=== PATIENT | male | born 1955 ===

== ENCOUNTER 2017-09-02 09:44 | Inpatient (IN) | payer OTHER ==
--- NOTE | 2017-09-02 10:58 | C.PDOC ---
History Of Present Illness 62 y/o male with PMHx of Asthma and HTN presents to ED with complaints of persistent sob, cough and chest tightness for 3 weeks. Patient states he has no medication for nebulizer and inhaler. Patient admits he is not compliant with any of his chronic medication. Patient denies fever, chills, nausea or any other complaints at this time. No h/o intubations for asthma. Time Seen by Provider: 09/02/17 10:45 Chief Complaint (Nursing): Shortness Of Breath History Per: Patient History/Exam Limitations: no limitations Onset/Duration Of Symptoms: Days Current Symptoms Are (Timing): Still Present Initiating Event: Upper Respiratory Illness Past Medical History Reviewed: Historical Data, Nursing Documentation, Vital Signs Vital Signs: Last Vital Signs Temp 97.5 F L 09/03/17 07:43 Pulse 92 H 09/03/17 08:51 Resp 20 09/03/17 07:43 BP 145/85 09/03/17 07:43 Pulse Ox 98 09/03/17 12:20 - Medical History PMH: Asthma, HTN Surgical History: No Surg Hx - [facility] Procedures EXCISION OF SMALL INTESTINE, ENDO, DIAGN (06/17/16) Family History: States: No Known Family Hx - Social History Hx Tobacco Use: No Hx Alcohol Use: No Hx Substance Use: No - Immunization History Hx Tetanus Toxoid Vaccination: No Hx Influenza Vaccination: No Hx Pneumococcal Vaccination: No Review Of Systems Constitutional: Negative for: Fever, Chills Cardiovascular: Positive for: Chest Pain. Negative for: Palpitations Respiratory: Positive for: Cough, Shortness of Breath Gastrointestinal: Negative for: Nausea, Vomiting Skin: Negative for: Rash Physical Exam - Physical Exam Appears: Non-toxic, No Acute Distress, Other (pt speaking in full sentences) Skin: Warm, Dry, No Rash Head: Atraumatic, Normacephalic Eye(s): bilateral: Normal Inspection, EOMI Nose: Normal Oral Mucosa: Moist Neck: Normal ROM, Supple Chest: Symmetrical Cardiovascular: Rhythm Regular Respiratory: No Accessory Muscle Use, No Rales, No Rhonchi, Wheezing (bilateral) Gastrointestinal/Abdominal: Soft, No Tenderness, No Guarding, No Rebound Extremity: No Pedal Edema, Capillary Refill (<2 seconds) Neurological/Psych: Oriented x3 ED Course And Treatment - Laboratory Results Result Diagrams: 09/03/17 06:37 09/02/17 11:29 ECG: Interpreted By Me, Viewed By Me ECG Rhythm: Sinus Rhythm Rate From EC (BPM) O2 Sat by Pulse Oximetry: 98 (RA) Pulse Ox Interpretation: Normal - Other Rad CXR X-Ray: Viewed By Me, Read By Radiologist Interpretation: HISTORY: SOB. COMPARISON: Chest x-ray performed 06/17/16. TECHNIQUE: Chest, one view. FINDINGS: Examination limited by habitus. LUNGS : No focal consolidation. Please note that chest x-ray has limited sensitivity for the detection of pulmonary masses. PLEURA: No significant pleural effusion identified. No definite pneumothorax . CARDIOVASCULAR: Heart size appears within normal limits. OSSEOUS STRUCTURES: No acute osseous abnormality identified. VISUALIZED UPPER ABDOMEN: Unremarkable. OTHER FINDINGS: None. IMPRESSION: No focal consolidation, significant pleural effusion, or definite pneumothorax identified. Progress Note: ECG, CXR, Neb treatment ordered. On reassessment, patient is still sob and wheezing. Discussed with who will admit patient under his service Disposition - Disposition Disposition: HOSPITALIZED Disposition Time: 17:00 Condition: STABLE - Clinical Impression Clinical Impression: Asthma with status asthmaticus - PA / FASHION PHOTOGRAPHER / Resident Statement MD/DO has reviewed & agrees with the documentation as recorded. - Scribe Statement The provider has reviewed the documentation as recorded by the Pollyibbrenna Adorno All medical record entries made by the Pollyibbrenna were at my direction and personally dictated by me. I have reviewed the chart and agree that the record accurately reflects my personal performance of the history, physical exam, medical decision making, and the department course for this patient. I have also personally directed, reviewed, and agree with the discharge instructions and disposition.
[2017-09-02] MEDS ORDERED: Sodium Chloride 0.9% 1,000 ML IV ONE (10:59)
[2017-09-02] MEDS ORDERED: Albuterol-Ipratrop 3 mg / 0.5 (3 ml) UD INH STA ×4 (10:59→14:11)
[2017-09-02] MEDS ORDERED: Sodium Chloride 0.9% 1,000 ML ONE (11:19)
[2017-09-02] MEDS ORDERED: Albuterol-Ipratrop 3 mg / 0.5 (3 ml) UD ONE ×4 (11:24→15:06)
[2017-09-02 11:39] LABS: BASO # 0.1 K/uL (0.0-0.2); BASO % 1.1 % (0.0-2.0); EOS # 1.2 K/uL (0.0-0.7); EOS % 13.6 % (0.0-4.0); HEMOGLOBIN 14.8 g/dL (12.0-18.0); LYMPH # 1.7 K/uL (1.0-4.3); LYMPH % 19.9 % (20.0-40.0); MEAN CELL VOLUME 91.7 fL (80.0-94.0); MEAN CORPUSCULAR HEMOGLOBIN 31.1 pg (27.0-31.0); MEAN CORPUSCULAR HGB CONC 33.9 g/dL (33.0-37.0); MEAN PLATELET VOLUME 8.4 fL (7.2-11.7); MONO # 0.7 K/uL (0.0-0.8); MONO % 8.5 % (0.0-10.0); NEUT # 4.9 K/uL (1.8-7.0); NEUT % 56.9 % (50.0-75.0); RBC 4.75 Mil/uL (4.40-5.90); RED CELL DISTRIBUTION WIDTH 12.9 % (11.5-14.5); WHITE BLOOD COUNT 8.6 K/uL (4.8-10.8)
[2017-09-02 11:52] LABS: ALB/GLOB RATIO 1.3 (1.0-2.1); ALBUMIN 4.2 g/dL (3.5-5.0); ALT/SGPT 34 U/L (21-72); AST/SGOT 32 U/L (17-59); BLOOD UREA NITROGEN 21 mg/dL (9-20); CALCIUM 8.9 mg/dl (8.6-10.4); GFR AFRICAN-AMERICAN > 60; GFR NON-AFRICAN AMERICAN > 60
[2017-09-02 12:07] LABS: B-TYPE NATRIURETIC PEPTIDE 104 pg/mL (0-900); CK-MB 1.62 ng/mL (0.0-3.38)
--- NOTE | 2017-09-02 12:44 | RAD ---
HISTORY: SOB COMPARISON: Chest x-ray performed 06/17/16 TECHNIQUE: Chest, one view. FINDINGS: Examination limited by habitus. LUNGS: No focal consolidation. Please note that chest x-ray has limited sensitivity for the detection of pulmonary masses. PLEURA: No significant pleural effusion identified. No definite pneumothorax . CARDIOVASCULAR: Heart size appears within normal limits. OSSEOUS STRUCTURES: No acute osseous abnormality identified. VISUALIZED UPPER ABDOMEN: Unremarkable. OTHER FINDINGS: None. IMPRESSION: No focal consolidation, significant pleural effusion, or definite pneumothorax identified.
[2017-09-02] MEDS ORDERED: Albuterol-Ipratrop 3 mg / 0.5 (3 ml) UD INH PRN (15:39)
--- NOTE | 2017-09-02 16:11 | CP.PCM.HP ---
<Flaca Isabel - Last Filed: 09/02/17 16:12> History of Present Illness - History of Present Illness History of Present Illness: CC - "Shortness of breath" HPI - Patient is a 60 year old male with history of asthma who presents to the emergency department with complaint of cough, SOB, whezing, and chest tightness that began 3 weeks ago. Patient states that he is supposed to be using his albuterol outpatient but has ran out and is not taking the other medications. He reports that he is supposed to follow up in the clinic downstairs. He has made No history of intubation for asthma exacerbation. Patient denies fever/chills, head aches, changes in vision, N/V/ abd pain, diahhrea. Admits to mild muscle aches. Past medical hx: asthma, GERD Past surgical hx: none Family Hx: mother and father had HTN and DM Meds: Albuterol pump, has not used any meds in 3 weeks because he ran out Allergies: none Social hx: lives with judaism friends, denies smoking, alcohol use, or drugs. Work at a car [employer] PMD - Dr. Goldsmith, last visit June 2017 Present on Admission - Present on Admission Any Indicators Present on Admission: No Review of Systems - Constitutional Constitutional: absent: Chills, Fever - EENT Eyes: absent: Blurred Vision, Change in Vision - Cardiovascular Cardiovascular: absent: Chest Pain, Chest Pain at Rest, Palpitations - Respiratory Respiratory: absent: Cough, Dyspnea, Dyspnea on Exertion - Gastrointestinal Gastrointestinal: absent: Abdominal Pain, Constipation, Diarrhea, Nausea, Vomiting - Genitourinary Genitourinary: absent: Change in Urinary Stream, Difficulty Urinating - Neurological Neurological: absent: Abnormal Gait, Tingling, Weakness Past Patient History - Infectious Disease Hx of Infectious Diseases: None - Past Medical History & Family History Past Medical History?: Yes - Past Social History Smoking Status: Former Smoker - CARDIAC Hx Hypertension: Yes - PULMONARY Hx Asthma: Yes - NEUROLOGICAL Hx Neurological Disorder: No - HEENT Hx HEENT Problems: No - RENAL Hx Chronic Kidney Disease: No - ENDOCRINE/METABOLIC Hx Endocrine Disorders: No - HEMATOLOGICAL/ONCOLOGICAL Hx Blood Disorders: No Hx Blood Transfusions: No - INTEGUMENTARY Hx Dermatological Problems: No - MUSCULOSKELETAL/RHEUMATOLOGICAL Hx Musculoskeletal Disorders: No Hx Falls: No - GASTROINTESTINAL Hx Gastrointestinal Disorders: No - GENITOURINARY/GYNECOLOGICAL Hx Genitourinary Disorders: No - PSYCHIATRIC Hx Substance Use: No - SURGICAL HISTORY Hx Surgeries: No - ANESTHESIA Hx Anesthesia: No Hx Anesthesia Reactions: No Meds Allergies/Adverse Reactions: Allergies Allergy/AdvReac Type Severity Reaction Status Date / Time No Known Allergies Allergy Verified 06/15/16 16:37 Physical Exam - Constitutional Appears: Non-toxic, No Acute Distress - Head Exam Head Exam: ATRAUMATIC, NORMAL INSPECTION - Eye Exam Eye Exam: EOMI Pupil Exam: NORMAL ACCOMODATION - ENT Exam ENT Exam: Mucous Membranes Moist - Respiratory Exam Respiratory Exam: Wheezes, NORMAL BREATHING PATTERN. absent: Accessory Muscle Use, Clear to Auscultation Bilateral, Respiratory Distress Additional comments: speaking in full sentences - Cardiovascular Exam Cardiovascular Exam: REGULAR RHYTHM, +S1, +S2 - GI/Abdominal Exam GI & Abdominal Exam: Normal Bowel Sounds, Soft. absent: Distended, Firm, Guarding, Tenderness - Extremities Exam Extremities exam: Positive for: normal inspection - Back Exam Back exam: NORMAL INSPECTION. absent: CVA tenderness (L), CVA tenderness (R), paraspinal tenderness - Neurological Exam Neurological exam: Alert, CN II-XII Intact, Normal Gait, Oriented x3 - Psychiatric Exam Psychiatric exam: Normal Affect, Normal Mood - Skin Skin Exam: Dry, Intact, Normal Color, Warm Results - Vital Signs Recent Vital Signs: Last Vital Signs Temp 98.3 F 09/02/17 09:48 Pulse 74 09/02/17 14:09 Resp 14 09/02/17 14:09 BP 146/89 09/02/17 14:09 Pulse Ox 98 09/02/17 14:44 - Labs Result Diagrams: 09/02/17 11:29 09/02/17 11:29 Labs: Laboratory Results - last 24 hr 09/02/17 09/02/17 11:29 11:29 WBC 8.6 RBC 4.75 Hgb 14.8 Hct 43.5 MCV 91.7 MCH 31.1 H MCHC 33.9 RDW 12.9 Plt Count 246 MPV 8.4 Neut % (Auto) 56.9 Lymph % (Auto) 19.9 L Runnels % (Auto) 8.5 Eos % (Auto) 13.6 H Baso % (Auto) 1.1 Neut # (Auto) 4.9 Lymph # (Auto) 1.7 Runnels # (Auto) 0.7 Eos # (Auto) 1.2 H Baso # (Auto) 0.1 Sodium 138 Potassium 4.0 Chloride 99 Carbon Dioxide 28 Anion Gap 15 BUN 21 H Creatinine 0.8 Est GFR ( Amer) > 60 Est GFR (Non-Af Amer) > 60 Random Glucose 99 Calcium 8.9 Total Bilirubin 0.5 AST 32 ALT 34 Alkaline Phosphatase 70 Total Creatine Kinase 129 CK-MB (Mass) 1.62 Troponin I < 0.0120 NT-Pro-B Natriuret Pep 104 Total Protein 7.5 Albumin 4.2 Globulin 3.3 Albumin/Globulin Ratio 1.3 Assessment & Plan - Assessment and Plan (Free Text) Assessment: Asthma exacerbation Patient is speaking in full sentences, wheezing Duonebs prn wheezing Q4 hours with peak flows SoluMedrol 40mg IVP Q6 Singulair 10mg PO HS Advair 250/50 1 puff Q12 hours Chest X rya - no signs of pneumonia WBC wnl ,afebrile f/u influenza f/u am labs Patient is noncompliant with follow up or with medications at home Hypertension Patient was prescribed meds on last visit but has no been taking Amlodipine 5mg PO daily Can increase if indicated Prophylactic Measures Protonix 40mg PO daily Lovenox 40mg SC daily Heart healthy diet <Armani Parsons H - Last Filed: 09/02/17 17:59> Results - Vital Signs Recent Vital Signs: Last Vital Signs Temp 98.3 F 09/02/17 09:48 Pulse 74 09/02/17 14:09 Resp 14 09/02/17 14:09 BP 146/89 09/02/17 14:09 Pulse Ox 98 09/02/17 14:44 - Labs Result Diagrams: 09/02/17 11:29 09/02/17 11:29 Labs: Laboratory Results - last 24 hr 09/02/17 09/02/17 11:29 11:29 WBC 8.6 RBC 4.75 Hgb 14.8 Hct 43.5 MCV 91.7 MCH 31.1 H MCHC 33.9 RDW 12.9 Plt Count 246 MPV 8.4 Neut % (Auto) 56.9 Lymph % (Auto) 19.9 L Runnels % (Auto) 8.5 Eos % (Auto) 13.6 H Baso % (Auto) 1.1 Neut # (Auto) 4.9 Lymph # (Auto) 1.7 Runnels # (Auto) 0.7 Eos # (Auto) 1.2 H Baso # (Auto) 0.1 Sodium 138 Potassium 4.0 Chloride 99 Carbon Dioxide 28 Anion Gap 15 BUN 21 H Creatinine 0.8 Est GFR ( Amer) > 60 Est GFR (Non-Af Amer) > 60 Random Glucose 99 Calcium 8.9 Total Bilirubin 0.5 AST 32 ALT 34 Alkaline Phosphatase 70 Total Creatine Kinase 129 CK-MB (Mass) 1.62 Troponin I < 0.0120 NT-Pro-B Natriuret Pep 104 Total Protein 7.5 Albumin 4.2 Globulin 3.3 Albumin/Globulin Ratio 1.3 Attending/Attestation - Attestation I have personally seen and examined this patient.: Yes I have fully participated in the care of the patient.: Yes I have reviewed all pertinent clinical information: Yes Notes (Text): 09/02/17 17:59 Medical attending: Patient was seen and examined by me, agree the above note by medical unit secretary. Patient was seen in the ER. He was not in any acute distress however he did having wheezing on examination. Will order IV solumedrol, nebulizer treatments and also singuliar. check pre and post peak flows. Thank you very much, Armani Parsons
[2017-09-02] MEDS: MethylPREDNISolone 40 mg Vial IVP SCH ×3 (18:44→23:54)
[2017-09-03] MEDS: Acetylcysteine 20% Inhal Soln (4ml) INH SCH ×3 (00:23→21:50)
[2017-09-03 01:33] VITALS: RESP 20
[2017-09-03] MEDS: MethylPREDNISolone 40 mg Vial IVP SCH ×2 (05:40→11:29)
[2017-09-03 07:18] LABS: BASO % 0.4 % (0.0-2.0); HEMOGLOBIN 14.3 g/dL (12.0-18.0); LYMPH % 9.5 % (20.0-40.0); MEAN CELL VOLUME 91.3 fL (80.0-94.0); MEAN CORPUSCULAR HEMOGLOBIN 30.9 pg (27.0-31.0); MEAN CORPUSCULAR HGB CONC 33.9 g/dL (33.0-37.0); MEAN PLATELET VOLUME 8.5 fL (7.2-11.7); MONO # 0.2 K/uL (0.0-0.8); MONO % 2.1 % (0.0-10.0); NEUT # 9.6 K/uL (1.8-7.0); PLATELET COUNT 241 K/uL (130-400); RBC 4.61 Mil/uL (4.40-5.90); RED CELL DISTRIBUTION WIDTH 13.1 % (11.5-14.5); WHITE BLOOD COUNT 10.9 K/uL (4.8-10.8)
[2017-09-03] MEDS: Fluticasone-Salmeterol 250-50mcg Diskus INH SCH ×3 (07:29→21:48)
[2017-09-03 07:59] LABS: MAGNESIUM 1.7 mg/dL (1.6-2.3)
[2017-09-03] MEDS ORDERED: Acetylcysteine 20% Inhal Soln (4ml) INH PRN (09:16)
[2017-09-03] MEDS ORDERED: Influenza Vaccine 60 mcg/0.5 mL SYR (4YR UP) IM ONE (10:00)
[2017-09-03] MEDS ORDERED: Pneumococcal 23-Valent Vaccine IM ONE ×2 (10:00)
[2017-09-03 10:22] LABS: BANDS 1 % (0-2); LYMPHOCYTE 9 % (20-40); MONOCYTE 2 % (0-10); NEUTROPHIL 88 % (50-75); PLATELET ESTIMATE NORMAL (NORMAL); TOTAL CELLS COUNTED 100
[2017-09-03] MEDS: Pantoprazole 40 mg EC Tab PO SCH (11:29)
[2017-09-03] MEDS: Enoxaparin 40 mg Syringe SC SCH (11:29)
[2017-09-03] MEDS: guaiFENesin 600 mg ER Tab PO SCH ×2 (11:29→17:16)
[2017-09-03] MEDS: Albuterol-Ipratrop 3 mg / 0.5 (3 ml) UD INH SCH ×2 (11:30→21:33)
[2017-09-03] MEDS ORDERED: MethylPREDNISolone 40 mg Vial IVP SCH (11:34)
--- NOTE | 2017-09-03 12:53 | CP.PCM.PN ---
<Theodore Luis - Last Filed: 09/03/17 12:50> Subjective - Date & Time of Evaluation Date of Evaluation: 09/03/17 Time of Evaluation: 11:00 - Subjective Subjective: Medicine progress note for Dr. Parsons Patient seen and examined. Patient reports that he feels like he has some phlegm that he cannot clear. Patient reports continued cough. Denies fever, chills, chest pain, dyspnea, abdominal pain, dysuria. Objective - Vital Signs/Intake and Output Vital Signs (last 24 hours): Temp Pulse Resp BP Pulse Ox 97.5 F L 92 H 20 145/85 98 09/03/17 07:43 09/03/17 08:51 09/03/17 07:43 09/03/17 07:43 09/03/17 07:43 Intake and Output: 09/03/17 09/03/17 06:59 18:59 Intake Total 400 Output Total 2 Balance 398 - Medications Medications: Current Medications Acetylcysteine (Acetylcysteine 20%) 4 ml INH RQ4 [facility] Albuterol/Ipratropium (Duoneb 3 Mg/0.5 Mg (3 Ml) Ud) 3 ml INH RQ4 [facility] Amlodipine Besylate (Norvasc) 5 mg PO DAILY [facility] Last Admin: 09/03/17 11:30 Dose: 5 mg Enoxaparin Sodium (Lovenox) 40 mg SC DAILY [facility] Last Admin: 09/03/17 11:29 Dose: 40 mg Guaifenesin (Mucinex La) 600 mg PO BID [facility] Last Admin: 09/03/17 11:29 Dose: 600 mg Methylprednisolone (Solu-Medrol) 60 mg IVP Q6 [facility] Montelukast Sodium (Singulair) 10 mg PO HS [facility] Last Admin: 09/02/17 21:28 Dose: 10 mg Pantoprazole Sodium (Protonix Ec Tab) 40 mg PO DAILY [facility] Last Admin: 09/03/17 11:29 Dose: 40 mg Fluticasone/Salmeterol (Advair Diskus 250/50) 1 puff INH RQ12 [facility] Last Admin: 09/03/17 07:29 Dose: Not Given - Labs Labs: 09/03/17 06:37 09/02/17 11:29 - Constitutional Appears: No Acute Distress - Head Exam Head Exam: ATRAUMATIC, NORMOCEPHALIC - Eye Exam Eye Exam: EOMI, Normal appearance - ENT Exam ENT Exam: Mucous Membranes Moist - Respiratory Exam Respiratory Exam: NORMAL BREATHING PATTERN. absent: Rales, Rhonchi, Wheezes Additional comments: Coarse breath sounds with congestion heard when patient coughs. Patient speaking in non-labored full sentences. - Cardiovascular Exam Cardiovascular Exam: REGULAR RHYTHM, +S1, +S2 - GI/Abdominal Exam GI & Abdominal Exam: Soft, Normal Bowel Sounds. absent: Tenderness - Extremities Exam Extremities Exam: absent: Pedal Edema, Tenderness - Neurological Exam Neurological Exam: Alert, Awake, Oriented x3 - Psychiatric Exam Psychiatric exam: Normal Affect, Normal Mood - Skin Skin Exam: Dry, Warm Assessment and Plan - Assessment and Plan (Free Text) Plan: Asthma exacerbation Duonebs Q4H [facility] with Mucomyst Q4H [facility] alongside Mucinex 600 mg PO BID SoluMedrol 60mg IVP Q6 Singulair 10mg PO HS Advair 250/50 1 puff Q12 hours Chest X ray - no signs of pneumonia ifluenza negative Patient is noncompliant with follow up or with medications at home Hypertension Patient was prescribed meds on last visit but has no been taking Amlodipine 5mg PO daily Prophylactic Measures Protonix 40mg PO daily Lovenox 40mg SC daily Heart healthy diet Disposition: Likely discharge tomorrow Case DW Dr. Jaqueline Luis PGY-1 <Armani Parsons H - Last Filed: 09/03/17 16:17> Objective - Vital Signs/Intake and Output Vital Signs (last 24 hours): Temp Pulse Resp BP Pulse Ox 97.5 F L 92 H 20 145/85 98 09/03/17 07:43 09/03/17 08:51 09/03/17 07:43 09/03/17 07:43 09/03/17 07:43 Intake and Output: 09/03/17 09/03/17 06:59 18:59 Intake Total 400 Output Total 2 Balance 398 - Medications Medications: Current Medications Acetylcysteine (Acetylcysteine 20%) 4 ml INH RQ4 [facility] Last Admin: 09/03/17 11:30 Dose: Not Given Albuterol/Ipratropium (Duoneb 3 Mg/0.5 Mg (3 Ml) Ud) 3 ml INH RQ4 [facility] Last Admin: 09/03/17 11:30 Dose: 3 ml Amlodipine Besylate (Norvasc) 5 mg PO DAILY [facility] Last Admin: 09/03/17 11:30 Dose: 5 mg Enoxaparin Sodium (Lovenox) 40 mg SC DAILY [facility] Last Admin: 09/03/17 11:29 Dose: 40 mg Guaifenesin (Mucinex La) 600 mg PO BID [facility] Last Admin: 09/03/17 11:29 Dose: 600 mg Methylprednisolone (Solu-Medrol) 60 mg IVP Q6 [facility] Montelukast Sodium (Singulair) 10 mg PO HS [facility] Last Admin: 09/02/17 21:28 Dose: 10 mg Pantoprazole Sodium (Protonix Ec Tab) 40 mg PO DAILY [facility] Last Admin: 09/03/17 11:29 Dose: 40 mg Fluticasone/Salmeterol (Advair Diskus 250/50) 1 puff INH RQ12 [facility] Last Admin: 09/03/17 07:29 Dose: Not Given - Labs Labs: 09/03/17 06:37 09/02/17 11:29 Attending/Attestation - Attestation I have personally seen and examined this patient.: Yes I have fully participated in the care of the patient.: Yes I have reviewed all pertinent clinical information, including history, physical exam and plan: Yes Notes (Text): 09/03/17 16:14 Medical attending: Patient was seen and examined by me. Agree with the above note by resident We needed a chemist steroids as the patient does not understand any Yakut or my minimal Spansih. He explained that he was having coughing and thick sputum. He had wheezing on exam I tried to find a peak flow meter however I could not find one on the floor. The patient will need to get increase solumedrol and then we also changed his nebulizers over to be given scedueled thank you Armani Parsons
[2017-09-04] MEDS: Albuterol-Ipratrop 3 mg / 0.5 (3 ml) UD INH SCH ×7 (00:23→20:35)
[2017-09-04] MEDS: Acetylcysteine 20% Inhal Soln (4ml) INH SCH ×5 (04:57→20:35)
[2017-09-04] MEDS: Fluticasone-Salmeterol 250-50mcg Diskus INH SCH ×2 (07:35→20:35)
[2017-09-04 08:49] LABS: BASO % 0.1 % (0.0-2.0); HEMOGLOBIN 13.4 g/dL (12.0-18.0); LYMPH # 0.7 K/uL (1.0-4.3); LYMPH % 4.2 % (20.0-40.0); MEAN CORPUSCULAR HEMOGLOBIN 30.9 pg (27.0-31.0); MEAN PLATELET VOLUME 8.7 fL (7.2-11.7); MONO # 0.3 K/uL (0.0-0.8); MONO % 2.1 % (0.0-10.0); NEUT # 15.7 K/uL (1.8-7.0); NEUT % 93.6 % (50.0-75.0); PLATELET COUNT 247 K/uL (130-400); RBC 4.34 Mil/uL (4.40-5.90); RED CELL DISTRIBUTION WIDTH 13.1 % (11.5-14.5); WHITE BLOOD COUNT 16.8 K/uL (4.8-10.8)
[2017-09-04 09:02] LABS: ALB/GLOB RATIO 1.3 (1.0-2.1); ALBUMIN 3.9 g/dL (3.5-5.0); ALT/SGPT 28 U/L (21-72); AST/SGOT 24 U/L (17-59); BLOOD UREA NITROGEN 27 mg/dL (9-20); CALCIUM 8.8 mg/dl (8.6-10.4); GFR AFRICAN-AMERICAN > 60; GFR NON-AFRICAN AMERICAN > 60
--- NOTE | 2017-09-04 09:28 | CP.PCM.PN ---
<Theodore Luis - Last Filed: 09/04/17 09:25> Subjective - Date & Time of Evaluation Date of Evaluation: 09/04/17 Time of Evaluation: 09:10 - Subjective Subjective: Medicine progress note for Dr. Parsons Patient seen and examined at bedside. Patient reports that he is able to produce a little bit of sputum but remains unable to cough up the majority of it. Patient admits to chest wall tenderness with excessive coughing. Patient was later walked on rounds and was viewed coughing excessively. Patient stated that his heart was racing while we were ambulating. Objective - Vital Signs/Intake and Output Vital Signs (last 24 hours): Temp Pulse Resp BP Pulse Ox 97.7 F 98 H 20 155/84 H 96 09/03/17 23:17 09/03/17 23:17 09/03/17 23:17 09/03/17 23:17 09/03/17 23:17 Intake and Output: 09/04/17 09/04/17 06:59 18:59 Intake Total 850 Output Total 2 Balance 848 - Medications Medications: Current Medications Acetylcysteine (Acetylcysteine 20%) 4 ml INH RQ4 [facility] Last Admin: 09/04/17 04:57 Dose: Not Given Albuterol/Ipratropium (Duoneb 3 Mg/0.5 Mg (3 Ml) Ud) 3 ml INH RQ4 [facility] Last Admin: 09/04/17 04:57 Dose: 3 ml Amlodipine Besylate (Norvasc) 10 mg PO DAILY [facility] Enoxaparin Sodium (Lovenox) 40 mg SC DAILY [facility] Last Admin: 09/03/17 11:29 Dose: 40 mg Guaifenesin (Mucinex La) 600 mg PO BID [facility] Last Admin: 09/03/17 17:16 Dose: 600 mg Methylprednisolone (Solu-Medrol) 60 mg IVP Q6 [facility] Last Admin: 09/04/17 05:58 Dose: 60 mg Montelukast Sodium (Singulair) 10 mg PO HS [facility] Last Admin: 09/03/17 21:54 Dose: 10 mg Pantoprazole Sodium (Protonix Ec Tab) 40 mg PO DAILY [facility] Last Admin: 09/03/17 11:29 Dose: 40 mg Fluticasone/Salmeterol (Advair Diskus 250/50) 1 puff INH RQ12 [facility] Last Admin: 09/03/17 21:48 Dose: 1 puff - Labs Labs: 09/04/17 08:13 09/04/17 08:13 - Additional Findings Additional findings: - Constitutional Appears: No Acute Distress - Head Exam Head Exam: ATRAUMATIC, NORMOCEPHALIC - Eye Exam Eye Exam: EOMI, Normal appearance - ENT Exam ENT Exam: Mucous Membranes Moist - Respiratory Exam Respiratory Exam: absent: Rales, Rhonchi. Additional comments: Wheezing bilaterally. Patient speaking in non-labored full sentences at rest, but is short of breath with ambulation. - Cardiovascular Exam Cardiovascular Exam: REGULAR RHYTHM, +S1, +S2 - GI/Abdominal Exam GI & Abdominal Exam: Soft, Normal Bowel Sounds. absent: Tenderness - Extremities Exam Extremities Exam: absent: Pedal Edema, Tenderness - Neurological Exam Neurological Exam: Alert, Awake, Oriented x3 - Psychiatric Exam Psychiatric exam: Normal Affect, Normal Mood - Skin Skin Exam: Dry, Warm Assessment and Plan - Assessment and Plan (Free Text) Plan: Asthma exacerbation Duonebs Q4H [facility] with Mucomyst Q4H [facility] alongside Mucinex 600 mg PO BID SoluMedrol 60mg IVP Q6 Singulair 10mg PO HS Advair 250/50 1 puff Q12 hours Chest X ray - no signs of pneumonia ifluenza negative Patient is noncompliant with follow up or with medications at home Started Azithromycin 500 mg IV daily and Rocephin 1 gm IV daily Hypertension Patient was prescribed meds on last visit but has no been taking Increased to Amlodipine 10 mg PO daily Prophylactic Measures Protonix 40mg PO daily Lovenox 40mg SC daily Heart healthy diet Disposition: Will re-evaluate tomorrow. Case DW Dr. Jaqueline Luis PGY-1 <Armani Parsons H - Last Filed: 09/04/17 11:29> Objective - Vital Signs/Intake and Output Vital Signs (last 24 hours): Temp Pulse Resp BP Pulse Ox 97.7 F 98 H 20 155/84 H 96 09/03/17 23:17 09/03/17 23:17 09/03/17 23:17 09/03/17 23:17 09/03/17 23:17 Intake and Output: 09/04/17 09/04/17 06:59 18:59 Intake Total 850 Output Total 2 Balance 848 - Medications Medications: Current Medications Acetylcysteine (Acetylcysteine 20%) 4 ml INH RQ4 [facility] Last Admin: 09/04/17 04:57 Dose: Not Given Albuterol/Ipratropium (Duoneb 3 Mg/0.5 Mg (3 Ml) Ud) 3 ml INH RQ4 [facility] Last Admin: 09/04/17 04:57 Dose: 3 ml Amlodipine Besylate (Norvasc) 10 mg PO DAILY [facility] Last Admin: 09/04/17 10:51 Dose: 10 mg Enoxaparin Sodium (Lovenox) 40 mg SC DAILY [facility] Last Admin: 09/04/17 10:51 Dose: 40 mg Guaifenesin (Mucinex La) 600 mg PO BID [facility] Last Admin: 09/04/17 10:51 Dose: 600 mg Azithromycin 500 mg/ Sodium (Chloride) 250 mls @ 250 mls/hr IVPB DAILY@1100 [facility] Last Admin: 09/04/17 10:58 Dose: 250 mls/hr Ceftriaxone Sodium 1 gm/ (Sodium Chloride) 100 mls @ 100 mls/hr IVPB DAILY [facility] Last Admin: 09/04/17 10:56 Dose: 100 mls/hr Methylprednisolone (Solu-Medrol) 60 mg IVP Q6 [facility] Last Admin: 09/04/17 11:10 Dose: 60 mg Montelukast Sodium (Singulair) 10 mg PO HS [facility] Last Admin: 09/03/17 21:54 Dose: 10 mg Pantoprazole Sodium (Protonix Ec Tab) 40 mg PO DAILY [facility] Last Admin: 09/04/17 10:57 Dose: 40 mg Fluticasone/Salmeterol (Advair Diskus 250/50) 1 puff INH RQ12 [facility] Last Admin: 09/03/17 21:48 Dose: 1 puff - Labs Labs: 09/04/17 08:13 09/04/17 08:13 Attending/Attestation - Attestation I have personally seen and examined this patient.: Yes I have fully participated in the care of the patient.: Yes I have reviewed all pertinent clinical information, including history, physical exam and plan: Yes Notes (Text): 09/04/17 11:28 Medical attending: Patient was seen and examined by me Reviewed the above note by the resident The patient was short of breath when we tried to stand him and walk him around. He reported feeling congested with a lot of pheglm We will re-evaluate him again tomorrow and consider DC tomorrow. thank you Armani Parsons
[2017-09-04] MEDS: Enoxaparin 40 mg Syringe SC SCH (10:51)
[2017-09-04] MEDS: guaiFENesin 600 mg ER Tab PO SCH ×2 (10:51→17:59)
[2017-09-04] MEDS: Pantoprazole 40 mg EC Tab PO SCH (10:57)
[2017-09-04] MEDS: Azithromycin 500 MG in Sodium Chloride 0.9% 250 ML IVPB SCH (10:58)
[2017-09-04 11:03] LABS: BANDS 2 % (0-2); LYMPHOCYTE 4 % (20-40); MONOCYTE 1 % (0-10); NEUTROPHIL 93 % (50-75); TOTAL CELLS COUNTED 100
[2017-09-04 11:04] LABS: ANISOCYTOSIS SLIGHT; PLATELET ESTIMATE NORMAL (NORMAL); TOXIC GRANULATION PRESENT
[2017-09-04 11:06] LABS: LARGE PLATELETS PRESENT
--- NOTE | 2017-09-04 14:36 | RAD ---
HISTORY: shortness of breath COMPARISON: Chest x-ray performed 09/02/17 TECHNIQUE: Chest, one view. FINDINGS: LUNGS: Mild left basilar atelectasis. Please note that chest x-ray has limited sensitivity for the detection of pulmonary masses. PLEURA: No significant pleural effusion identified. No definite pneumothorax . CARDIOVASCULAR: Cardiomegaly. OSSEOUS STRUCTURES: Degenerative changes. VISUALIZED UPPER ABDOMEN: Unremarkable. OTHER FINDINGS: None. IMPRESSION: Cardiomegaly. Mild left basilar atelectasis.
--- NOTE | 2017-09-04 15:20 | CARD ---
APPROVED REPORT EKG Measurement Heart [id number] <Conclusion> Normal sinus rhythm Minimal voltage criteria for LVH, may be normal variant Septal infarct, age undetermined Abnormal ECG
--- NOTE | 2017-09-04 15:20 | CARD ---
APPROVED REPORT EKG Measurement Heart [id number] <Conclusion> Normal sinus rhythm Normal ECG
[2017-09-05] MEDS: Acetylcysteine 20% Inhal Soln (4ml) INH SCH ×7 (00:04→23:55)
[2017-09-05] MEDS: Albuterol-Ipratrop 3 mg / 0.5 (3 ml) UD INH SCH ×7 (00:04→23:55)
[2017-09-05] MEDS: Fluticasone-Salmeterol 250-50mcg Diskus INH SCH ×2 (07:10→20:55)
--- NOTE | 2017-09-05 08:38 | CP.PCM.PN ---
<Theodore Luis - Last Filed: 09/05/17 09:49> Subjective - Date & Time of Evaluation Date of Evaluation: 09/05/17 Time of Evaluation: 08:30 - Subjective Subjective: Medicine progress note for Dr. Parsons Patient seen and examined at bedside. Patient reports that he has a dry cough at this time and that he still feels like there is some congestion. He still gets short of breath if he coughs excessively. Objective - Vital Signs/Intake and Output Vital Signs (last 24 hours): Temp Pulse Resp BP Pulse Ox 98.2 F 98 H 20 152/90 H 96 09/05/17 00:00 09/05/17 00:00 09/05/17 00:00 09/05/17 00:00 09/05/17 00:00 Intake and Output: 09/05/17 09/05/17 06:59 18:59 Intake Total 690 Balance 690 - Medications Medications: Current Medications Acetylcysteine (Acetylcysteine 20%) 4 ml INH RQ4 [facility] Last Admin: 09/05/17 03:11 Dose: 4 ml Albuterol/Ipratropium (Duoneb 3 Mg/0.5 Mg (3 Ml) Ud) 3 ml INH RQ4 [facility] Last Admin: 09/05/17 03:11 Dose: 3 ml Amlodipine Besylate (Norvasc) 10 mg PO DAILY [facility] Last Admin: 09/04/17 10:51 Dose: 10 mg Enoxaparin Sodium (Lovenox) 40 mg SC DAILY [facility] Last Admin: 09/04/17 10:51 Dose: 40 mg Guaifenesin (Mucinex La) 600 mg PO BID [facility] Last Admin: 09/04/17 17:59 Dose: 600 mg Azithromycin 500 mg/ Sodium (Chloride) 250 mls @ 250 mls/hr IVPB DAILY@1100 [facility] Last Admin: 09/04/17 10:58 Dose: 250 mls/hr Ceftriaxone Sodium 1 gm/ (Sodium Chloride) 100 mls @ 100 mls/hr IVPB DAILY [facility] Last Admin: 09/04/17 10:56 Dose: 100 mls/hr Methylprednisolone (Solu-Medrol) 60 mg IVP Q6 [facility] Last Admin: 09/05/17 05:22 Dose: 60 mg Montelukast Sodium (Singulair) 10 mg PO HS [facility] Last Admin: 09/04/17 21:13 Dose: 10 mg Pantoprazole Sodium (Protonix Ec Tab) 40 mg PO DAILY [facility] Last Admin: 09/04/17 10:57 Dose: 40 mg Fluticasone/Salmeterol (Advair Diskus 250/50) 1 puff INH RQ12 [facility] Last Admin: 09/04/17 07:35 Dose: 1 puff - Labs Labs: 09/04/17 08:13 09/04/17 08:13 - Additional Findings Additional findings: - Constitutional Appears: No Acute Distress - Head Exam Head Exam: ATRAUMATIC, NORMOCEPHALIC - Eye Exam Eye Exam: EOMI, Normal appearance - ENT Exam ENT Exam: Mucous Membranes Moist - Respiratory Exam Respiratory Exam: absent: Rales, Rhonchi. Additional comments: Wheezing on lower left lung base. Patient speaking in non-labored full sentences at rest. - Cardiovascular Exam Cardiovascular Exam: REGULAR RHYTHM, +S1, +S2 - GI/Abdominal Exam GI & Abdominal Exam: Soft, Normal Bowel Sounds. absent: Tenderness - Extremities Exam Extremities Exam: absent: Pedal Edema, Tenderness - Neurological Exam Neurological Exam: Alert, Awake, Oriented x3 - Psychiatric Exam Psychiatric exam: Normal Affect, Normal Mood - Skin Skin Exam: Dry, Warm Assessment and Plan - Assessment and Plan (Free Text) Plan: Asthma exacerbation Duonebs Q4H [facility] with Mucomyst Q4H [facility] alongside Mucinex 600 mg PO BID SoluMedrol 60mg IVP Q6 Singulair 10mg PO HS Advair 250/50 1 puff Q12 hours Chest X ray - no signs of pneumonia ifluenza negative Patient is noncompliant with follow up or with medications at home On 09/04/17, Azithromycin 500 mg IV daily and Rocephin 1 gm IV daily were started Hypertension Patient was prescribed meds on last visit but has no been taking Increased to Amlodipine 10 mg PO daily Prophylactic Measures Protonix 40mg PO daily Lovenox 40mg SC daily Heart healthy diet <Armani Parsons - Last Filed: 09/05/17 10:33> Objective - Vital Signs/Intake and Output Vital Signs (last 24 hours): Temp Pulse Resp BP Pulse Ox 98.1 F 109 H 20 142/82 94 L 09/05/17 08:52 09/05/17 08:52 09/05/17 08:52 09/05/17 08:52 09/05/17 08:52 Intake and Output: 09/05/17 09/05/17 06:59 18:59 Intake Total 690 Balance 690 - Medications Medications: Current Medications Acetylcysteine (Acetylcysteine 20%) 4 ml INH RQ4 [facility] Last Admin: 09/05/17 03:11 Dose: 4 ml Albuterol/Ipratropium (Duoneb 3 Mg/0.5 Mg (3 Ml) Ud) 3 ml INH RQ4 [facility] Last Admin: 09/05/17 03:11 Dose: 3 ml Amlodipine Besylate (Norvasc) 10 mg PO DAILY [facility] Last Admin: 09/05/17 09:14 Dose: 10 mg Enoxaparin Sodium (Lovenox) 40 mg SC DAILY [facility] Last Admin: 09/05/17 09:14 Dose: 40 mg Guaifenesin (Mucinex La) 600 mg PO BID [facility] Last Admin: 09/05/17 09:14 Dose: 600 mg Azithromycin 500 mg/ Sodium (Chloride) 250 mls @ 250 mls/hr IVPB DAILY@1100 [facility] Last Admin: 09/04/17 10:58 Dose: 250 mls/hr Ceftriaxone Sodium 1 gm/ (Sodium Chloride) 100 mls @ 100 mls/hr IVPB DAILY [facility] Last Admin: 09/05/17 10:14 Dose: 100 mls/hr Montelukast Sodium (Singulair) 10 mg PO HS [facility] Last Admin: 09/04/17 21:13 Dose: 10 mg Pantoprazole Sodium (Protonix Ec Tab) 40 mg PO DAILY [facility] Last Admin: 09/05/17 09:14 Dose: 40 mg Fluticasone/Salmeterol (Advair Diskus 250/50) 1 puff INH RQ12 [facility] Last Admin: 09/04/17 07:35 Dose: 1 puff - Labs Labs: 09/04/17 08:13 09/04/17 08:13 Attending/Attestation - Attestation I have personally seen and examined this patient.: Yes I have fully participated in the care of the patient.: Yes I have reviewed all pertinent clinical information, including history, physical exam and plan: Yes Notes (Text): Medical attending: Patient was seen and examined by me Agree with the above note by the resident The patient finally reported noticeable improvment with his breathing today. For now will decrease the soluymedrol to 40 IV Q8hrs For the new team seeing him, my advice is to have him stand up in walk in the hallway to get a better idea of how he is doing. thank you Armani Parsons
[2017-09-05] MEDS: Enoxaparin 40 mg Syringe SC SCH (09:14)
[2017-09-05] MEDS: Pantoprazole 40 mg EC Tab PO SCH (09:14)
[2017-09-05] MEDS: guaiFENesin 600 mg ER Tab PO SCH ×2 (09:14→17:37)
[2017-09-05] MEDS: Azithromycin 500 MG in Sodium Chloride 0.9% 250 ML IVPB SCH (11:35)
[2017-09-06] MEDS: Acetylcysteine 20% Inhal Soln (4ml) INH SCH ×2 (03:07→16:09)
[2017-09-06] MEDS: Albuterol-Ipratrop 3 mg / 0.5 (3 ml) UD INH SCH ×3 (03:08→16:10)
[2017-09-06] MEDS: Enoxaparin 40 mg Syringe SC SCH (09:46)
[2017-09-06] MEDS: Pantoprazole 40 mg EC Tab PO SCH (09:46)
[2017-09-06] MEDS: guaiFENesin 600 mg ER Tab PO SCH (09:46)
[2017-09-06] MEDS: Fluticasone-Salmeterol 250-50mcg Diskus INH SCH (10:59)
[2017-09-06] MEDS: Azithromycin 500 MG in Sodium Chloride 0.9% 250 ML IVPB SCH (11:32)
[2017-09-06 16:49] VITALS: BP 156/82; PULSE 93; TEMP 98.4; O2SAT 98
--- NOTE | 2017-09-06 18:41 | CP.PCM.DIS ---
<Saundra Griffin - Last Filed: 09/06/17 18:37> Provider - Provider Date of Admission: 09/04/17 14:27 Attending physician: Armani Parsons DO Time Spent in preparation of Discharge (in minutes): 35 Diagnosis - Discharge Diagnosis (1) Asthma exacerbation Status: Acute Hospital Course - Lab Results Lab Results: Most Recent Lab Values WBC 16.8 K/uL (4.8-10.8) H D 09/04/17 08:13 RBC 4.34 Mil/uL (4.40-5.90) L 09/04/17 08:13 Hgb 13.4 g/dL (12.0-18.0) 09/04/17 08:13 Hct 39.4 % (35.0-51.0) 09/04/17 08:13 MCV 91.0 fL (80.0-94.0) 09/04/17 08:13 MCH 30.9 pg (27.0-31.0) 09/04/17 08:13 MCHC 34.0 g/dL (33.0-37.0) 09/04/17 08:13 RDW 13.1 % (11.5-14.5) 09/04/17 08:13 Plt Count 247 K/uL (130-400) 09/04/17 08:13 MPV 8.7 fL (7.2-11.7) 09/04/17 08:13 Neut % (Auto) 93.6 % (50.0-75.0) H 09/04/17 08:13 Lymph % (Auto) 4.2 % (20.0-40.0) L 09/04/17 08:13 Hettinger % (Auto) 2.1 % (0.0-10.0) 09/04/17 08:13 Eos % (Auto) 0.0 % (0.0-4.0) 09/04/17 08:13 Baso % (Auto) 0.1 % (0.0-2.0) 09/04/17 08:13 Neut # (Auto) 15.7 K/uL (1.8-7.0) H 09/04/17 08:13 Lymph # (Auto) 0.7 K/uL (1.0-4.3) L 09/04/17 08:13 Hettinger # (Auto) 0.3 K/uL (0.0-0.8) 09/04/17 08:13 Eos # (Auto) 0.0 K/uL (0.0-0.7) 09/04/17 08:13 Baso # (Auto) 0.0 K/uL (0.0-0.2) 09/04/17 08:13 Neutrophils % (Manual) 93 % (50-75) H 09/04/17 08:13 Band Neutrophils % 2 % (0-2) 09/04/17 08:13 Lymphocytes % (Manual) 4 % (20-40) L 09/04/17 08:13 Monocytes % (Manual) 1 % (0-10) 09/04/17 08:13 Toxic Granulation Present 09/04/17 08:13 Platelet Estimate Normal (NORMAL) 09/04/17 08:13 Large Platelets Present 09/04/17 08:13 Anisocytosis (manual) Slight 09/04/17 08:13 Sodium 138 mmol/L (132-148) 09/04/17 08:13 Potassium 3.9 mmol/L (3.6-5.2) 09/04/17 08:13 Chloride 99 mmol/L (98-107) 09/04/17 08:13 Carbon Dioxide 25 mmol/L (22-30) 09/04/17 08:13 Anion Gap 18 (10-20) 09/04/17 08:13 BUN 27 mg/dL (9-20) H 09/04/17 08:13 Creatinine 0.8 mg/dL (0.8-1.5) 09/04/17 08:13 Est GFR ( Amer) > 60 09/04/17 08:13 Est GFR (Non-Af Amer) > 60 09/04/17 08:13 Random Glucose 141 mg/dL (75-110) H 09/04/17 08:13 Calcium 8.8 mg/dl (8.6-10.4) 09/04/17 08:13 Phosphorus 3.3 mg/dL (2.5-4.5) 09/03/17 06:37 Magnesium 1.7 mg/dL (1.6-2.3) 09/03/17 06:37 Total Bilirubin 0.4 mg/dL (0.2-1.3) 09/04/17 08:13 AST 24 U/L (17-59) 09/04/17 08:13 ALT 28 U/L (21-72) 09/04/17 08:13 Alkaline Phosphatase 52 U/L (38-126) 09/04/17 08:13 Total Creatine Kinase 129 U/L (55-170) 09/02/17 11:29 CK-MB (Mass) 1.62 ng/mL (0.0-3.38) 09/02/17 11:29 Troponin I < 0.0120 ng/mL (0.00-0.120) 09/02/17 11:29 NT-Pro-B Natriuret Pep 104 pg/mL (0-900) 09/02/17 11:29 Total Protein 6.8 g/dL (6.3-8.3) 09/04/17 08:13 Albumin 3.9 g/dL (3.5-5.0) 09/04/17 08:13 Globulin 2.9 gm/dL (2.2-3.9) 09/04/17 08:13 Albumin/Globulin Ratio 1.3 (1.0-2.1) 09/04/17 08:13 Influenza Typ A,B (EIA) Negative for flu a/b (NEGATIVE) 09/02/17 18:55 - Hospital Course Hospital Course: Upon admission: Patient is a 60 year old male with history of asthma who presents to the emergency department with complaint of cough, SOB, whezing, and chest tightness that began 3 weeks ago. Patient states that he is supposed to be using his albuterol outpatient but has ran out and is not taking the other medications. He reports that he is supposed to follow up in the clinic downstairs. He has made No history of intubation for asthma exacerbation. Patient denies fever/chills, head aches, changes in vision, N/V/ abd pain, diahhrea. Admits to mild muscle aches. Hospital course: Patient was admitted for asthma exacerbation and started on Duonebs, solumedrol , singulair, and advair. CXR was done and showed no signs of penumonia. Influenza was negative. Patient was started on emperic azithromycin and rocephin. Patient improved over the course of his stay and was able to walk without getting SOB. Patient was also started on amlodipine for HTN. Upon discharge: Patient was discharged with amlodipine, zithromax, and medrol dose pack. He was instructed to follow up at the [facility]. Please note that this is a summary of events. For more details, please see complete medical record. Discharge Exam - Head Exam Head Exam: ATRAUMATIC, NORMOCEPHALIC - Eye Exam Eye Exam: EOMI, Normal appearance, PERRL - Respiratory Exam Respiratory Exam: NORMAL BREATHING PATTERN, UNREMARKABLE - Cardiovascular Exam Cardiovascular Exam: REGULAR RHYTHM - GI/Abdominal Exam GI & Abdominal Exam: Normal Bowel Sounds, Unremarkable - Extremities Exam Extremities exam: normal inspection - Neurological Exam Neurological exam: Alert, Oriented x3 - Psychiatric Exam Psychiatric exam: Normal Affect, Normal Mood - Skin Skin Exam: Dry, Intact, Normal Color, Warm Discharge Plan - Discharge Medications Prescriptions: Albuterol Sulfate [Proventil Hfa] 0.09 mg IH Q6H #1 ml amLODIPine [Norvasc] 10 mg PO DAILY #30 tab Azithromycin [Zithromax] 500 mg PO DAILY #3 tab Fluticasone/Salmeterol 250/50 [Advair Diskus 250/50] 1 puff IH Q12 #30 puff Methylprednisolone [Medrol Dose Pack (21 tabs)] See Taper PO TID #21 mg Metoprolol Tartrate [Lopressor] 12.5 mg PO BID #60 tab Tiotropium [Spiriva] 18 mcg INH RQ24 #30 cap - Follow Up Plan Condition: STABLE Disposition: HOME/ ROUTINE Instructions: Metoprolol (By mouth), Albuterol (By breathing), Azithromycin ( By mouth), Methylprednisolone (By mouth), Amlodipine (By mouth), Fluticasone/ Salmeterol (By breathing), Tiotropium (By breathing), Asthma (DC) Additional Instructions: Please follow up at the [facility] within 1 week of discharge to set up care with a primary care provider. Please resume all home medications and take new medrol dose pack and Azithromycin as prescribed. Referrals: [facility] [Outside] <Chiki Gilbert - Last Filed: 09/07/17 16:34> Provider - Provider Date of Admission: 09/04/17 14:27 Attending physician: Armani Parsons, DO Hospital Course - Lab Results Lab Results: Most Recent Lab Values WBC 16.8 K/uL (4.8-10.8) H D 09/04/17 08:13 RBC 4.34 Mil/uL (4.40-5.90) L 09/04/17 08:13 Hgb 13.4 g/dL (12.0-18.0) 09/04/17 08:13 Hct 39.4 % (35.0-51.0) 09/04/17 08:13 MCV 91.0 fL (80.0-94.0) 09/04/17 08:13 MCH 30.9 pg (27.0-31.0) 09/04/17 08:13 MCHC 34.0 g/dL (33.0-37.0) 09/04/17 08:13 RDW 13.1 % (11.5-14.5) 09/04/17 08:13 Plt Count 247 K/uL (130-400) 09/04/17 08:13 MPV 8.7 fL (7.2-11.7) 09/04/17 08:13 Neut % (Auto) 93.6 % (50.0-75.0) H 09/04/17 08:13 Lymph % (Auto) 4.2 % (20.0-40.0) L 09/04/17 08:13 Hettinger % (Auto) 2.1 % (0.0-10.0) 09/04/17 08:13 Eos % (Auto) 0.0 % (0.0-4.0) 09/04/17 08:13 Baso % (Auto) 0.1 % (0.0-2.0) 09/04/17 08:13 Neut # (Auto) 15.7 K/uL (1.8-7.0) H 09/04/17 08:13 Lymph # (Auto) 0.7 K/uL (1.0-4.3) L 09/04/17 08:13 Hettinger # (Auto) 0.3 K/uL (0.0-0.8) 09/04/17 08:13 Eos # (Auto) 0.0 K/uL (0.0-0.7) 09/04/17 08:13 Baso # (Auto) 0.0 K/uL (0.0-0.2) 09/04/17 08:13 Neutrophils % (Manual) 93 % (50-75) H 09/04/17 08:13 Band Neutrophils % 2 % (0-2) 09/04/17 08:13 Lymphocytes % (Manual) 4 % (20-40) L 09/04/17 08:13 Monocytes % (Manual) 1 % (0-10) 09/04/17 08:13 Toxic Granulation Present 09/04/17 08:13 Platelet Estimate Normal (NORMAL) 09/04/17 08:13 Large Platelets Present 09/04/17 08:13 Anisocytosis (manual) Slight 09/04/17 08:13 Sodium 138 mmol/L (132-148) 09/04/17 08:13 Potassium 3.9 mmol/L (3.6-5.2) 09/04/17 08:13 Chloride 99 mmol/L (98-107) 09/04/17 08:13 Carbon Dioxide 25 mmol/L (22-30) 09/04/17 08:13 Anion Gap 18 (10-20) 09/04/17 08:13 BUN 27 mg/dL (9-20) H 09/04/17 08:13 Creatinine 0.8 mg/dL (0.8-1.5) 09/04/17 08:13 Est GFR ( Amer) > 60 09/04/17 08:13 Est GFR (Non-Af Amer) > 60 09/04/17 08:13 Random Glucose 141 mg/dL (75-110) H 09/04/17 08:13 Calcium 8.8 mg/dl (8.6-10.4) 09/04/17 08:13 Phosphorus 3.3 mg/dL (2.5-4.5) 09/03/17 06:37 Magnesium 1.7 mg/dL (1.6-2.3) 09/03/17 06:37 Total Bilirubin 0.4 mg/dL (0.2-1.3) 09/04/17 08:13 AST 24 U/L (17-59) 09/04/17 08:13 ALT 28 U/L (21-72) 09/04/17 08:13 Alkaline Phosphatase 52 U/L (38-126) 09/04/17 08:13 Total Creatine Kinase 129 U/L (55-170) 09/02/17 11:29 CK-MB (Mass) 1.62 ng/mL (0.0-3.38) 09/02/17 11:29 Troponin I < 0.0120 ng/mL (0.00-0.120) 09/02/17 11:29 NT-Pro-B Natriuret Pep 104 pg/mL (0-900) 09/02/17 11:29 Total Protein 6.8 g/dL (6.3-8.3) 09/04/17 08:13 Albumin 3.9 g/dL (3.5-5.0) 09/04/17 08:13 Globulin 2.9 gm/dL (2.2-3.9) 09/04/17 08:13 Albumin/Globulin Ratio 1.3 (1.0-2.1) 09/04/17 08:13 Influenza Typ A,B (EIA) Negative for flu a/b (NEGATIVE) 09/02/17 18:55 Attending/Attestation - Attestation I have personally seen and examined this patient.: Yes I have fully participated in the care of the patient.: Yes I have reviewed all pertinent clinical information, including history, physical exam and plan: Yes Notes (Text): Seen and exmained patient is comfortable sitting on the bed. No SOB. patient is stable for discharge home on medication d/w the resident and I agree with the discharge plan of the resident Discharge diagnosis- Acute exacerbation of Asthma 09/07/17 16:33
== END 2017-09-06 17:15 | disposition home or self-care (01) | DRG 97 ==
LOC: C.ER 09:44 → C.9E 14:31 → C.3T 18:18 → OBSVTOIN 09-04 14:27
PROVIDERS: ADMIT Hospitalist; ATTEND Hospitalist
DX: J45.902 Unspecified asthma with status asthmaticus (principal); I10 Essential (primary) hypertension; K21.9 Gastro-esophageal reflux disease without esophagitis; Z87.891 Personal history of nicotine dependence; Z83.3 Family history of diabetes mellitus; Z91.19 Patient's noncompliance with other medical treatment and regimen

== ENCOUNTER 2017-11-30 08:14 | Inpatient (IN) | payer OTHER ==
[2017-11-30] MEDS ORDERED: Albuterol-Ipratrop 3 mg / 0.5 (3 ml) UD INH STA (08:30)
[2017-11-30] MEDS ORDERED: Albuterol-Ipratrop 3 mg / 0.5 (3 ml) UD ONE ×2 (08:42→09:30)
[2017-11-30] MEDS ORDERED: Sodium Chloride 0.9% 1,000 ML IV ONE (08:48)
[2017-11-30] MEDS ORDERED: Magnesium Sulfate 1 gm in D5W 1 GM/100 ML BAG IV ONE ×2 (08:49→09:51)
[2017-11-30] MEDS ORDERED: Albuterol-Ipratrop 3 mg / 0.5 (3 ml) UD IH STA (08:50)
--- NOTE | 2017-11-30 08:51 | C.PDOC ---
History Of Present Illness 65-year-old male, PMHx includes COPD, presents to the emergency department for evaluation of shortness of breath, dyspnea, wheezing that gradually developed over the past week. Patient has had cold symptoms that include cough with clear sputum for past week that provoke asthma exacerbation. Denies fever, chills, headache, dizziness, vertigo, drooling, dysphagia, CP, abd. pain, nausea/ vomiting, diarrhea, denies any other active complaints. AT the time of evaluation, pt appears labored breathing, although speak full sentences. Time Seen by Provider: 11/30/17 08:34 Chief Complaint (Nursing): Shortness Of Breath History Per: Patient Past Medical History Reviewed: Historical Data, Nursing Documentation, Vital Signs Vital Signs: Last Vital Signs Temp 98.2 F 11/30/17 11:35 Pulse 90 11/30/17 11:35 Resp 21 11/30/17 11:36 BP 157/86 H 11/30/17 10:37 Pulse Ox 98 11/30/17 11:36 - Medical History PMH: Asthma Family History: States: No Known Family Hx - Social History Hx Alcohol Use: No Hx Substance Use: No - Immunization History Hx Influenza Vaccination: No (CANT REMEMBER) Review Of Systems Except As Marked, All Systems Reviewed And Found Negative. Constitutional: Negative for: Fever, Chills ENT: Negative for: Throat Pain Cardiovascular: Negative for: Chest Pain, Palpitations Respiratory: Positive for: Shortness of Breath, Sputum, Wheezing Gastrointestinal: Negative for: Vomiting Musculoskeletal: Negative for: Back Pain Neurological: Negative for: Weakness, Numbness, Altered Mental Status, Headache , Dizziness Physical Exam - Physical Exam Appears: Well, Non-toxic, No Acute Distress Skin: Normal Color, Warm, Dry, No Rash Head: Normacephalic Eye(s): bilateral: PERRL Ear(s): Bilateral: Normal Nose: Flaring, Discharge (clear rhirnorrhea B/L), No Deformity, No Tenderness Oral Mucosa: Moist, No Drooling Throat: No Erythema, No Drooling Neck: Trachea Midline, Supple Cardiovascular: Rhythm Regular, No Murmur, No JVD Respiratory: No Decreased Breath Sounds, Accessory Muscle Use, No Rales, No Rhonchi, No Stridor, Wheezing (diffuse expiratory wheezing B/L) Gastrointestinal/Abdominal: Soft, No Tenderness, No Distention, No Guarding Back: No CVA Tenderness Extremity: Normal ROM, No Pedal Edema, No Deformity Neurological/Psych: Oriented x3, Normal Speech ED Course And Treatment - Laboratory Results Result Diagrams: 11/30/17 08:53 11/30/17 08:53 Lab Interpretation: No Acute Changes ECG: Interpreted By Me, Viewed By Me ECG Rhythm: Sinus Rhythm ECG Interpretation: Normal Interpretation Of ECG: SR@85/min, NAD, no acute T wave or ST-T changes. O2 Sat by Pulse Oximetry: 97 (RA) Pulse Ox Interpretation: Normal - Radiology CXR: Interpreted by Me, Viewed By Me, Read By Radiologist CXR Interpretation: Yes: No Acute Disease Progress Note: re-eval after ED treatment, pt hypoxic PulsEOx 90-92% RA. Still appears mild resp. distress, labored breathing. Lungs: mild imprpovemnet B/L exp wheezing, BS equal. Case discussed with Hospitalist and admission arranged. Disposition - Disposition Disposition: HOSPITALIZED Disposition Time: 11:11 Condition: FAIR Forms: [facility] (Divehi) - Clinical Impression Clinical Impression: Chr obstructive pulmonary disease w/ acute lower respiratory infxn - Scribe Statement The provider has reviewed the documentation as recorded by the Scribe (Brooke Roberts) All medical record entries made by the Scribe were at my direction and personally dictated by me. I have reviewed the chart and agree that the record accurately reflects my personal performance of the history, physical exam, medical decision making, and the department course for this patient. I have also personally directed, reviewed, and agree with the discharge instructions and disposition.
[2017-11-30] MEDS ORDERED: Sodium Chloride 0.9% 1,000 ML ONE (08:59)
[2017-11-30 09:01] LABS: BASO # 0.1 K/uL (0.0-0.2); BASO % 1.4 % (0.0-2.0); EOS # 1.3 K/uL (0.0-0.7); EOS % 15.4 % (0.0-4.0); HEMOGLOBIN 14.9 g/dL (12.0-18.0); LYMPH # 1.5 K/uL (1.0-4.3); LYMPH % 18.1 % (20.0-40.0); MEAN CORPUSCULAR HEMOGLOBIN 30.9 pg (27.0-31.0); MEAN CORPUSCULAR HGB CONC 33.9 g/dL (33.0-37.0); MEAN PLATELET VOLUME 8.5 fL (7.2-11.7); MONO # 0.7 K/uL (0.0-0.8); NEUT # 4.7 K/uL (1.8-7.0); NEUT % 56.1 % (50.0-75.0); NRBC % 0.1 % (0.0-2.0); RBC 4.84 Mil/uL (4.40-5.90); RED CELL DISTRIBUTION WIDTH 13.6 % (11.5-14.5); WHITE BLOOD COUNT 8.3 K/uL (4.8-10.8)
[2017-11-30 09:13] LABS: ALB/GLOB RATIO 1.4 (1.0-2.1); ALBUMIN 4.3 g/dL (3.5-5.0); ALT/SGPT 20 U/L (21-72); AST/SGOT 34 U/L (17-59); BLOOD UREA NITROGEN 25 mg/dL (9-20); GFR AFRICAN-AMERICAN > 60; GFR NON-AFRICAN AMERICAN > 60
[2017-11-30 09:23] LABS: B-TYPE NATRIURETIC PEPTIDE 79.1 pg/mL (0-900)
[2017-11-30] MEDS ORDERED: Azithromycin 500 MG in Sodium Chloride 0.9% 250 ML IVPB STA (09:28)
--- NOTE | 2017-11-30 10:58 | RAD ---
HISTORY: SOB COMPARISON: No prior. TECHNIQUE: Chest PA and lateral FINDINGS: LUNGS: No active pulmonary disease. PLEURA: No significant pleural effusion identified. No pneumothorax apparent. CARDIOVASCULAR: Normal. OSSEOUS STRUCTURES: No significant abnormalities. VISUALIZED UPPER ABDOMEN: Normal. OTHER FINDINGS: None. IMPRESSION: No active disease.
[2017-11-30] MEDS ORDERED: cefTRIAXone IV 1 gm in Dextros 50 ML IVPB ONE (11:40)
[2017-11-30 12:07] LABS: ABG ALLEN TEST PO; ARTERIAL BLOOD GAS HCO3 24.9 mmol/L (21-28); ARTERIAL BLOOD GAS HEMOGLOBIN 13.9 g/dL (11.7-17.4); ARTERIAL BLOOD GAS O2 SAT 98.5 % (95-98); ARTERIAL BLOOD GAS PCO2 40 mm/Hg (35-45); ARTERIAL BLOOD GAS PO2 95 mm/Hg (80-100)
[2017-11-30 12:41] LABS: BARBITURATES, UR NEGATIVE (NEGATIVE); BENZODIAZEPINES, UR NEGATIVE (NEGATIVE); OPIATES, UR NEGATIVE (NEGATIVE); PHENCYCLIDINE, UR NEGATIVE (NEGATIVE)
--- NOTE | 2017-11-30 13:15 | CP.PCM.HP ---
Addendum entered and electronically signed by Kacie Narayan DO 11/30/17 15:35: PMD: none. Patient states he only goes to Emergency room Original Note: <Kacie Narayan - Last Filed: 11/30/17 15:29> History of Present Illness - History of Present Illness History of Present Illness: CC: shortness of breath, coughing, wheezing HPI: 65M presents with coughing and wheezing for three weeks. Patient states that he feels that there is phlegm stuck in his throat and isn't able to come out. Patient says he uses an inhaler at home, but doesn't know the name. Patient states it's for asthma. Patient states he has a machine to help him breath but does not know the name. Patient denies recent travel. Patient denies sick contacts. Patient denies fever, chills, nausea, vomiting. Patient states he hasn 't been able to work. PMH: asthma (5 years) Surgery: Cholecystectomy Social: Patient states that he stopped smoking 17 years ago and stopped drinking around 10 years ago. Allergies: NKDA Present on Admission - Present on Admission Any Indicators Present on Admission: No History of DVT/PE: No History of Uncontrolled Diabetes: No Urinary Catheter: No Decubitus Ulcer Present: No Review of Systems - Review of Systems Systems not reviewed;Unavailable: Uncooperative All systems: reviewed and no additional remarkable complaints except - Constitutional Constitutional: absent: Chills, Fever - EENT Eyes: absent: Dry Eye, Itchy Eyes Past Patient History - Infectious Disease Hx of Infectious Diseases: None - Past Medical History & Family History Past Medical History?: Yes - Past Social History Smoking Status: Former Smoker Alcohol: Other (formerly drank) - PULMONARY Hx Asthma: Yes - PSYCHIATRIC Hx Substance Use: No - SURGICAL HISTORY Hx Surgeries: Yes Other/Comment: ? ENDOSCOPY TO LOOK AT GALLBLADDER - ANESTHESIA Hx Anesthesia: Yes Hx Anesthesia Reactions: No Meds Allergies/Adverse Reactions: Allergies Allergy/AdvReac Type Severity Reaction Status Date / Time No Known Allergies Allergy Verified 11/30/17 08:30 Physical Exam - Constitutional Appears: Non-toxic, No Acute Distress, Unkempt - Head Exam Head Exam: NORMAL INSPECTION, NORMOCEPHALIC - Eye Exam Eye Exam: EOMI, Normal appearance Pupil Exam: NORMAL ACCOMODATION, PERRL - ENT Exam ENT Exam: Mucous Membranes Moist, Normal Exam - Neck Exam Neck exam: Positive for: Full Rom, Normal Inspection. Negative for: Thyromegaly - Respiratory Exam Respiratory Exam: Clear to Auscultation Bilateral, Wheezes, NORMAL BREATHING PATTERN - Cardiovascular Exam Cardiovascular Exam: REGULAR RHYTHM, +S1, +S2. absent: Bradycardia, Tachycardia - GI/Abdominal Exam GI & Abdominal Exam: Normal Bowel Sounds, Soft - Rectal Exam Rectal Exam: NORMAL INSPECTION - Extremities Exam Extremities exam: Positive for: full ROM. Negative for: pedal edema Results - Vital Signs Recent Vital Signs: Last Vital Signs Temp 98.2 F 11/30/17 11:35 Pulse 94 H 11/30/17 12:32 Resp 18 11/30/17 12:32 BP 143/81 11/30/17 12:32 Pulse Ox 96 11/30/17 12:32 - Labs Result Diagrams: 11/30/17 08:53 11/30/17 08:53 Labs: Laboratory Results - last 24 hr 11/30/17 11/30/17 11/30/17 08:53 08:53 11:58 WBC 8.3 RBC 4.84 Hgb 14.9 Hct 44.0 MCV 91.0 MCH 30.9 MCHC 33.9 RDW 13.6 Plt Count 229 MPV 8.5 Neut % (Auto) 56.1 Lymph % (Auto) 18.1 L [place] % (Auto) 9.0 Eos % (Auto) 15.4 H Baso % (Auto) 1.4 Neut # (Auto) 4.7 Lymph # (Auto) 1.5 [place] # (Auto) 0.7 Eos # (Auto) 1.3 H Baso # (Auto) 0.1 Puncture Site Rra pCO2 40 pO2 95 HCO3 24.9 ABG pH 7.40 ABG Total CO2 26.0 ABG O2 Saturation 98.5 H ABG Base Excess 0 ABG Hemoglobin 13.9 ABG Carboxyhemoglobin 1.4 POC ABG HHb (Measured) 1.5 ABG Methemoglobin 0.8 Alejandro Test Po A-a O2 Difference 55.0 Respiratory Index 0.6 Hgb O2 Saturation 96.3 Liter Flow 2.0 FiO2 28.0 Sodium 140 Potassium 4.1 Chloride 102 Carbon Dioxide 27 Anion Gap 16 BUN 25 H Creatinine 0.9 Est GFR ( Amer) > 60 Est GFR (Non-Af Amer) > 60 Random Glucose 103 Calcium 9.0 Magnesium 1.9 Total Bilirubin 0.7 AST 34 ALT 20 L Alkaline Phosphatase 82 Troponin I 0.0170 NT-Pro-B Natriuret Pep 79.1 Total Protein 7.3 Albumin 4.3 Globulin 3.0 Albumin/Globulin Ratio 1.4 Urine Opiates Screen Urine Methadone Screen Ur Barbiturates Screen Ur Phencyclidine Scrn Ur Amphetamines Screen U Benzodiazepines Scrn U Oth Cocaine Metabols U Cannabinoids Screen Alcohol, Quantitative < 10 11/30/17 12:01 WBC RBC Hgb Hct MCV MCH MCHC RDW Plt Count MPV Neut % (Auto) Lymph % (Auto) [place] % (Auto) Eos % (Auto) Baso % (Auto) Neut # (Auto) Lymph # (Auto) [place] # (Auto) Eos # (Auto) Baso # (Auto) Puncture Site pCO2 pO2 HCO3 ABG pH ABG Total CO2 ABG O2 Saturation ABG Base Excess ABG Hemoglobin ABG Carboxyhemoglobin POC ABG HHb (Measured) ABG Methemoglobin Alejandro Test A-a O2 Difference Respiratory Index Hgb O2 Saturation Liter Flow FiO2 Sodium Potassium Chloride Carbon Dioxide Anion Gap BUN Creatinine Est GFR ( Amer) Est GFR (Non-Af Amer) Random Glucose Calcium Magnesium Total Bilirubin AST ALT Alkaline Phosphatase Troponin I NT-Pro-B Natriuret Pep Total Protein Albumin Globulin Albumin/Globulin Ratio Urine Opiates Screen Negative Urine Methadone Screen Negative Ur Barbiturates Screen Negative Ur Phencyclidine Scrn Negative Ur Amphetamines Screen Negative U Benzodiazepines Scrn Negative U Oth Cocaine Metabols Negative U Cannabinoids Screen Negative Alcohol, Quantitative Assessment & Plan - Assessment and Plan (Free Text) Assessment: Asthma exacerbation, hx of asthma f/u AM CBC f/u AM CMP f/u urine legionella, mycoplasma IgM, strep pneumoniae f/u influenza a and B CXR: negative for active disease Heparin 5000 u SC Q8H Duoneb 3c INH RQ6H Solumedrol 40mg IVP Q8H Zithromax 500mg IVPB daily Rocephin 1 gm Q24H Prophylaxis Protonix 40mg IVP Q8H SCDs when in bed Heparin 5000 u SC Q8H Diet: Heart healthy, mod carbohydrate discussed with Dr. Ofelia Narayan DO PGY1 - Date & Time Date: 11/30/17 Time: 14:59 <Chiki Gilbert - Last Filed: 11/30/17 18:35> Results - Vital Signs Recent Vital Signs: Last Vital Signs Temp 98.0 F 11/30/17 14:54 Pulse 102 H 11/30/17 14:54 Resp 18 11/30/17 14:58 BP 140/88 11/30/17 14:54 Pulse Ox 96 11/30/17 14:58 - Labs Result Diagrams: 11/30/17 08:53 11/30/17 08:53 Labs: Laboratory Results - last 24 hr 11/30/17 11/30/17 11/30/17 08:53 08:53 11:58 WBC 8.3 RBC 4.84 Hgb 14.9 Hct 44.0 MCV 91.0 MCH 30.9 MCHC 33.9 RDW 13.6 Plt Count 229 MPV 8.5 Neut % (Auto) 56.1 Lymph % (Auto) 18.1 L [place] % (Auto) 9.0 Eos % (Auto) 15.4 H Baso % (Auto) 1.4 Neut # (Auto) 4.7 Lymph # (Auto) 1.5 [place] # (Auto) 0.7 Eos # (Auto) 1.3 H Baso # (Auto) 0.1 Puncture Site Rra pCO2 40 pO2 95 HCO3 24.9 ABG pH 7.40 ABG Total CO2 26.0 ABG O2 Saturation 98.5 H ABG Base Excess 0 ABG Hemoglobin 13.9 ABG Carboxyhemoglobin 1.4 POC ABG HHb (Measured) 1.5 ABG Methemoglobin 0.8 Alejandro Test Po A-a O2 Difference 55.0 Respiratory Index 0.6 Hgb O2 Saturation 96.3 Liter Flow 2.0 FiO2 28.0 Sodium 140 Potassium 4.1 Chloride 102 Carbon Dioxide 27 Anion Gap 16 BUN 25 H Creatinine 0.9 Est GFR ( Amer) > 60 Est GFR (Non-Af Amer) > 60 Random Glucose 103 Calcium 9.0 Magnesium 1.9 Total Bilirubin 0.7 AST 34 ALT 20 L Alkaline Phosphatase 82 Troponin I 0.0170 NT-Pro-B Natriuret Pep 79.1 Total Protein 7.3 Albumin 4.3 Globulin 3.0 Albumin/Globulin Ratio 1.4 Urine Opiates Screen Urine Methadone Screen Ur Barbiturates Screen Ur Phencyclidine Scrn Ur Amphetamines Screen U Benzodiazepines Scrn U Oth Cocaine Metabols U Cannabinoids Screen Alcohol, Quantitative < 10 11/30/17 12:01 WBC RBC Hgb Hct MCV MCH MCHC RDW Plt Count MPV Neut % (Auto) Lymph % (Auto) [place] % (Auto) Eos % (Auto) Baso % (Auto) Neut # (Auto) Lymph # (Auto) [place] # (Auto) Eos # (Auto) Baso # (Auto) Puncture Site pCO2 pO2 HCO3 ABG pH ABG Total CO2 ABG O2 Saturation ABG Base Excess ABG Hemoglobin ABG Carboxyhemoglobin POC ABG HHb (Measured) ABG Methemoglobin Alejandro Test A-a O2 Difference Respiratory Index Hgb O2 Saturation Liter Flow FiO2 Sodium Potassium Chloride Carbon Dioxide Anion Gap BUN Creatinine Est GFR ( Amer) Est GFR (Non-Af Amer) Random Glucose Calcium Magnesium Total Bilirubin AST ALT Alkaline Phosphatase Troponin I NT-Pro-B Natriuret Pep Total Protein Albumin Globulin Albumin/Globulin Ratio Urine Opiates Screen Negative Urine Methadone Screen Negative Ur Barbiturates Screen Negative Ur Phencyclidine Scrn Negative Ur Amphetamines Screen Negative U Benzodiazepines Scrn Negative U Oth Cocaine Metabols Negative U Cannabinoids Screen Negative Alcohol, Quantitative Attending/Attestation - Attestation I have personally seen and examined this patient.: Yes I have fully participated in the care of the patient.: Yes I have reviewed all pertinent clinical information: Yes Notes (Text): Patient was seen and examined. Sitting on bed with mild SOB and cough. On examination has diffuse bilateral wheezing. Patient has h/o asthma. History discussed with the resident and I agree with the documentation of the resident's assessment and the plan
[2017-11-30] MEDS: Albuterol-Ipratrop 3 mg / 0.5 (3 ml) UD INH SCH ×2 (14:10→20:16)
[2017-11-30] MEDS ORDERED: Sodium Chloride 0.9% 1,000 ML IV SCH (15:00)
[2017-11-30] MEDS: MethylPREDNISolone 40 mg Vial IVP SCH ×2 (15:07→21:53)
[2017-11-30] MEDS: Pantoprazole 40 mg EC Tab PO SCH (15:08)
[2017-11-30 19:33] VITALS: RESP 20
[2017-12-01] MEDS: Albuterol-Ipratrop 3 mg / 0.5 (3 ml) UD INH SCH ×5 (02:09→19:45)
[2017-12-01] MEDS: MethylPREDNISolone 40 mg Vial IVP SCH ×3 (05:34→21:28)
--- NOTE | 2017-12-01 07:58 | CP.PCM.PN ---
<Roya Lockett EnrriqueAnnie - Last Filed: 12/01/17 10:52> Subjective - Date & Time of Evaluation Date of Evaluation: 12/01/17 Time of Evaluation: 07:00 - Subjective Subjective: Medicine Progress Note: Patient was seen and examined at bedside in the AM. Patient states he is still coughing with feels like he has phlegm but it won't come up. Patient states he used to some for 20 years about a pack and quit 10+ years ago. Patient also states he quit drinking about a year ago but he used to drink almost a liter of Bacardi per day. Patient denies shortness of breath, fever, chills, nausea, vomiting, abdominal pain, diarrhea or constipation. Objective - Vital Signs/Intake and Output Vital Signs (last 24 hours): Temp Pulse Resp BP Pulse Ox 98.1 F 109 H 20 131/73 97 12/01/17 07:46 12/01/17 07:46 12/01/17 07:46 12/01/17 07:46 12/01/17 07:46 Intake and Output: 12/01/17 12/01/17 06:59 18:59 Intake Total 1000 Balance 1000 - Medications Medications: Current Medications Acetaminophen (Tylenol 325mg Tab) 650 mg PO Q6 PRN PRN Reason: Fever >100.4 F Albuterol/Ipratropium (Duoneb 3 Mg/0.5 Mg (3 Ml) Ud) 3 ml INH RQ6 [facility] Last Admin: 12/01/17 07:36 Dose: 3 ml Heparin Sodium (Porcine) (Heparin) 5,000 units SC Q8 [facility] Last Admin: 12/01/17 05:34 Dose: 5,000 units Azithromycin 500 mg/ Sodium (Chloride) 250 mls @ 166.667 mls/hr IVPB DAILY [facility] PRN Reason: Protocol Ceftriaxone Sodium 1 gm/ (Sodium Chloride) 100 mls @ 100 mls/hr IVPB Q24H [facility] PRN Reason: Protocol Methylprednisolone (Solu-Medrol) 40 mg IVP Q8 [facility] Last Admin: 12/01/17 05:34 Dose: 40 mg Pantoprazole Sodium (Protonix Ec Tab) 40 mg PO DAILY [facility] Last Admin: 11/30/17 15:08 Dose: 40 mg Pneumococcal Polyvalent Vaccine (Pneumovax 23 Vaccine) 0.5 ml IM .ONCE ONE Stop: 12/02/17 10:01 - Labs Labs: 11/30/17 08:53 11/30/17 08:53 - Constitutional Appears: No Acute Distress - Head Exam Head Exam: ATRAUMATIC, NORMAL INSPECTION - Eye Exam Eye Exam: EOMI, Normal appearance - ENT Exam ENT Exam: Mucous Membranes Moist - Respiratory Exam Respiratory Exam: Wheezes (bilateral lungs), NORMAL BREATHING PATTERN - Cardiovascular Exam Cardiovascular Exam: Tachycardia, REGULAR RHYTHM, +S1, +S2 - GI/Abdominal Exam GI & Abdominal Exam: Firm, Normal Bowel Sounds. absent: Tenderness - Extremities Exam Extremities Exam: Normal Inspection. absent: Pedal Edema, Tenderness - Neurological Exam Neurological Exam: Alert, Awake, Oriented x3 - Psychiatric Exam Psychiatric exam: Normal Affect, Normal Mood - Skin Skin Exam: Normal Color Assessment and Plan - Assessment and Plan (Free Text) Assessment: 1.) Asthma exacerbation f/u urine legionella, mycoplasma IgM, strep pneumoniae f/u influenza a and B CXR: negative for active disease - Medications: * Duoneb 3c INH RQ4H * Solumedrol 40mg IVP Q8H * Zithromax 500mg IVPB daily * Rocephin 1 gm Q24H * Mucinex 600mg po bid 2.) History of Asthma - Discussed with patient the importance to have a primary care doctor. Also discussed that we have a clinic in the hospital the patient can follow up with as an out patient. Patient states he understands. 3.) Seasonal Allergies - Claritin 10mg po daily - Saline Nasal [place] prn - Visine OU bid prn 4. Leukocytosis - secondary to Solumedrol - 8.3 --> 12.7 - Monitor 5.) Prophylaxis - Protonix 40mg IVP Q8H - SCDs when in bed - Heparin 5000 u SC Q8H Discussed with Dr. Ofelia Lockett PGY-1 <Chiki Gilbert - Last Filed: 12/01/17 16:41> Objective - Vital Signs/Intake and Output Vital Signs (last 24 hours): Temp Pulse Resp BP Pulse Ox 98.1 F 109 H 20 131/73 97 12/01/17 07:46 12/01/17 07:46 12/01/17 07:46 12/01/17 07:46 12/01/17 07:46 Intake and Output: 12/01/17 12/01/17 06:59 18:59 Intake Total 1000 Balance 1000 - Medications Medications: Current Medications Acetaminophen (Tylenol 325mg Tab) 650 mg PO Q6 PRN PRN Reason: Fever >100.4 F Albuterol/Ipratropium (Duoneb 3 Mg/0.5 Mg (3 Ml) Ud) 3 ml INH RQ4 [facility] Last Admin: 12/01/17 15:55 Dose: 3 ml Guaifenesin (Mucinex La) 600 mg PO BID [facility] Last Admin: 12/01/17 11:10 Dose: 600 mg Heparin Sodium (Porcine) (Heparin) 5,000 units SC Q8 [facility] Last Admin: 12/01/17 13:28 Dose: 5,000 units Azithromycin 500 mg/ Sodium (Chloride) 250 mls @ 166.667 mls/hr IVPB DAILY [facility] PRN Reason: Protocol Last Admin: 12/01/17 11:11 Dose: 166.667 mls/hr Ceftriaxone Sodium 1 gm/ (Sodium Chloride) 100 mls @ 100 mls/hr IVPB Q24H [facility] PRN Reason: Protocol Last Admin: 12/01/17 11:11 Dose: 100 mls/hr Loratadine (Claritin) 10 mg PO DAILY [facility] Last Admin: 12/01/17 11:10 Dose: 10 mg Methylprednisolone (Solu-Medrol) 40 mg IVP Q8 [facility] Last Admin: 12/01/17 13:28 Dose: 40 mg Pantoprazole Sodium (Protonix Ec Tab) 40 mg PO DAILY [facility] Last Admin: 12/01/17 11:10 Dose: 40 mg Pneumococcal Polyvalent Vaccine (Pneumovax 23 Vaccine) 0.5 ml IM .ONCE ONE Stop: 12/02/17 10:01 Sodium Chloride ([place] Baby Saline 30 Ml) 0 ml WES Q4 PRN PRN Reason: Nasal congestion Tetrahydrozoline HCl/Zinc Sulfate (Visine 0.05% Opht Soln) 0.05 ml OU BID PRN PRN Reason: Allergy symptoms - Labs Labs: 12/01/17 07:43 12/01/17 07:43 Attending/Attestation - Attestation I have personally seen and examined this patient.: Yes I have fully participated in the care of the patient.: Yes I have reviewed all pertinent clinical information, including history, physical exam and plan: Yes Notes (Text): seen and examined by me. Patient has cough . Has bilateral diffuse wheezing. Breathing is better than yesterday No fever. continue solumedrol ,duoneb and antibiotics. Claritin added Patient should follow our clinic Discussed with the resident and I agree with the documentation of the resident' s assessment and the plan
[2017-12-01 08:14] LABS: BASO % 0.1 % (0.0-2.0); HEMOGLOBIN 14.7 g/dL (12.0-18.0); LYMPH # 1.5 K/uL (1.0-4.3); LYMPH % 11.5 % (20.0-40.0); MEAN CORPUSCULAR HGB CONC 33.7 g/dL (33.0-37.0); MEAN PLATELET VOLUME 9.1 fL (7.2-11.7); MONO # 0.4 K/uL (0.0-0.8); MONO % 2.8 % (0.0-10.0); NEUT # 10.9 K/uL (1.8-7.0); NEUT % 85.6 % (50.0-75.0); RBC 4.75 Mil/uL (4.40-5.90); RED CELL DISTRIBUTION WIDTH 13.9 % (11.5-14.5)
[2017-12-01 08:17] LABS: WHITE BLOOD COUNT 12.7 K/uL (4.8-10.8)
[2017-12-01 08:38] LABS: ALB/GLOB RATIO 1.4 (1.0-2.1); ALBUMIN 4.4 g/dL (3.5-5.0); ALT/SGPT 25 U/L (21-72); AST/SGOT 39 U/L (17-59); BLOOD UREA NITROGEN 25 mg/dL (9-20); CALCIUM 9.4 mg/dl (8.6-10.4); GFR AFRICAN-AMERICAN > 60; GFR NON-AFRICAN AMERICAN > 60
[2017-12-01] MEDS ORDERED: Pneumococcal 23-Valent Vaccine IM ONE (10:00)
[2017-12-01] MEDS ORDERED: Tetrahydrozoline Opht 0.05% Sol (15 ml) OU PRN (10:25)
[2017-12-01] MEDS ORDERED: Sodium Chloride Nasal 0.65% Soln (30ml) NAS PRN (10:25)
[2017-12-01] MEDS: Pantoprazole 40 mg EC Tab PO SCH (11:10)
[2017-12-01] MEDS: guaiFENesin 600 mg ER Tab PO SCH ×2 (11:10→18:11)
[2017-12-01] MEDS: Azithromycin 500 MG in Sodium Chloride 0.9% 250 ML IVPB SCH (11:11)
[2017-12-01 18:56] LABS: INFLUENZA A B NEGATIVE FOR FLU A/B (NEGATIVE); LEGIONELLA AG URINE NEGATIVE (NEGATIVE)
[2017-12-01 18:57] LABS: MYCOPLASMA PNEUMONIAE IGM NEGATIVE (NEGATIVE)
--- NOTE | 2017-12-01 19:21 | CARD ---
APPROVED REPORT EKG Measurement Heart [id number] <Conclusion> Normal sinus rhythm Normal ECG
[2017-12-01] MEDS ORDERED: Albuterol 0.083% Inhal Sol (2.5 mg/3 mL) UD INH PRN (21:36)
[2017-12-01] MEDS ORDERED: guaiFENesin 600 mg ER Tab PO PRN (21:39)
[2017-12-01] MEDS ORDERED: guaiFENesin 600 mg ER Tab PO SCH ×2 (21:40→22:00)
[2017-12-02] MEDS: MethylPREDNISolone 40 mg Vial IVP SCH ×3 (05:21→21:39)
[2017-12-02] MEDS: guaiFENesin 200 mg/10 ml Syrup UD PO PRN ×2 (05:22→09:36)
[2017-12-02] MEDS: Albuterol-Ipratrop 3 mg / 0.5 (3 ml) UD INH SCH ×4 (06:09→19:15)
--- NOTE | 2017-12-02 06:53 | CP.PCM.PN ---
<Roya Lockett - Last Filed: 12/02/17 09:35> Subjective - Date & Time of Evaluation Date of Evaluation: 12/02/17 Time of Evaluation: 07:00 - Subjective Subjective: Medicine Progress Note: Patient was seen and examined at bedside in the AM. Patient states he is still feels like he has phlegm but it won't come up. Patient states he feels like his breathing has improved since he was admitted. Patient states he has been admitted to hospitals once 2018 and 5 times in 2017. Patient denies shortness of breath, fever, chills, nausea, vomiting, abdominal pain, diarrhea or constipation. Objective - Vital Signs/Intake and Output Vital Signs (last 24 hours): Temp Pulse Resp BP Pulse Ox 98.3 F 96 H 20 151/79 H 98 12/01/17 23:14 12/01/17 23:14 12/01/17 23:14 12/01/17 23:14 12/01/17 23:14 - Medications Medications: Current Medications Acetaminophen (Tylenol 325mg Tab) 650 mg PO Q6 PRN PRN Reason: Fever >100.4 F Albuterol Sulfate (Albuterol 0.083% Inhal Tasneem (2.5 Mg/3 Ml) Ud) 3 mg INH RQ2 PRN PRN Reason: Shortness of Breath Last Admin: 12/01/17 22:24 Dose: 2.5 mg Albuterol/Ipratropium (Duoneb 3 Mg/0.5 Mg (3 Ml) Ud) 3 ml INH RQ6 [facility] Last Admin: 12/02/17 06:09 Dose: 3 ml Guaifenesin (Mucinex La) 600 mg PO BID [facility] Guaifenesin (Robitussin) 200 mg PO Q4H PRN PRN Reason: Cough and congestion Last Admin: 12/02/17 05:22 Dose: 200 mg Heparin Sodium (Porcine) (Heparin) 5,000 units SC Q8 [facility] Last Admin: 12/02/17 05:21 Dose: 5,000 units Azithromycin 500 mg/ Sodium (Chloride) 250 mls @ 166.667 mls/hr IVPB DAILY [facility] PRN Reason: Protocol Last Admin: 12/01/17 11:11 Dose: 166.667 mls/hr Ceftriaxone Sodium 1 gm/ (Sodium Chloride) 100 mls @ 100 mls/hr IVPB Q24H [facility] PRN Reason: Protocol Last Admin: 12/01/17 11:11 Dose: 100 mls/hr Loratadine (Claritin) 10 mg PO DAILY [facility] Last Admin: 12/01/17 11:10 Dose: 10 mg Methylprednisolone (Solu-Medrol) 40 mg IVP Q8 [facility] Last Admin: 12/02/17 05:21 Dose: 40 mg Pantoprazole Sodium (Protonix Ec Tab) 40 mg PO DAILY [facility] Last Admin: 12/01/17 11:10 Dose: 40 mg Pneumococcal Polyvalent Vaccine (Pneumovax 23 Vaccine) 0.5 ml IM .ONCE ONE Stop: 12/02/17 10:01 Sodium Chloride ([place] Baby Saline 30 Ml) 0 ml WES Q4 PRN PRN Reason: Nasal congestion Tetrahydrozoline HCl/Zinc Sulfate (Visine 0.05% Opht Soln) 0.05 ml OU BID PRN PRN Reason: Allergy symptoms - Labs Labs: 12/01/17 07:43 12/01/17 07:43 - Constitutional Appears: No Acute Distress - Head Exam Head Exam: ATRAUMATIC, NORMAL INSPECTION - Eye Exam Eye Exam: EOMI, Normal appearance - ENT Exam ENT Exam: Mucous Membranes Moist - Respiratory Exam Respiratory Exam: Wheezes, NORMAL BREATHING PATTERN - Cardiovascular Exam Cardiovascular Exam: Tachycardia, REGULAR RHYTHM, +S1, +S2 - GI/Abdominal Exam GI & Abdominal Exam: Soft, Normal Bowel Sounds. absent: Tenderness - Extremities Exam Extremities Exam: Normal Inspection - Neurological Exam Neurological Exam: Alert, Awake, Oriented x3 - Psychiatric Exam Psychiatric exam: Normal Affect, Normal Mood - Skin Skin Exam: Normal Color Assessment and Plan - Assessment and Plan (Free Text) Assessment: 1.) Asthma exacerbation f/u urine legionella, mycoplasma IgM, strep pneumoniae f/u influenza a and B CXR: negative for active disease - Medications: * Duoneb 3c INH RQ4H * Solumedrol 40mg IVP Q8H * Zithromax 500mg IVPB daily * Rocephin 1 gm Q24H * Mucinex 600mg po bid 2.) History of Asthma - Discussed with patient the importance to have a primary care doctor. Also discussed that we have a clinic in the hospital the patient can follow up with as an out patient. Patient states he understands. 3.) Seasonal Allergies - Claritin 10mg po daily - Saline Nasal [place] prn - Visine OU bid prn 4. Leukocytosis - secondary to Solumedrol - 8.3 --> 12.7 - Monitor 5.) Prophylaxis - Protonix 40mg IVP Q8H - SCDs when in bed - Heparin 5000 u SC Q8H Discussed with Dr. Ofelia Lockett PGY-1 <Chiki Gilbert - Last Filed: 12/02/17 15:44> Objective - Vital Signs/Intake and Output Vital Signs (last 24 hours): Temp Pulse Resp BP Pulse Ox 98 F 106 H 20 149/82 95 12/02/17 07:45 12/02/17 07:45 12/02/17 07:45 12/02/17 07:45 12/02/17 07:45 - Medications Medications: Current Medications Acetaminophen (Tylenol 325mg Tab) 650 mg PO Q6 PRN PRN Reason: Fever >100.4 F Albuterol Sulfate (Albuterol 0.083% Inhal Tasneem (2.5 Mg/3 Ml) Ud) 3 mg INH RQ2 PRN PRN Reason: Shortness of Breath Last Admin: 12/01/17 22:24 Dose: 2.5 mg Albuterol/Ipratropium (Duoneb 3 Mg/0.5 Mg (3 Ml) Ud) 3 ml INH RQ6 [facility] Last Admin: 12/02/17 14:07 Dose: 3 ml Guaifenesin (Mucinex La) 600 mg PO BID [facility] Last Admin: 12/02/17 09:36 Dose: 600 mg Guaifenesin (Robitussin) 200 mg PO Q4H PRN PRN Reason: Cough and congestion Last Admin: 12/02/17 09:36 Dose: 200 mg Heparin Sodium (Porcine) (Heparin) 5,000 units SC Q8 [facility] Last Admin: 12/02/17 05:21 Dose: 5,000 units Azithromycin 500 mg/ Sodium (Chloride) 250 mls @ 166.667 mls/hr IVPB DAILY [facility] PRN Reason: Protocol Last Admin: 12/02/17 10:21 Dose: 166.667 mls/hr Ceftriaxone Sodium 1 gm/ (Sodium Chloride) 100 mls @ 100 mls/hr IVPB Q24H [facility] PRN Reason: Protocol Last Admin: 12/02/17 10:21 Dose: 100 mls/hr Loratadine (Claritin) 10 mg PO DAILY [facility] Last Admin: 12/02/17 09:36 Dose: 10 mg Methylprednisolone (Solu-Medrol) 40 mg IVP Q8 [facility] Last Admin: 12/02/17 05:21 Dose: 40 mg Pantoprazole Sodium (Protonix Ec Tab) 40 mg PO DAILY [facility] Last Admin: 12/02/17 09:36 Dose: 40 mg Sodium Chloride ([place] Baby Saline 30 Ml) 0 ml WES Q4 PRN PRN Reason: Nasal congestion Tetrahydrozoline HCl/Zinc Sulfate (Visine 0.05% Opht Soln) 0.05 ml OU BID PRN PRN Reason: Allergy symptoms - Labs Labs: 12/02/17 08:01 12/02/17 08:01 Attending/Attestation - Attestation I have personally seen and examined this patient.: Yes I have fully participated in the care of the patient.: Yes I have reviewed all pertinent clinical information, including history, physical exam and plan: Yes Notes (Text): Patient was seen and examined by me. he has bilateral wheezing/improving On Solumedrol 40mg tid,antibiotics,claritin and duoneb Patient need to follow our medical clinic, Discharge on Advair [id number] d/w Resident I agree with the documentation of the resident's assessment and the plan.
[2017-12-02 08:12] LABS: BASO % 0.1 % (0.0-2.0); HEMOGLOBIN 14.1 g/dL (12.0-18.0); LYMPH # 0.8 K/uL (1.0-4.3); LYMPH % 5.4 % (20.0-40.0); MEAN CELL VOLUME 90.9 fL (80.0-94.0); MEAN CORPUSCULAR HGB CONC 34.1 g/dL (33.0-37.0); MEAN PLATELET VOLUME 8.7 fL (7.2-11.7); MONO # 0.4 K/uL (0.0-0.8); MONO % 2.8 % (0.0-10.0); NEUT # 12.8 K/uL (1.8-7.0); NEUT % 91.7 % (50.0-75.0); PLATELET COUNT 241 K/uL (130-400); RBC 4.56 Mil/uL (4.40-5.90); RED CELL DISTRIBUTION WIDTH 13.7 % (11.5-14.5)
[2017-12-02 08:27] LABS: ALB/GLOB RATIO 1.4 (1.0-2.1); ALBUMIN 4.2 g/dL (3.5-5.0); ALT/SGPT 27 U/L (21-72); AST/SGOT 30 U/L (17-59); BLOOD UREA NITROGEN 25 mg/dL (9-20); CALCIUM 9.2 mg/dl (8.6-10.4); GFR AFRICAN-AMERICAN > 60; GFR NON-AFRICAN AMERICAN > 60
[2017-12-02] MEDS: guaiFENesin 600 mg ER Tab PO SCH ×2 (09:36→17:31)
[2017-12-02] MEDS: Pantoprazole 40 mg EC Tab PO SCH (09:36)
[2017-12-02 09:57] LABS: BANDS 1 % (0-2); LYMPHOCYTE 3 % (20-40); MONOCYTE 2 % (0-10); NEUTROPHIL 93 % (50-75); PLATELET ESTIMATE NORMAL (NORMAL); REACTIVE LYMPHOCYTES 1 % (0-0); TOTAL CELLS COUNTED 100
[2017-12-02 09:58] LABS: OVALOCYTES SLIGHT
[2017-12-02] MEDS ORDERED: Pneumococcal 23-Valent Vaccine IM ONE (10:00)
[2017-12-02] MEDS: Azithromycin 500 MG in Sodium Chloride 0.9% 250 ML IVPB SCH (10:21)
[2017-12-03] MEDS: Albuterol-Ipratrop 3 mg / 0.5 (3 ml) UD INH SCH ×3 (02:08→14:00)
[2017-12-03] MEDS: guaiFENesin 200 mg/10 ml Syrup UD PO PRN (05:46)
[2017-12-03] MEDS: MethylPREDNISolone 40 mg Vial IVP SCH ×2 (05:46→14:30)
[2017-12-03 07:19] LABS: BASO # 0.1 K/uL (0.0-0.2); BASO % 0.4 % (0.0-2.0); HEMOGLOBIN 13.5 g/dL (12.0-18.0); LYMPH # 0.8 K/uL (1.0-4.3); LYMPH % 6.4 % (20.0-40.0); MEAN CELL VOLUME 90.7 fL (80.0-94.0); MEAN CORPUSCULAR HEMOGLOBIN 30.9 pg (27.0-31.0); MEAN CORPUSCULAR HGB CONC 34.1 g/dL (33.0-37.0); MEAN PLATELET VOLUME 8.9 fL (7.2-11.7); MONO # 0.6 K/uL (0.0-0.8); MONO % 4.5 % (0.0-10.0); NEUT # 11.6 K/uL (1.8-7.0); NEUT % 88.7 % (50.0-75.0); PLATELET COUNT 216 K/uL (130-400); RBC 4.35 Mil/uL (4.40-5.90); RED CELL DISTRIBUTION WIDTH 13.7 % (11.5-14.5); WHITE BLOOD COUNT 13.1 K/uL (4.8-10.8)
[2017-12-03 07:40] LABS: ALB/GLOB RATIO 1.5 (1.0-2.1); ALBUMIN 3.9 g/dL (3.5-5.0); ALT/SGPT 22 U/L (21-72); AST/SGOT 29 U/L (17-59); BLOOD UREA NITROGEN 23 mg/dL (9-20); CALCIUM 8.9 mg/dl (8.6-10.4); GFR AFRICAN-AMERICAN > 60; GFR NON-AFRICAN AMERICAN > 60
[2017-12-03 09:07] LABS: LYMPHOCYTE 9 % (20-40); MONOCYTE 4 % (0-10); NEUTROPHIL 87 % (50-75); PLATELET ESTIMATE NORMAL (NORMAL); TOTAL CELLS COUNTED 100
[2017-12-03] MEDS: Pantoprazole 40 mg EC Tab PO SCH (11:16)
[2017-12-03] MEDS: Azithromycin 500 MG in Sodium Chloride 0.9% 250 ML IVPB SCH (11:17)
[2017-12-03] MEDS: guaiFENesin 600 mg ER Tab PO SCH (11:26)
--- NOTE | 2017-12-03 14:21 | CP.PCM.DIS ---
Provider - Provider Date of Admission: 11/30/17 12:26 Attending physician: Chiki Gilbert MD Time Spent in preparation of Discharge (in minutes): 40 Hospital Course - Lab Results Lab Results: Micro Results 11/30/17 08:30 Blood Blood Culture - Preliminary NO GROWTH AFTER 48 HOURS 11/30/17 11:40 Blood Blood Culture - Preliminary NO GROWTH AFTER 48 HOURS Most Recent Lab Values WBC 13.1 K/uL (4.8-10.8) H 12/03/17 07:08 RBC 4.35 Mil/uL (4.40-5.90) L 12/03/17 07:08 Hgb 13.5 g/dL (12.0-18.0) 12/03/17 07:08 Hct 39.5 % (35.0-51.0) 12/03/17 07:08 MCV 90.7 fL (80.0-94.0) 12/03/17 07:08 MCH 30.9 pg (27.0-31.0) 12/03/17 07:08 MCHC 34.1 g/dL (33.0-37.0) 12/03/17 07:08 RDW 13.7 % (11.5-14.5) 12/03/17 07:08 Plt Count 216 K/uL (130-400) 12/03/17 07:08 MPV 8.9 fL (7.2-11.7) 12/03/17 07:08 Neut % (Auto) 88.7 % (50.0-75.0) H 12/03/17 07:08 Lymph % (Auto) 6.4 % (20.0-40.0) L 12/03/17 07:08 [place] % (Auto) 4.5 % (0.0-10.0) 12/03/17 07:08 Eos % (Auto) 0.0 % (0.0-4.0) 12/03/17 07:08 Baso % (Auto) 0.4 % (0.0-2.0) 12/03/17 07:08 Neut # (Auto) 11.6 K/uL (1.8-7.0) H 12/03/17 07:08 Lymph # (Auto) 0.8 K/uL (1.0-4.3) L 12/03/17 07:08 [place] # (Auto) 0.6 K/uL (0.0-0.8) 12/03/17 07:08 Eos # (Auto) 0.0 K/uL (0.0-0.7) 12/03/17 07:08 Baso # (Auto) 0.1 K/uL (0.0-0.2) 12/03/17 07:08 Neutrophils % (Manual) 87 % (50-75) H 12/03/17 07:08 Band Neutrophils % 1 % (0-2) 12/02/17 08:01 Lymphocytes % (Manual) 9 % (20-40) L 12/03/17 07:08 Reactive Lymphs % 1 % (0-0) H 12/02/17 08:01 Monocytes % (Manual) 4 % (0-10) 12/03/17 07:08 Platelet Estimate Normal (NORMAL) 12/03/17 07:08 RBC Morphology Normal 12/03/17 07:08 Ovalocytes Slight 12/02/17 08:01 Puncture Site Rra 11/30/17 11:58 pCO2 40 mm/Hg (35-45) 11/30/17 11:58 pO2 95 mm/Hg (80-100) 11/30/17 11:58 HCO3 24.9 mmol/L (21-28) 11/30/17 11:58 ABG pH 7.40 (7.35-7.45) 11/30/17 11:58 ABG Total CO2 26.0 mmol/L (22-28) 11/30/17 11:58 ABG O2 Saturation 98.5 % (95-98) H 11/30/17 11:58 ABG Base Excess 0 mmol/L (-2.0-3.0) 11/30/17 11:58 ABG Hemoglobin 13.9 g/dL (11.7-17.4) 11/30/17 11:58 ABG Carboxyhemoglobin 1.4 % (0.5-1.5) 11/30/17 11:58 POC ABG HHb (Measured) 1.5 % (0.0-5.0) 11/30/17 11:58 ABG Methemoglobin 0.8 % (0.0-3.0) 11/30/17 11:58 Alejandro Test Po 11/30/17 11:58 A-a O2 Difference 55.0 mm/Hg 11/30/17 11:58 Respiratory Index 0.6 11/30/17 11:58 Hgb O2 Saturation 96.3 % (95.0-98.0) 11/30/17 11:58 Liter Flow 2.0 11/30/17 11:58 FiO2 28.0 % 11/30/17 11:58 Sodium 142 mmol/L (132-148) 12/03/17 07:08 Potassium 4.3 mmol/L (3.6-5.2) 12/03/17 07:08 Chloride 102 mmol/L (98-107) 12/03/17 07:08 Carbon Dioxide 28 mmol/L (22-30) 12/03/17 07:08 Anion Gap 16 (10-20) 12/03/17 07:08 BUN 23 mg/dL (9-20) H 12/03/17 07:08 Creatinine 1.0 mg/dL (0.8-1.5) 12/03/17 07:08 Est GFR ( Amer) > 60 12/03/17 07:08 Est GFR (Non-Af Amer) > 60 12/03/17 07:08 Random Glucose 117 mg/dL (75-110) H 12/03/17 07:08 Calcium 8.9 mg/dl (8.6-10.4) 12/03/17 07:08 Phosphorus 3.5 mg/dL (2.5-4.5) 12/03/17 07:08 Magnesium 2.2 mg/dL (1.6-2.3) 12/03/17 07:08 Total Bilirubin 0.6 mg/dL (0.2-1.3) 12/03/17 07:08 AST 29 U/L (17-59) 12/03/17 07:08 ALT 22 U/L (21-72) 12/03/17 07:08 Alkaline Phosphatase 63 U/L (38-126) 12/03/17 07:08 Troponin I 0.0170 ng/mL (0.00-0.120) 11/30/17 08:53 NT-Pro-B Natriuret Pep 79.1 pg/mL (0-900) 11/30/17 08:53 Total Protein 6.5 g/dL (6.3-8.3) 12/03/17 07:08 Albumin 3.9 g/dL (3.5-5.0) 12/03/17 07:08 Globulin 2.6 gm/dL (2.2-3.9) 12/03/17 07:08 Albumin/Globulin Ratio 1.5 (1.0-2.1) 12/03/17 07:08 Urine Opiates Screen Negative (NEGATIVE) 11/30/17 12:01 Urine Methadone Screen Negative (NEGATIVE) 11/30/17 12:01 Ur Barbiturates Screen Negative (NEGATIVE) 11/30/17 12:01 Ur Phencyclidine Scrn Negative (NEGATIVE) 11/30/17 12:01 Ur Amphetamines Screen Negative (NEGATIVE) 11/30/17 12:01 U Benzodiazepines Scrn Negative (NEGATIVE) 11/30/17 12:01 U Oth Cocaine Metabols Negative (NEGATIVE) 11/30/17 12:01 U Cannabinoids Screen Negative (NEGATIVE) 11/30/17 12:01 Alcohol, Quantitative < 10 mg/dl (0-10) 11/30/17 08:53 Influenza Typ A,B (EIA) Negative for flu a/b (NEGATIVE) 12/01/17 18:37 Ur L.pneumophila Ag Negative (NEGATIVE) 12/01/17 18:37 Mycoplasma pneumon IgM Negative (NEGATIVE) 12/01/17 18:37 - Hospital Course Hospital Course: HPI: 65M presents with coughing and wheezing for three weeks. Patient states that he feels that there is phlegm stuck in his throat and isn't able to come out. Patient says he uses an inhaler at home, but doesn't know the name. Patient states it's for asthma. patient states he has a machine to help him breathe but does not know the name. Patient denies recent travel. Patient denies sick contacts. Patient denies fever, chills, nausea, vomiting. Patient states he hasn 't been able to work. PMD: none. Patient states he only goes to the Emergency room PMH: asthma (5 years) Surgery: Cholecystectomy Social: Patient states that he stopped smoking 17 years ago and stopped drinking around 10 years ago. Allergies: NKDA Hospital course: During this admission, patient was diagnosed with asthma exacerbation, history of asthma, seasonal allergies, and leukocytosis. Asthma exacerbation was treated with Duoneb 3cc INH RQ4H, Solumedrol 40mg IVP Q8H, Zithromax 500mg IVPB daily, Rocephin 1gm Q24H, Mucinex 600mg PO BID with improvement. Initial chest x -ray was negative for active disease. Lab panels negative for influenza type A/ B , urine Legionella pneumophila , Mycoplasma pneumoniae . Seasonal allergies were treated with Claritin 10mg PO daily, saline nasal spray PRN, Visine OU BID PRN with improvement. Leukocytosis found on initial labs likely secondary to Solumedrol, improved and stabilized on subsequent labs. During hospitalization patient's blood pressure was found to be elevated. Patient was started on Lisinopril 5mg daily. ECG (11/30/17): Normal sinus rhythm. Imaging: Chest x-ray (11/30/17): No active disease. Patient is stable for discharge. Please start new medications: 1.) Azithromycin 250mg one tab daily for 5 days 2.) Medrol dose pack please follow instructions 3.) Lisinopril 5mg daily 4.) Advair Diskus 1 puff twice a day 5.) ProAir Hfa 1 puff if needed for shortness of breath 6.) Nebulizer as needed for shortness of breath [facility]. [address] [place] [address] Please call to make an appointment: [phone] Please return to the emergency room if symptoms return or worsen. This is summary of the patient's hospitalization, please review full EMR for further details. Discharge Exam - Head Exam Head Exam: ATRAUMATIC, NORMAL INSPECTION - Eye Exam Eye Exam: EOMI, Normal appearance - ENT Exam ENT Exam: Mucous Membranes Moist - Respiratory Exam Respiratory Exam: Wheezes (mild left lung), NORMAL BREATHING PATTERN - Cardiovascular Exam Cardiovascular Exam: REGULAR RHYTHM, +S1, +S2 - GI/Abdominal Exam GI & Abdominal Exam: Normal Bowel Sounds, Soft. absent: Tenderness - Extremities Exam Extremities exam: normal inspection - Neurological Exam Neurological exam: Alert, Oriented x3 - Psychiatric Exam Psychiatric exam: Normal Affect, Normal Mood - Skin Skin Exam: Normal Color Discharge Plan - Discharge Medications Prescriptions: Albuterol Sulfate [Proair Hfa] 0.09 mg IH PRN PRN #1 inh PRN Reason: Shortness Of Breath Azithromycin 250 mg PO DAILY #5 tablet Fluticasone/Salmeterol 250/50 [Advair Diskus] 1 puff IH Q12 #1 puff Lisinopril [Zestril] 5 mg PO DAILY #30 tab Methylprednisolone [Medrol Dose Pack (21 tabs)] 4 mg PO DAILY #21 mg Nebulizer [Aeroeclipse II] 1 each MC PRN PRN #1 each PRN Reason: Shortness Of Breath - Follow Up Plan Condition: FAIR Disposition: HOME/ ROUTINE Instructions: Exacerbation of COPD (DC) Referrals: Jenae Goldsmith MD [Staff Provider] -
[2017-12-03 16:44] VITALS: BP 173/98; PULSE 92; TEMP 98.2; O2SAT 97
== END 2017-12-03 17:45 | disposition home or self-care (01) | DRG 96 ==
LOC: C.ER 08:14 → MERGE 12:26 → C.9E 12:26 → EDBD 12:26 → C.3T 13:09
PROVIDERS: ADMIT Internal Medicine; ATTEND Internal Medicine
DX: J45.901 Unspecified asthma with (acute) exacerbation (principal); J44.9 Chronic obstructive pulmonary disease, unspecified; D72.829 Elevated white blood cell count, unspecified; Z87.891 Personal history of nicotine dependence

== ENCOUNTER 2018-04-19 09:28 | Inpatient (IN) | payer OTHER ==
--- NOTE | 2018-04-19 10:26 | C.PDOC ---
History Of Present Illness <Bridgette Trimble - Last Filed: 04/19/18 14:26> <Jonas Isabel - Last Filed: 04/19/18 17:40> 62 y/o male with history of HTN and Asthma presents to ED with c/o cough and sob worsen for "few days". Patient states he ran out of nebulizer medication and has used inhaler with no improvement. Patient is non compliant with HTN medication and denies chest pain, fever, chills or any other complaints at this time. (Bridgette Trimble) 62 y/o male with history of HTN and Asthma presents to ED with c/o cough and sob worsen for "few days". Patient states he ran out of nebulizer medication and has used inhaler with no improvement. Patient is non compliant with HTN medication and denies chest pain, fever, chills or any other complaints at this time. (Jonas Isabel) History Per: Patient History/Exam Limitations: no limitations Onset/Duration Of Symptoms: Days Current Symptoms Are (Timing): Still Present Initiating Event: Upper Respiratory Illness, Out Of Medications <Bridgette Trimble - Last Filed: 04/19/18 14:26> <Jonas Isabel - Last Filed: 04/19/18 17:40> Time Seen by Provider: 04/19/18 10:08 Chief Complaint (Nursing): Shortness Of Breath Past Medical History Reviewed: Historical Data, Nursing Documentation, Vital Signs - Medical History PMH: Asthma, COPD (ASTHMA), Gastritis, HTN Surgical History: Endoscopy Family History: States: No Known Family Hx - Social History Hx Tobacco Use: No Hx Alcohol Use: No Hx Substance Use: No - Immunization History Hx Tetanus Toxoid Vaccination: No Hx Influenza Vaccination: No Hx Pneumococcal Vaccination: No <Bridgette Trimble - Last Filed: 04/19/18 14:26> Vital Signs: Last Vital Signs Temp 97.9 F 04/19/18 16:30 Pulse 82 04/19/18 16:30 Resp 20 04/19/18 16:30 BP 155/84 H 04/19/18 16:30 Pulse Ox 96 04/19/18 16:30 - [facility] Procedures EXCISION OF SMALL INTESTINE, ENDO, DIAGN (06/17/16) Review Of Systems Constitutional: Negative for: Fever, Chills Cardiovascular: Negative for: Chest Pain Respiratory: Positive for: Cough, Shortness of Breath, Wheezing Gastrointestinal: Negative for: Nausea, Vomiting, Abdominal Pain <Bridgette Trimble - Last Filed: 04/19/18 14:26> Physical Exam - Physical Exam Appears: Non-toxic, No Acute Distress, Other (persistent coughing) Skin: Warm, Dry, No Rash Head: Atraumatic, Normacephalic Eye(s): bilateral: Normal Inspection Oral Mucosa: Moist Chest: Symmetrical Cardiovascular: Rhythm Regular Respiratory: No Accessory Muscle Use, No Rales, No Rhonchi, Wheezing (expiratory bilaterally) Gastrointestinal/Abdominal: Distention, No Guarding, No Rebound, Hernia (inguinal) Back: No CVA Tenderness Neurological/Psych: Oriented x3, Normal Speech, Normal Cognition <Bridgette Trimble - Last Filed: 04/19/18 14:26> ED Course And Treatment - Laboratory Results Result Diagrams: 04/19/18 12:45 04/19/18 12:45 ECG: Interpreted By Me, Viewed By Me ECG Rhythm: Sinus Rhythm Rate From EC (BPM) O2 Sat by Pulse Oximetry: 98 (RA) Pulse Ox Interpretation: Normal - Other Rad Obstructive series X-Ray: Viewed By Me, Read By Radiologist Interpretation: PROCEDURE: Radiographs of the chest and abdomen (obstructive series). HISTORY: Abd Pain. COMPARISON: No prior. TECHNIQUE: AP radiograph of the chest, with upright and supine radiographs of the abdomen. FINDINGS: CHEST: Lungs: Clear. Cardiovascular: No radiographic findings to suggest acute or significant cardiovascular disease. Pleura: No pleural fluid. No pneumothorax. Other findings: None. ABDOMEN AND PELVIS: Bowel: Unremarkable bowel gas pattern. No evidence of mechanical obstruction. Free air: None. Bones: Unremarkable. Other findings: None. IMPRESSION: Unremarkable radiog raphs of chest and abdomen. No evidence of mechanical bowel obstruction. Progress Note: CXR, EKG, Blood work, x3 neb treatments. Discussed with patient plan of admission for asthma exacerbation <Bridgette Trimble - Last Filed: 04/19/18 14:26> - Laboratory Results Result Diagrams: 04/19/18 12:45 04/19/18 12:45 <Jonas Isabel - Last Filed: 04/19/18 17:40> Disposition <Bridgette Trimble - Last Filed: 04/19/18 14:26> - Disposition Disposition Time: 16:00 <Jonas Isabel - Last Filed: 04/19/18 17:40> - Disposition Disposition: HOSPITALIZED Condition: FAIR - Clinical Impression Clinical Impression: Asthma with status asthmaticus - PA / DIRECTOR OF DIETARY / Resident Statement MD/DO has reviewed & agrees with the documentation as recorded. - Scribe Statement The provider has reviewed the documentation as recorded by the Scribe <Bridgette Trimble - Last Filed: 04/19/18 14:26> <Jonas Isabel - Last Filed: 04/19/18 17:40> - Scribe Statement Wilian Adorno All medical record entries made by the Scribe were at my direction and personally dictated by me. I have reviewed the chart and agree that the record accurately reflects my personal performance of the history, physical exam, medical decision making, and the department course for this patient. I have also personally directed, reviewed, and agree with the discharge instructions and disposition. (Bridgette Trimble) Wilian Adorno All medical record entries made by the Scribe were at my direction and personally dictated by me. I have reviewed the chart and agree that the record accurately reflects my personal performance of the history, physical exam, medical decision making, and the department course for this patient. I have also personally directed, reviewed, and agree with the discharge instructions and disposition. (Jonas Isabel)
[2018-04-19] MEDS ORDERED: Albuterol-Ipratrop 3 mg / 0.5 (3 ml) UD ONE ×2 (10:32→13:57)
[2018-04-19] MEDS ORDERED: Albuterol-Ipratrop 3 mg / 0.5 (3 ml) UD INH STA ×2 (11:46→13:40)
[2018-04-19] MEDS ORDERED: Magnesium Sulfate 1 gm in D5W 1 GM/100 ML BAG IV ONE (12:26)
[2018-04-19] MEDS ORDERED: Magnesium Sulfate 1 gm in D5W 1 GM/100 ML BAG IVPB ONE (12:37)
[2018-04-19 12:49] LABS: BASO % 0.7 % (0.0-2.0); EOS # 0.5 K/uL (0.0-0.7); EOS % 8.6 % (0.0-4.0); LYMPH # 1.3 K/uL (1.0-4.3); LYMPH % 20.1 % (20.0-40.0); MEAN CELL VOLUME 91.4 fL (80.0-94.0); MEAN CORPUSCULAR HEMOGLOBIN 31.2 pg (27.0-31.0); MEAN CORPUSCULAR HGB CONC 34.1 g/dL (33.0-37.0); MEAN PLATELET VOLUME 9.7 fL (7.2-11.7); MONO # 0.6 K/uL (0.0-0.8); MONO % 9.6 % (0.0-10.0); NEUT # 3.9 K/uL (1.8-7.0); NRBC % 0.1 % (0.0-2.0); RBC 4.82 Mil/uL (4.40-5.90); RED CELL DISTRIBUTION WIDTH 13.5 % (11.5-14.5); WHITE BLOOD COUNT 6.4 K/uL (4.8-10.8)
[2018-04-19 13:03] LABS: ALB/GLOB RATIO 1.6 (1.0-2.1); ALBUMIN 4.5 g/dL (3.5-5.0); ALT/SGPT 32 U/L (21-72); AST/SGOT 32 U/L (17-59); BLOOD UREA NITROGEN 21 mg/dL (9-20); CALCIUM 9.7 mg/dl (8.6-10.4); GFR NON-AFRICAN AMERICAN > 60
[2018-04-19 13:13] LABS: B-TYPE NATRIURETIC PEPTIDE 105 pg/mL (0-900)
[2018-04-19] MEDS ORDERED: Albuterol-Ipratrop 3 mg / 0.5 (3 ml) UD IH STA (13:41)
--- NOTE | 2018-04-19 14:17 | RAD ---
Date of service: 04/19/2018 PROCEDURE: Radiographs of the chest and abdomen (obstructive series) HISTORY: Abd Pain COMPARISON: No prior. TECHNIQUE: AP radiograph of the chest, with upright and supine radiographs of the abdomen. FINDINGS: CHEST: Lungs: Clear. Cardiovascular: No radiographic findings to suggest acute or significant cardiovascular disease. Pleura: No pleural fluid. No pneumothorax. Other findings: None. ABDOMEN AND PELVIS: Bowel: Unremarkable bowel gas pattern. No evidence of mechanical obstruction. Free air: None. Bones: Unremarkable. Other findings: None. IMPRESSION: Unremarkable radiographs of chest and abdomen. No evidence of mechanical bowel obstruction.
[2018-04-19 14:37] LABS: URINE BILIRUBIN NEGATIVE (NEGATIVE); URINE BLOOD 1+ (NEGATIVE); URINE CLARITY Clear (Clear); URINE COLOR Straw (YELLOW); URINE GLUCOSE (UA) NORMAL (Normal); URINE LEUKOCYTE ESTERASE NEG Leu/uL (Negative); URINE PROTEIN NEGATIVE (NEGATIVE); URINE UROBILINOGEN NORMAL mg/dL (0.2-1.0)
--- NOTE | 2018-04-19 14:42 | CP.PCM.HP ---
<Bebe Hines - Last Filed: 04/19/18 17:34> History of Present Illness - History of Present Illness History of Present Illness: 62 year old male w/ a PMHx of uncontrolled asthma, HTN, and gastritis presents to the ED with complaints of progressive SOB and cough, productive of yellow sputum, over the past 2 weeks. Patient reports he has had this severity of symptoms before requiring hospital admission as he is non compliant with his medications due to financial constraints. Patient denies and fevers or chills, sick contacts, chest pain, diarrhea or constipation. Patient also reports of increasing abdominal pain over the past 1 month. He reports left sided post prandial pain abdominal pain associated with NBNB emesis consisting of food, approximately 1x day. Patient also reports midline abdominal pain/burning from umbilicus to epigastrum, pain is worse post prandial, and pt reports is consistent w/ his previous diagnosis of gastritis. PMD: clinic PMHx: Asthma, HTN, gastritis PSHx: Endoscopy to eval gastritis Meds: unknown Allergies: NKDA FamHx: Mom , breast cancer SocHx: Former EtOH abuse, quit 2006; former tobacco use, 17pack years, denies drug use Present on Admission - Present on Admission Any Indicators Present on Admission: No Review of Systems - Constitutional Constitutional: absent: Chills - EENT Eyes: absent: Change in Vision Nose/Mouth/Throat: absent: Nasal Congestion - Cardiovascular Cardiovascular: absent: Chest Pain - Respiratory Respiratory: Cough, Dyspnea, Wheezing - Gastrointestinal Gastrointestinal: Abdominal Pain, Heartburn, Vomiting. absent: Diarrhea, Hematemesis, Hematochezia - Genitourinary Genitourinary: Difficulty Urinating - Musculoskeletal Musculoskeletal: As Per HPI Past Patient History - Infectious Disease Hx of Infectious Diseases: None - Past Medical History & Family History Past Medical History?: Yes - Past Social History Smoking Status: Former Smoker - CARDIAC Hx Hypertension: Yes - PULMONARY Hx Asthma: Yes Hx Chronic Obstructive Pulmonary Disease (COPD): Yes (ASTHMA) - NEUROLOGICAL Hx Neurological Disorder: No - HEENT Hx HEENT Problems: No - RENAL Hx Chronic Kidney Disease: No - ENDOCRINE/METABOLIC Hx Endocrine Disorders: No - HEMATOLOGICAL/ONCOLOGICAL Hx Blood Disorders: No - INTEGUMENTARY Hx Dermatological Problems: No - MUSCULOSKELETAL/RHEUMATOLOGICAL Hx Falls: Yes - GASTROINTESTINAL Hx Gastritis: Yes - GENITOURINARY/GYNECOLOGICAL Hx Genitourinary Disorders: No - PSYCHIATRIC Hx Substance Use: No - SURGICAL HISTORY Hx Surgeries: Yes - ANESTHESIA Hx Anesthesia: Yes Hx Anesthesia Reactions: No Meds Allergies/Adverse Reactions: Allergies Allergy/AdvReac Type Severity Reaction Status Date / Time No Known Allergies Allergy Verified 09/02/17 23:51 Physical Exam - Constitutional Appears: Non-toxic, No Acute Distress - Head Exam Head Exam: ATRAUMATIC, NORMAL INSPECTION, NORMOCEPHALIC - Eye Exam Eye Exam: EOMI, Normal appearance - ENT Exam ENT Exam: Mucous Membranes Moist, Normal Exam - Neck Exam Neck exam: Positive for: Normal Inspection - Respiratory Exam Respiratory Exam: Wheezes, NORMAL BREATHING PATTERN. absent: Respiratory Distress - Cardiovascular Exam Cardiovascular Exam: REGULAR RHYTHM, +S1, +S2. absent: Tachycardia, Systolic Murmur - GI/Abdominal Exam GI & Abdominal Exam: Distended, Normal Bowel Sounds, Tenderness (diffusely) - Extremities Exam Extremities exam: Positive for: normal inspection. Negative for: calf tendern ess, pedal edema - Neurological Exam Neurological exam: Alert, Oriented x3 - Psychiatric Exam Psychiatric exam: Normal Affect, Normal Mood - Skin Skin Exam: Dry, Intact, Normal Color, Warm Results - Vital Signs Recent Vital Signs: Last Vital Signs Temp 97.6 F 04/19/18 09:40 Pulse 83 04/19/18 12:32 Resp 18 04/19/18 12:32 BP 140/89 04/19/18 12:32 Pulse Ox 98 04/19/18 14:27 - Labs Result Diagrams: 04/19/18 12:45 04/19/18 12:45 Labs: Laboratory Results - last 24 hr 04/19/18 04/19/18 12:45 12:45 WBC 6.4 D RBC 4.82 Hgb 15.0 Hct 44.0 MCV 91.4 MCH 31.2 H MCHC 34.1 RDW 13.5 Plt Count 221 MPV 9.7 Neut % (Auto) 61.0 Lymph % (Auto) 20.1 [place] % (Auto) 9.6 Eos % (Auto) 8.6 H Baso % (Auto) 0.7 Neut # (Auto) 3.9 Lymph # (Auto) 1.3 [place] # (Auto) 0.6 Eos # (Auto) 0.5 Baso # (Auto) 0.0 Sodium 140 Potassium 4.1 Chloride 98 Carbon Dioxide 30 Anion Gap 16 BUN 21 H Creatinine 0.8 Est GFR ( Amer) > 60 Est GFR (Non-Af Amer) > 60 Random Glucose 93 Calcium 9.7 Total Bilirubin 0.7 AST 32 ALT 32 Alkaline Phosphatase 81 Total Creatine Kinase 216 H CK-MB (Mass) 2.50 Troponin I < 0.0120 NT-Pro-B Natriuret Pep 105 Total Protein 7.3 Albumin 4.5 Globulin 2.8 Albumin/Globulin Ratio 1.6 Alcohol, Quantitative < 10 Assessment & Plan - Assessment and Plan (Free Text) Assessment: 62 year old male w/ PMHx of uncontrolled asthma, HTN, gastritis admitted w/ acute asthma exacerbation Acute Asthma vs COPD exacerbation -solu-medrol 40mg IV q6 -duonebs q4 -Avalox 400mg IV qd -pulm consult DR. Finch R/O ACS -SHADIA neg x1 f/u HTN -norvasc 10mg po qd Ppx -heparin 5000u sc q8 -protonix 40mg IV qd <Shamika Rodrigez V - Last Filed: 04/20/18 15:38> Results - Vital Signs Recent Vital Signs: Last Vital Signs Temp 98.1 F 04/20/18 07:00 Pulse 98 H 04/20/18 07:00 Resp 20 04/20/18 07:00 BP 138/77 04/20/18 07:00 Pulse Ox 96 04/20/18 11:00 - Labs Result Diagrams: 04/20/18 06:29 04/20/18 06:29 Labs: Laboratory Results - last 24 hr 04/19/18 04/19/18 04/19/18 20:30 20:30 Unknown WBC RBC Hgb Hct MCV MCH MCHC RDW Plt Count MPV Neut % (Auto) Lymph % (Auto) [place] % (Auto) Eos % (Auto) Baso % (Auto) Neut # (Auto) Lymph # (Auto) [place] # (Auto) Eos # (Auto) Baso # (Auto) Neutrophils % (Manual) Lymphocytes % (Manual) Monocytes % (Manual) Platelet Estimate RBC Morphology Sodium Potassium Chloride Carbon Dioxide Anion Gap BUN Creatinine Est GFR ( Amer) Est GFR (Non-Af Amer) POC Glucose (mg/dL) Random Glucose Calcium Phosphorus Magnesium Total Bilirubin AST ALT Alkaline Phosphatase Total Creatine Kinase 203 H CK-MB (Mass) 1.87 Troponin I < 0.0120 Total Protein Albumin Globulin Albumin/Globulin Ratio H.influenzae Type B Ag Negative Ur L.pneumophila Ag Negative Mycoplasma pneumon IgM Positive H N.meningitidis ACY/W135 Negative N.meningi B/E.coli K1 Ag Negative Group B Strep Antigen Negative S. pneumoniae Antigen Negative 04/20/18 04/20/18 04/20/18 00:36 06:29 06:29 WBC 10.5 D RBC 4.64 Hgb 14.3 Hct 42.4 MCV 91.2 MCH 30.7 MCHC 33.7 RDW 13.8 Plt Count 239 MPV 9.6 Neut % (Auto) 92.1 H Lymph % (Auto) 5.8 L [place] % (Auto) 2.0 Eos % (Auto) 0.0 Baso % (Auto) 0.1 Neut # (Auto) 9.7 H Lymph # (Auto) 0.6 L [place] # (Auto) 0.2 Eos # (Auto) 0.0 Baso # (Auto) 0.0 Neutrophils % (Manual) 93 H Lymphocytes % (Manual) 4 L Monocytes % (Manual) 3 Platelet Estimate Normal RBC Morphology Normal Sodium 139 Potassium 3.9 Chloride 101 Carbon Dioxide 26 Anion Gap 17 BUN 24 H Creatinine 0.9 Est GFR ( Amer) > 60 Est GFR (Non-Af Amer) > 60 POC Glucose (mg/dL) Random Glucose 141 H Calcium 9.3 Phosphorus 4.0 Magnesium 2.1 Total Bilirubin 0.4 AST 25 ALT 27 Alkaline Phosphatase 66 Total Creatine Kinase 197 H CK-MB (Mass) 1.96 Troponin I < 0.0120 Total Protein 6.8 Albumin 4.0 Globulin 2.7 Albumin/Globulin Ratio 1.5 H.influenzae Type B Ag Ur L.pneumophila Ag Mycoplasma pneumon IgM N.meningitidis ACY/W135 N.meningi B/E.coli K1 Ag Group B Strep Antigen S. pneumoniae Antigen 04/20/18 04/20/18 09:18 09:31 WBC RBC Hgb Hct MCV MCH MCHC RDW Plt Count MPV Neut % (Auto) Lymph % (Auto) [place] % (Auto) Eos % (Auto) Baso % (Auto) Neut # (Auto) Lymph # (Auto) [place] # (Auto) Eos # (Auto) Baso # (Auto) Neutrophils % (Manual) Lymphocytes % (Manual) Monocytes % (Manual) Platelet Estimate RBC Morphology Sodium Potassium Chloride Carbon Dioxide Anion Gap BUN Creatinine Est GFR ( Amer) Est GFR (Non-Af Amer) POC Glucose (mg/dL) 180 H Random Glucose Calcium Phosphorus Magnesium Total Bilirubin AST ALT Alkaline Phosphatase Total Creatine Kinase CK-MB (Mass) Troponin I < 0.0120 Total Protein Albumin Globulin Albumin/Globulin Ratio H.influenzae Type B Ag Ur L.pneumophila Ag Mycoplasma pneumon IgM N.meningitidis ACY/W135 N.meningi B/E.coli K1 Ag Group B Strep Antigen S. pneumoniae Antigen Attending/Attestation - Attestation I have personally seen and examined this patient.: Yes I have fully participated in the care of the patient.: Yes I have reviewed all pertinent clinical information: Yes Notes (Text): This is a late computer entry for 04/19/2018. Patient seen, examined, case discussed with medical technologist hematology. Patient comes in with pleuritic chest pain associated shortness of breath. Patient has been without his nebulizers given financial constraints. Patient required multiple Serenity treatments and IV steroids in the emergency room per discussion with the ED PA. Patient noted peak flow about 140 per nurse. I did check with patient peak flow repeated was about 200. Patient noted for COPD exacerbation. We will start T DuoNeb treatments, IV steroids, check for strep pneumonia, mycoplasma pneumonia IgM, legionella, and start Avelox 400 mg IV daily and seek pulmonary consultation. Also noted patient reported abdominal pain he has had obstructive series completion in the emergency room. No obstruction noted. Patient has prior history umbilical hernia has been reviewed in prior hospitalizations where it can be electively repaired local hernia is reducible on my exam. Admitting orders discussed with resident time of admission. (1) COPD exacerbation Assessment/plan * Obs to telemetry * Pulmonary (Dr. Finch) vocational placement specialist-->help appreciated * Abdominal Obstructive Series (04/19/18): unremarkable radiographs of chest and abdomen. No evidence of mechanical bowel obstruction. * Duonebs 3ml RQ 4hours * Solumedrol 40mg IV Q6H * Protonix 40mg IV q daily * Avelox 400mg IV q daily (active since 04/19/18) * check strep pneumoniae, urine legionella, mycoplasma pneumoniae IgM * Loratadine 10mg PO daily * Peak flow: 140 (2) Chest Pain Assessment/plan * likely secondary to COPD exacerbation * cardiac risk factor: hypertension, male, former smoker * monitor on telemetry * Check SHADIA and cardiac enzymes * probnp within normal (3) Prior history of Umbilical hernia Assessment & Plan: * reducible (4) Constipation Assessment & Plan: * Start colace 100mg PO BID (5) GERD (gastroesophageal reflux disease) History of Gastritis Small hiatus Hernia Prior History of H pylori (2016) Assessment & Plan: * Protonix 40mg IV daily * Note: patient is a former smoker, and not been on PPi (6) Hypertension Assessment & Plan: * History of noncompliance * Norvasc 10mg Po daily * Monitor vital signs * Patient is on IV steroids which may contribute (7) Prophylactic measure Assessment & Plan: * Protonix 40mg IVP daily for GI ppx * Heparin 5000 units subq 8 hours for DVT ppx * Colace 100mg PO bid
[2018-04-19 14:52] LABS: BARBITURATES, UR NEGATIVE (NEGATIVE); BENZODIAZEPINES, UR NEGATIVE (NEGATIVE); OPIATES, UR NEGATIVE (NEGATIVE); PHENCYCLIDINE, UR NEGATIVE (NEGATIVE)
[2018-04-19 16:58] LABS: LEGIONELLA AG URINE NEGATIVE (NEGATIVE)
[2018-04-19] MEDS: Moxifloxacin IV 400mg/250ml NS 400 MG/250 ML BAG IVPB SCH (16:59)
[2018-04-19] MEDS: MethylPREDNISolone 40 mg Vial IV SCH (17:56)
[2018-04-19 21:00] LABS: CK-MB 1.87 ng/mL (0.0-3.38)
[2018-04-19] MEDS: Albuterol-Ipratrop 3 mg / 0.5 (3 ml) UD INH SCH (23:56)
[2018-04-20] MEDS: MethylPREDNISolone 40 mg Vial IV SCH ×5 (00:45→23:51)
[2018-04-20 01:28] LABS: CK-MB 1.96 ng/mL (0.0-3.38)
[2018-04-20] MEDS: Albuterol-Ipratrop 3 mg / 0.5 (3 ml) UD INH SCH ×6 (03:29→23:54)
[2018-04-20 07:12] LABS: BASO % 0.1 % (0.0-2.0); HEMOGLOBIN 14.3 g/dL (12.0-18.0); LYMPH # 0.6 K/uL (1.0-4.3); LYMPH % 5.8 % (20.0-40.0); MEAN CELL VOLUME 91.2 fL (80.0-94.0); MEAN CORPUSCULAR HEMOGLOBIN 30.7 pg (27.0-31.0); MEAN CORPUSCULAR HGB CONC 33.7 g/dL (33.0-37.0); MEAN PLATELET VOLUME 9.6 fL (7.2-11.7); MONO # 0.2 K/uL (0.0-0.8); NEUT # 9.7 K/uL (1.8-7.0); NEUT % 92.1 % (50.0-75.0); PLATELET COUNT 239 K/uL (130-400); RBC 4.64 Mil/uL (4.40-5.90); RED CELL DISTRIBUTION WIDTH 13.8 % (11.5-14.5)
[2018-04-20 07:25] LABS: WHITE BLOOD COUNT 10.5 K/uL (4.8-10.8)
[2018-04-20 07:43] LABS: ALB/GLOB RATIO 1.5 (1.0-2.1); ALT/SGPT 27 U/L (21-72); AST/SGOT 25 U/L (17-59); BLOOD UREA NITROGEN 24 mg/dL (9-20); CALCIUM 9.3 mg/dl (8.6-10.4); GFR NON-AFRICAN AMERICAN > 60
[2018-04-20 08:51] LABS: LYMPHOCYTE 4 % (20-40); MONOCYTE 3 % (0-10); NEUTROPHIL 93 % (50-75); PLATELET ESTIMATE NORMAL (NORMAL); TOTAL CELLS COUNTED 100
--- NOTE | 2018-04-20 09:25 | PCM.RRT ---
CNC WOOD LATHE OPERATOR Nurses Assessment - Situation Date: 04/20/18 Time CNC WOOD LATHE OPERATOR was called: 09:08 CNC WOOD LATHE OPERATOR Responder Arrival Time:: :09 CNC WOOD LATHE OPERATOR Location:: Med/Surg Room Number: 551B CNC WOOD LATHE OPERATOR Reason for Call: Respiratory Distress CNC WOOD LATHE OPERATOR Called By: RN - IV IV Inserted during CNC WOOD LATHE OPERATOR?: No New IV Insertion Tolerance: Good - Respiratory CNC WOOD LATHE OPERATOR Delivery Method: Nasal Cannula @L/min Received Nebulizer Treatments: Yes Was the Patient Ventilated with Bag/Mask 100% O2?: No Secretions Suctioned?: No Was the Patient Intubated?: No Was the Patient Placed on a Ventilator?: No - Diagnostic Test Ordered EKG: Yes Chest X-Ray: Yes CT Scan: No - Stat Labs Ordered CNC WOOD LATHE OPERATOR Stat Labs Ordered: ABG CPR started during CNC WOOD LATHE OPERATOR?: No - [place] Coma Scale Coma Scale Eye Opening: Spontaneous Coma Scale Motor: Obeys Commands Movement Coma Scale Verbal: Oriented Coma Scale Total: 15 - Recommendations 5) CNC WOOD LATHE OPERATOR Level of Care Recommendations: Remain in current setting Notifications: Consultations I.Reason for CNC WOOD LATHE OPERATOR - A) Acute Change in Patient: (Select all that apply): Staff member or family is worried about patient - Neurological Status (Select all that apply): Alert, Responsive, Oriented (0), Verbal, Follows Commands, Weakness. absent: Disoriented, Confused, Lethargic, Aggressive - Respiratory Oxygen Delivery Method: Nasal Cannula @L/min - Constitutional Appears: Non-toxic - Head Head Exam: ATRAUMATIC, NORMOCEPHALIC - Eyes Eye Exam: EOMI, Normal appearance - Respiratory Exam Respiratory Exam: Wheezes, Respiratory Distress - Cardiovascular Exam Cardiovascular Exam: Tachycardia, REGULAR RHYTHM, +S1, +S2 - GI/Abdominal Exam GI & Abdominal Exam: Soft. absent: Tenderness - Neurological Exam Neurological Exam: Alert, Awake, Oriented x3 - Extremities Exam Extremities Exam: Full ROM, Normal Inspection Plan - Assessment of Findings&Treatment Plan CNC WOOD LATHE OPERATOR note Rapid response was called at 9:08 am by nursing team. On arrival, nurse informed that patient was having difficulty breathing and appeared to be in respiratory distress and diaphoretic. On arrival vitals were the following: HR 148, BP 165/85, O2 is 94%, RR 26. Patient appeared to be in mild distress, unable to speak due to excessive coughing, sitting in bed with the help of nurse. Patient complained of chest pain and shortness of breath. Portable chest Xray, EKG and troponin levels were ordered. Respiratory team provided 1 x duonebs treatment. SOlumedrol 40mg IV x 1 dose STAT was ordered. ABGs ordered. After treatment, patient reported feeling much breather, but still complained of shortness of br eath and chest discomfort. End of rapid vitals were the following: T: 98.1, HR 126, BP143/88, O2 93% on NC, RR 16. Patient remained in current setting. Pulmonology was consulted.
--- NOTE | 2018-04-20 10:35 | RAD ---
HISTORY: SOB, COPD exarc COMPARISON: Chest x-ray performed 11/30/17 TECHNIQUE: Chest, one view. FINDINGS: Examination limited by habitus. LUNGS: Right hilar prominence. Right infrahilar infiltrate or atelectasis. Left basilar infiltrate or atelectasis. No definite pneumothorax. Probable small left pleural effusion. Please note that chest x-ray has limited sensitivity for the detection of pulmonary masses. CARDIOVASCULAR: Borderline cardiomegaly. OSSEOUS STRUCTURES: Degenerative changes. VISUALIZED UPPER ABDOMEN: Unremarkable. OTHER FINDINGS: None. IMPRESSION: Right hilar prominence. Right infrahilar infiltrate or atelectasis. Left basilar infiltrate or atelectasis. Probable small left pleural effusion.
[2018-04-20 11:37] LABS: N MENINGITIS ACY/W135 NEGATIVE (NEGATIVE); N MENINGITIS B/ECOLI K1 NEGATIVE (NEGATIVE); STREP PNEUMONIAE NEGATIVE (NEGATIVE); STREPTOCOCCUS B NEGATIVE (NEGATIVE)
--- NOTE | 2018-04-20 11:41 | CARD ---
APPROVED REPORT Date of service: 04/19/2018 EKG Measurement Heart [id number] <Conclusion> Normal sinus rhythm Minimal voltage criteria for LVH, may be normal variant Nonspecific T wave abnormality Abnormal ECG
--- NOTE | 2018-04-20 11:47 | CARD ---
APPROVED REPORT Date of service: 04/19/2018 EKG Measurement Heart [id number] <Conclusion> Normal sinus rhythm Moderate voltage criteria for LVH, may be normal variant Nonspecific T wave abnormality Abnormal ECG
--- NOTE | 2018-04-20 16:49 | CP.PCM.CON ---
History of Present Illness - History of Present Illness History of Present Illness: reason for consultation: shortness of breath 62-year-old male with history of asthma, gastritis, hypertension who presented to emergency with worsening shortness of breath and cough productive of yellowish phlegm for the past 2-3 weeks. PMHx: Asthma, HTN, gastritis PSHx: Endoscopy to eval gastritis Meds: unknown Allergies: NKDA FamHx: Mom , breast cancer SocHx: Former EtOH abuse, quit 2006; former tobacco use, 17pack years, denies drug use Review of Systems - Review of Systems All systems: reviewed and no additional remarkable complaints except (shortness of breath and cough) Past Patient History - Infectious Disease Hx of Infectious Diseases: None - Past Medical History & Family History Past Medical History?: Yes - Past Social History Smoking Status: Former Smoker - CARDIAC Hx Hypertension: Yes - PULMONARY Hx Asthma: Yes Hx Chronic Obstructive Pulmonary Disease (COPD): Yes (ASTHMA) - NEUROLOGICAL Hx Neurological Disorder: No - HEENT Hx HEENT Problems: No - RENAL Hx Chronic Kidney Disease: No - ENDOCRINE/METABOLIC Hx Endocrine Disorders: No - HEMATOLOGICAL/ONCOLOGICAL Hx Blood Disorders: No - INTEGUMENTARY Hx Dermatological Problems: No - MUSCULOSKELETAL/RHEUMATOLOGICAL Hx Falls: Yes - GASTROINTESTINAL Hx Gastritis: Yes - GENITOURINARY/GYNECOLOGICAL Hx Genitourinary Disorders: No - PSYCHIATRIC Hx Substance Use: No - SURGICAL HISTORY Hx Surgeries: Yes - ANESTHESIA Hx Anesthesia: Yes Hx Anesthesia Reactions: No Meds Allergies/Adverse Reactions: Allergies Allergy/AdvReac Type Severity Reaction Status Date / Time No Known Allergies Allergy Verified 09/02/17 23:51 - Medications Medications: Current Medications Albuterol/Ipratropium (Duoneb 3 Mg/0.5 Mg (3 Ml) Ud) 3 ml INH RQ4 [facility] Last Admin: 04/20/18 16:15 Dose: 3 ml Amlodipine Besylate (Norvasc) 10 mg PO DAILY [facility] Last Admin: 04/20/18 10:02 Dose: 10 mg Docusate Sodium (Colace) 100 mg PO BID [facility] Last Admin: 04/20/18 10:02 Dose: 100 mg Heparin Sodium (Porcine) (Heparin) 5,000 units SC Q8 [facility] Last Admin: 04/20/18 14:29 Dose: 5,000 units Moxifloxacin HCl (Avelox Iv 400mg/250ml Ns) 400 mg in 250 mls @ 167 mls/hr IVPB Q24H [facility]; Protocol Last Admin: 04/19/18 16:59 Dose: 167 mls/hr Loratadine (Claritin) 10 mg PO DAILY [facility] Methylprednisolone (Solu-Medrol) 40 mg IV Q6 [facility] Last Admin: 04/20/18 12:48 Dose: 40 mg Nicotine (Nicoderm Cq) 1 patch TD DAILY [facility] Pantoprazole Sodium (Protonix Inj) 40 mg IVP DAILY [facility] Last Admin: 04/20/18 10:02 Dose: 40 mg Saccharomyces Boulardii (Florastor) 250 mg PO BID [facility] Tiotropium Heiskell (Spiriva) 18 mcg INH RQ24 [facility] Physical Exam - Head Exam Head Exam: ATRAUMATIC, NORMOCEPHALIC - ENT Exam ENT Exam: Mucous Membranes Moist - Respiratory Exam Respiratory Exam: Rhonchi, Wheezes - Cardiovascular Exam Cardiovascular Exam: REGULAR RHYTHM - GI/Abdominal Exam GI & Abdominal Exam: Normal Bowel Sounds, Soft Results - Vital Signs Recent Vital Signs: Last Vital Signs Temp 97.8 F 04/20/18 15:00 Pulse 108 H 04/20/18 15:00 Resp 20 04/20/18 15:00 BP 148/69 04/20/18 15:00 Pulse Ox 95 04/20/18 15:00 - Labs Result Diagrams: 04/20/18 06:29 04/20/18 06:29 Labs: Laboratory Results - last 24 hr 04/19/18 04/19/18 04/19/18 20:30 20:30 Unknown WBC RBC Hgb Hct MCV MCH MCHC RDW Plt Count MPV Neut % (Auto) Lymph % (Auto) [place] % (Auto) Eos % (Auto) Baso % (Auto) Neut # (Auto) Lymph # (Auto) [place] # (Auto) Eos # (Auto) Baso # (Auto) Neutrophils % (Manual) Lymphocytes % (Manual) Monocytes % (Manual) Platelet Estimate RBC Morphology Sodium Potassium Chloride Carbon Dioxide Anion Gap BUN Creatinine Est GFR ( Amer) Est GFR (Non-Af Amer) POC Glucose (mg/dL) Random Glucose Calcium Phosphorus Magnesium Total Bilirubin AST ALT Alkaline Phosphatase Total Creatine Kinase 203 H CK-MB (Mass) 1.87 Troponin I < 0.0120 Total Protein Albumin Globulin Albumin/Globulin Ratio H.influenzae Type B Ag Negative Ur L.pneumophila Ag Negative Mycoplasma pneumon IgM Positive H N.meningitidis ACY/W135 Negative N.meningi B/E.coli K1 Ag Negative Group B Strep Antigen Negative S. pneumoniae Antigen Negative 04/20/18 04/20/18 04/20/18 00:36 06:29 06:29 WBC 10.5 D RBC 4.64 Hgb 14.3 Hct 42.4 MCV 91.2 MCH 30.7 MCHC 33.7 RDW 13.8 Plt Count 239 MPV 9.6 Neut % (Auto) 92.1 H Lymph % (Auto) 5.8 L [place] % (Auto) 2.0 Eos % (Auto) 0.0 Baso % (Auto) 0.1 Neut # (Auto) 9.7 H Lymph # (Auto) 0.6 L [place] # (Auto) 0.2 Eos # (Auto) 0.0 Baso # (Auto) 0.0 Neutrophils % (Manual) 93 H Lymphocytes % (Manual) 4 L Monocytes % (Manual) 3 Platelet Estimate Normal RBC Morphology Normal Sodium 139 Potassium 3.9 Chloride 101 Carbon Dioxide 26 Anion Gap 17 BUN 24 H Creatinine 0.9 Est GFR ( Amer) > 60 Est GFR (Non-Af Amer) > 60 POC Glucose (mg/dL) Random Glucose 141 H Calcium 9.3 Phosphorus 4.0 Magnesium 2.1 Total Bilirubin 0.4 AST 25 ALT 27 Alkaline Phosphatase 66 Total Creatine Kinase 197 H CK-MB (Mass) 1.96 Troponin I < 0.0120 Total Protein 6.8 Albumin 4.0 Globulin 2.7 Albumin/Globulin Ratio 1.5 H.influenzae Type B Ag Ur L.pneumophila Ag Mycoplasma pneumon IgM N.meningitidis ACY/W135 N.meningi B/E.coli K1 Ag Group B Strep Antigen S. pneumoniae Antigen 04/20/18 04/20/18 09:18 09:31 WBC RBC Hgb Hct MCV MCH MCHC RDW Plt Count MPV Neut % (Auto) Lymph % (Auto) [place] % (Auto) Eos % (Auto) Baso % (Auto) Neut # (Auto) Lymph # (Auto) [place] # (Auto) Eos # (Auto) Baso # (Auto) Neutrophils % (Manual) Lymphocytes % (Manual) Monocytes % (Manual) Platelet Estimate RBC Morphology Sodium Potassium Chloride Carbon Dioxide Anion Gap BUN Creatinine Est GFR ( Amer) Est GFR (Non-Af Amer) POC Glucose (mg/dL) 180 H Random Glucose Calcium Phosphorus Magnesium Total Bilirubin AST ALT Alkaline Phosphatase Total Creatine Kinase CK-MB (Mass) Troponin I < 0.0120 Total Protein Albumin Globulin Albumin/Globulin Ratio H.influenzae Type B Ag Ur L.pneumophila Ag Mycoplasma pneumon IgM N.meningitidis ACY/W135 N.meningi B/E.coli K1 Ag Group B Strep Antigen S. pneumoniae Antigen Assessment & Plan (1) Chr obstructive pulmonary disease w/ acute lower respiratory infxn Status: Acute Comment: iV steroids. Nebulizer treatment. IV antibiotics. Follow-up chest x- ray. Follow-up ABG. Pulmonary function test
[2018-04-20] MEDS: Saccharomyces Boulardi 250 mg Cap PO SCH (17:05)
[2018-04-20] MEDS: Moxifloxacin IV 400mg/250ml NS 400 MG/250 ML BAG IVPB SCH (17:05)
[2018-04-20] MEDS ORDERED: Albuterol-Ipratrop 3 mg / 0.5 (3 ml) UD INH PRN (18:30)
[2018-04-20] MEDS ORDERED: Albuterol 0.083% Inhal Sol (2.5 mg/3 mL) UD INH PRN (18:41)
[2018-04-20] MEDS: guaiFENesin 600 mg ER Tab PO SCH (19:06)
--- NOTE | 2018-04-20 21:37 | CP.PCM.PN ---
<Hema Santiago - Last Filed: 04/20/18 21:30> Subjective - Date & Time of Evaluation Date of Evaluation: 04/20/18 Time of Evaluation: 10:00 - Subjective Subjective: PGY-[address] Laura service Patient is seen and examined at bedside. Rapid Response was called on patient at 9:08 am. Patient's complained of difficulty breathing, with coughing and chest discomfort. Initial vitals were done: HR 148, BP 165/85, O2 is 94%, RR 26. Patient was given IV solumedrol and duonebs. Patient was instructed to sit in 90 degree angle. Portable Chest xray, EKG, ABGs and troponin were ordered. After 10 minutes, patient reported improvement in breathing but continue complaining of phlegm stuck in throat and chest discomfort. Patient continue having coughs. Patient denies fever, chills, nausea, vomiting. Objective - Vital Signs/Intake and Output Vital Signs (last 24 hours): Temp Pulse Resp BP Pulse Ox 97.8 F 106 H 20 148/69 95 04/20/18 15:00 04/20/18 15:17 04/20/18 15:00 04/20/18 15:00 04/20/18 15:00 Intake and Output: 04/20/18 04/21/18 18:59 06:59 Intake Total 600 Balance 600 - Medications Medications: Current Medications Albuterol Sulfate (Albuterol 0.083% Inhal Tasneem (2.5 Mg/3 Ml) Ud) 2.5 mg INH RQ2 PRN PRN Reason: Shortness of Breath Albuterol/Ipratropium (Duoneb 3 Mg/0.5 Mg (3 Ml) Ud) 3 ml INH RQ4 [facility] Last Admin: 04/20/18 19:40 Dose: 3 ml Amlodipine Besylate (Norvasc) 10 mg PO DAILY [facility] Last Admin: 04/20/18 10:02 Dose: 10 mg Docusate Sodium (Colace) 100 mg PO BID [facility] Last Admin: 04/20/18 17:05 Dose: 100 mg Fluticasone/Vilanterol (Breo Ellipta 100-25 Mcg Inh) 1 puff INH RQ24 [facility] Guaifenesin (Mucinex La) 600 mg PO BID [facility] Last Admin: 04/20/18 19:06 Dose: 600 mg Heparin Sodium (Porcine) (Heparin) 5,000 units SC Q8 [facility] Last Admin: 04/20/18 14:29 Dose: 5,000 units Moxifloxacin HCl (Avelox Iv 400mg/250ml Ns) 400 mg in 250 mls @ 167 mls/hr IVPB Q24H [facility]; Protocol Last Admin: 04/20/18 17:05 Dose: 167 mls/hr Loratadine (Claritin) 10 mg PO DAILY [facility] Methylprednisolone (Solu-Medrol) 40 mg IV Q6 [facility] Last Admin: 04/20/18 17:04 Dose: 40 mg Nicotine (Nicoderm Cq) 1 patch TD DAILY [facility] Pantoprazole Sodium (Protonix Inj) 40 mg IVP DAILY [facility] Last Admin: 04/20/18 10:02 Dose: 40 mg Saccharomyces Boulardii (Florastor) 250 mg PO BID [facility] Last Admin: 04/20/18 17:05 Dose: 250 mg Tiotropium [place] (Spiriva) 18 mcg INH RQ24 [facility] - Labs Labs: 04/20/18 06:29 04/20/18 06:29 - Constitutional Appears: Non-toxic - Head Exam Head Exam: ATRAUMATIC, NORMAL INSPECTION, NORMOCEPHALIC - Eye Exam Eye Exam: EOMI, Normal appearance - ENT Exam ENT Exam: Normal Exam - Neck Exam Neck Exam: Full ROM, Normal Inspection - Respiratory Exam Respiratory Exam: Wheezes Additional comments: wheezing bilaterally - Cardiovascular Exam Cardiovascular Exam: Tachycardia, REGULAR RHYTHM, +S1, +S2 - GI/Abdominal Exam GI & Abdominal Exam: Soft. absent: Tenderness - Extremities Exam Extremities Exam: Full ROM, Normal Inspection - Back Exam Back Exam: Full ROM, NORMAL INSPECTION - Neurological Exam Neurological Exam: Alert, Awake, Oriented x3 - Psychiatric Exam Psychiatric exam: Normal Affect, Normal Mood - Skin Skin Exam: Dry, Intact, Normal Color, Warm Assessment and Plan - Assessment and Plan (Free Text) Plan: (1) COPD exacerbation * Continue telemetry * Pulmonary (Dr. Finch) --> iV steroids, Nebulizer treatment, IV antibiotics. Follow-up chest x-ray. Follow-up ABG. Pulmonary function test * Abdominal Obstructive Series (04/19/18): unremarkable radiographs of chest and abdomen. No evidence of mechanical bowel obstruction. * Portable Chest x-ray (ordered during , 04/20) --> Right hilar prominence. Right Infrahilar infiltrate or atelectasis. Left basilar infiltrate or atelectasis. Probable small left pleural effusion. * Previous Chest Xray study (11/30/17) --> No active disease * check strep pneumoniae: negative , urine legionella: negative, mycoplasma pneumoniae IgM: postive * Peak flow: 140 * ABG at rapid - pH - 7.39, pCo2 - 37, pO2 - 76, s O2 -96.6 * F/U Am labs * Continue O2 NC @ 3L Meds: * Duonebs 3ml RQ 4hours [facility] * Albuterol 2.5 RQ2 PRN * Solumedrol 40mg IV Q6H * Protonix 40mg IV q daily * Tiotropium [place] 18 mcg INH Qdaily [facility] * Avelox 400mg IV q daily, day #1 * Mucinex 600 mg PO BID * Loratadine 10mg PO daily (2) Chest Pain * likely secondary to COPD exacerbation * cardiac risk factor: hypertension, male, former smoker * monitor on telemetry * SHADIA negative x 3 * probnp within normal * EKG 04/20 during rapid - sinus tachy, nonspecifc T wave abnormality * EKG 04/20 previous - normal sinus, nonspecific T wave abnormality (3) Prior history of Umbilical hernia * reducible (4) Constipation * Start colace 100mg PO BID (5) GERD (gastroesophageal reflux disease) History of Gastritis Small hiatus Hernia * Protonix 40mg IV daily * Note: patient is a former smoker, and not been on PPi (6) Hypertension * History of noncompliance * Norvasc 10mg PO daily * Monitor vital signs * Patient is on IV steroids which may contribute (7) Prophylactic measure * Protonix 40mg IVP daily for GI ppx * Heparin 5000 units subq 8 hours for DVT ppx * Colace 100mg PO bid * Nicotine patch * Florastor Plan discussed with Dr Valentín Santiago, PGY-1 <Matias Laura - Last Filed: 04/23/18 14:51> Objective - Vital Signs/Intake and Output Vital Signs (last 24 hours): Temp Pulse Resp BP Pulse Ox 98.1 F 84 20 163/93 H 97 04/23/18 07:05 04/23/18 07:05 04/23/18 07:05 04/23/18 07:05 04/23/18 07:05 - Labs Labs: 04/23/18 08:33 04/23/18 08:33 Attending/Attestation - Attestation I have personally seen and examined this patient.: Yes I have fully participated in the care of the patient.: Yes I have reviewed all pertinent clinical information, including history, physical exam and plan: Yes Notes (Text): COPD exacerbation/Mycoplasma PNA
[2018-04-21] MEDS: Albuterol-Ipratrop 3 mg / 0.5 (3 ml) UD INH SCH ×5 (03:26→23:48)
[2018-04-21] MEDS: MethylPREDNISolone 40 mg Vial IV SCH ×4 (05:21→18:31)
[2018-04-21 07:18] LABS: BASO % 0.1 % (0.0-2.0); HEMOGLOBIN 13.6 g/dL (12.0-18.0); LYMPH # 0.7 K/uL (1.0-4.3); LYMPH % 4.4 % (20.0-40.0); MEAN CELL VOLUME 91.1 fL (80.0-94.0); MEAN CORPUSCULAR HEMOGLOBIN 30.8 pg (27.0-31.0); MEAN CORPUSCULAR HGB CONC 33.8 g/dL (33.0-37.0); MEAN PLATELET VOLUME 9.2 fL (7.2-11.7); MONO # 0.6 K/uL (0.0-0.8); MONO % 3.8 % (0.0-10.0); NEUT # 14.1 K/uL (1.8-7.0); NEUT % 91.7 % (50.0-75.0); PLATELET COUNT 222 K/uL (130-400); RBC 4.42 Mil/uL (4.40-5.90); RED CELL DISTRIBUTION WIDTH 13.9 % (11.5-14.5); WHITE BLOOD COUNT 15.4 K/uL (4.8-10.8)
[2018-04-21 07:48] LABS: ALB/GLOB RATIO 1.6 (1.0-2.1); ALT/SGPT 23 U/L (21-72); AST/SGOT 23 U/L (17-59); BLOOD UREA NITROGEN 29 mg/dL (9-20); GFR NON-AFRICAN AMERICAN > 60
[2018-04-21] MEDS: Fluticasone-Vilanterol 100/25mcg Diskus INH SCH (08:31)
[2018-04-21] MEDS: Tiotropium 18 mcg Cap For Inhalation INH SCH (08:31)
[2018-04-21 08:58] LABS: LYMPHOCYTE 8 % (20-40); MONOCYTE 2 % (0-10); NEUTROPHIL 90 % (50-75); PLATELET ESTIMATE NORMAL (NORMAL); TOTAL CELLS COUNTED 100
--- NOTE | 2018-04-21 09:11 | RAD ---
Date of service: 04/21/2018 HISTORY: shortness of breath, COPD COMPARISON: 04/20/2018 and a 09/10/2012 study. FINDINGS: LUNGS: Interval increased opacity low-density probably a left pleural effusion with or without pleural reaction suggested on this current study left inferolateral hemithorax projections different between all exams PLEURA: Interval increase left pleural effusion with or without interval increase conspicuity of left pleural thickening. No pneumothorax seen. CARDIOVASCULAR: Heart size probably top-normal given projection. Pulmonary vasculature probably very minimally increased. Trace right peribronchial cuffing noted OSSEOUS STRUCTURES: No significant abnormalities. VISUALIZED UPPER ABDOMEN: Normal. OTHER FINDINGS: Prior recent suggestion of a prominent right hilum is less conspicuous on this exam. The current appearance is is probably not significantly changed with the 2013 study. However the current study is different with the [address] chest study would be more sensitive in assessing any subtle right hilar pathology in this regard. IMPRESSION: Small left pleural effusion-slightly increased since most recent prior study. A concomitant nonspecific left pleural reaction of unknown chronicity is possible Top-normal heart size. Probable minimal pulmonary venous congestion present. The prior prominent right hilum is less pronounced on this exam. Please note the above in the other findings section
[2018-04-21] MEDS: Saccharomyces Boulardi 250 mg Cap PO SCH ×2 (09:39→17:20)
[2018-04-21] MEDS: guaiFENesin 600 mg ER Tab PO SCH ×2 (09:39→17:21)
[2018-04-21] MEDS: Acetylcysteine 20% Inhal Soln (4ml) INH SCH ×3 (13:45→19:30)
--- NOTE | 2018-04-21 15:34 | CP.PCM.PN ---
<Anurag Candelario - Last Filed: 04/21/18 18:07> Subjective - Date & Time of Evaluation Date of Evaluation: 04/21/18 Time of Evaluation: 09:20 - Subjective Subjective: Medicine Progress Note for Hospitalist Service Pt seen and examined at bedside this am. States he is still coughing up yellowish phlegm but that it is improving compared to yesterday. Reports shortness of breath improving, has been able to ambulate from bed to bathroom and back without concerns. Denies fever, chills, chest pain, n/v/d/c, abd pain, urinary complaints, or other symptoms. Tolerating PO diet well. Objective - Vital Signs/Intake and Output Vital Signs (last 24 hours): Temp Pulse Resp BP Pulse Ox 98.2 F 90 20 153/95 H 95 04/21/18 08:12 04/21/18 08:12 04/21/18 08:12 04/21/18 08:12 04/21/18 08:12 - Medications Medications: Current Medications Acetylcysteine (Acetylcysteine 20%) 4 ml INH RQ6 [facility] Last Admin: 04/21/18 13:45 Dose: 4 ml Albuterol Sulfate (Albuterol 0.083% Inhal Tasneem (2.5 Mg/3 Ml) Ud) 2.5 mg INH RQ2 PRN PRN Reason: Shortness of Breath Albuterol/Ipratropium (Duoneb 3 Mg/0.5 Mg (3 Ml) Ud) 3 ml INH RQ4 [facility] Last Admin: 04/21/18 13:45 Dose: 3 ml Amlodipine Besylate (Norvasc) 10 mg PO DAILY [facility] Last Admin: 04/21/18 09:39 Dose: 10 mg Docusate Sodium (Colace) 100 mg PO BID [facility] Last Admin: 04/21/18 09:39 Dose: 100 mg Fluticasone/Vilanterol (Breo Ellipta 100-25 Mcg Inh) 1 puff INH RQ24 [facility] Last Admin: 04/21/18 08:31 Dose: 1 puff Guaifenesin (Mucinex La) 600 mg PO BID [facility] Last Admin: 04/21/18 09:39 Dose: 600 mg Heparin Sodium (Porcine) (Heparin) 5,000 units SC Q8 [facility] Last Admin: 04/21/18 14:30 Dose: 5,000 units Moxifloxacin HCl (Avelox Iv 400mg/250ml Ns) 400 mg in 250 mls @ 167 mls/hr IVPB Q24H [facility]; Protocol Last Admin: 04/20/18 17:05 Dose: 167 mls/hr Loratadine (Claritin) 10 mg PO DAILY [facility] Last Admin: 04/21/18 09:39 Dose: 10 mg Methylprednisolone (Solu-Medrol) 40 mg IV Q6 [facility] Last Admin: 04/21/18 12:55 Dose: 40 mg Nicotine (Nicoderm Cq) 1 patch TD DAILY [facility] Last Admin: 04/21/18 09:38 Dose: 1 patch Pantoprazole Sodium (Protonix Inj) 40 mg IVP DAILY [facility] Last Admin: 04/21/18 09:38 Dose: 40 mg Saccharomyces Boulardii (Florastor) 250 mg PO BID [facility] Last Admin: 04/21/18 09:39 Dose: 250 mg Tiotropium [place] (Spiriva) 18 mcg INH RQ24 [facility] Last Admin: 04/21/18 08:31 Dose: 18 mcg - Labs Labs: 04/21/18 07:06 04/21/18 07:06 - Constitutional Appears: Non-toxic, No Acute Distress - Head Exam Head Exam: ATRAUMATIC, NORMOCEPHALIC - Eye Exam Eye Exam: EOMI, Normal appearance, PERRL - ENT Exam ENT Exam: Mucous Membranes Moist, Normal Oropharynx - Neck Exam Neck Exam: Full ROM, Normal Inspection. absent: Lymphadenopathy - Respiratory Exam Respiratory Exam: NORMAL BREATHING PATTERN Additional comments: Mild wheezing heard in all lung warner, trace crackles heard in L lower lung bas e - Cardiovascular Exam Cardiovascular Exam: REGULAR RHYTHM, +S1, +S2 - GI/Abdominal Exam GI & Abdominal Exam: Soft, Normal Bowel Sounds. absent: Distended, Firm, Guarding, Tenderness, Organomegaly, Rebound - Extremities Exam Extremities Exam: Full ROM, Normal Capillary Refill Additional comments: Clubbing noted on exam of upper extremities b/l - Neurological Exam Neurological Exam: Alert, Awake, CN II-XII Intact, Normal Gait, Oriented x3 - Psychiatric Exam Psychiatric exam: Normal Affect, Normal Mood - Skin Skin Exam: Dry, Intact, Warm Assessment and Plan - Assessment and Plan (Free Text) Assessment: 62M PMhx uncontrolled asthma, HTN, and gastritis, presented with c/o progressive shortness of breath with productive yellow sputum for 2 weeks. Admitted for treatment of asthma/COPD exacerbation and Mycoplasma PNA. Plan: COPD exacerbation/Mycoplasma PNA Continue telemetry Pulmonary (Dr. Finch) --> recommended IV steroids, Nebulizer treatment, IV antibiotics. Pulmonary function tests as outpatient; f/u repeat ABG Abdominal Obstructive Series (04/19/18): unremarkable radiographs of chest and abdomen. No evidence of mechanical bowel obstruction. Portable Chest x-ray (ordered during RR, 04/20) --> Right hilar prominence. Right Infrahilar infiltrate or atelectasis. Left basilar infiltrate or atelectasis. Probable small left pleural effusion. Repeat CXR today 04/21: small L pleural effusion slightly increased since p revious study, concomitant non-specific L pleural reaction of unknown chronicity possible; prior prominent R hilum less pronounced on this exam Previous Chest Xray study (11/30/17) --> No active disease check strep pneumoniae: negative , urine legionella: negative, mycoplasma pneumoniae IgM: postive Meds: Duonebs 3ml RQ 4hours [facility] Albuterol 2.5 RQ2 PRN Solumedrol 40mg IV Q6H Protonix 40mg IV q daily Tiotropium [place] 18 mcg INH Qdaily [facility] Avelox 400mg IV q daily, day #2 Mucinex 600 mg PO BID Loratadine 10mg PO daily Added Mucomyst q6h Chest Pain likely secondary to COPD exacerbation cardiac risk factors: hypertension, male, former smoker monitor on telemetry SHADIA negative x 3 probnp within normal EKG 04/20 during rapid - sinus tachy, nonspecifc T wave abnormality EKG 04/20 previous - normal sinus, nonspecific T wave abnormality Prior history of Umbilical hernia - reducible Constipation - no complaints today, c/w colace 100 mg PO bid GERD History of Gastritis, Small hiatal Hernia Protonix 40mg IV daily Note: patient is a former smoker, and has not been on PPI Hypertension History of noncompliance Norvasc 10mg PO daily Monitor vital signs Patient is on IV steroids which may contribute to elevated pressures Prophylactic measure Protonix 40mg IVP daily for GI ppx Heparin 5000 units subq 8 hours for DVT ppx Colace 100mg PO bid Nicotine patch Florastor Pt seen, examined with, and plan discussed with Dr. Laura, attending. Anurag Kodak, DO PGY-1, [employer] Engineer Pager #[phone] <Matias Laura - Last Filed: 04/23/18 14:51> Objective - Vital Signs/Intake and Output Vital Signs (last 24 hours): Temp Pulse Resp BP Pulse Ox 98.1 F 84 20 163/93 H 97 04/23/18 07:05 04/23/18 07:05 04/23/18 07:05 04/23/18 07:05 04/23/18 07:05 - Labs Labs: 04/23/18 08:33 04/23/18 08:33 Attending/Attestation - Attestation I have personally seen and examined this patient.: Yes I have fully participated in the care of the patient.: Yes I have reviewed all pertinent clinical information, including history, physical exam and plan: Yes Notes (Text): COPD exacerbation/Mycoplasma PNA
--- NOTE | 2018-04-21 15:45 | CP.PCM.PN ---
Subjective - Date & Time of Evaluation Date of Evaluation: 04/21/18 Time of Evaluation: 09:30 - Subjective Subjective: patient seen and examined Breathing better still having cough Complaining off back pain Objective - Vital Signs/Intake and Output Vital Signs (last 24 hours): Temp Pulse Resp BP Pulse Ox 98.2 F 90 20 153/95 H 95 04/21/18 08:12 04/21/18 08:12 04/21/18 08:12 04/21/18 08:12 04/21/18 08:12 - Medications Medications: Current Medications Acetylcysteine (Acetylcysteine 20%) 4 ml INH RQ6 [facility] Last Admin: 04/21/18 13:45 Dose: 4 ml Albuterol Sulfate (Albuterol 0.083% Inhal Tasneem (2.5 Mg/3 Ml) Ud) 2.5 mg INH RQ2 PRN PRN Reason: Shortness of Breath Albuterol/Ipratropium (Duoneb 3 Mg/0.5 Mg (3 Ml) Ud) 3 ml INH RQ4 [facility] Last Admin: 04/21/18 13:45 Dose: 3 ml Amlodipine Besylate (Norvasc) 10 mg PO DAILY [facility] Last Admin: 04/21/18 09:39 Dose: 10 mg Docusate Sodium (Colace) 100 mg PO BID [facility] Last Admin: 04/21/18 09:39 Dose: 100 mg Fluticasone/Vilanterol (Breo Ellipta 100-25 Mcg Inh) 1 puff INH RQ24 [facility] Last Admin: 04/21/18 08:31 Dose: 1 puff Guaifenesin (Mucinex La) 600 mg PO BID [facility] Last Admin: 04/21/18 09:39 Dose: 600 mg Heparin Sodium (Porcine) (Heparin) 5,000 units SC Q8 [facility] Last Admin: 04/21/18 14:30 Dose: 5,000 units Moxifloxacin HCl (Avelox Iv 400mg/250ml Ns) 400 mg in 250 mls @ 167 mls/hr IVPB Q24H [facility]; Protocol Last Admin: 04/20/18 17:05 Dose: 167 mls/hr Loratadine (Claritin) 10 mg PO DAILY [facility] Last Admin: 04/21/18 09:39 Dose: 10 mg Methylprednisolone (Solu-Medrol) 40 mg IV Q6 [facility] Last Admin: 04/21/18 12:55 Dose: 40 mg Nicotine (Nicoderm Cq) 1 patch TD DAILY [facility] Last Admin: 04/21/18 09:38 Dose: 1 patch Pantoprazole Sodium (Protonix Inj) 40 mg IVP DAILY [facility] Last Admin: 04/21/18 09:38 Dose: 40 mg Saccharomyces Boulardii (Florastor) 250 mg PO BID [facility] Last Admin: 04/21/18 09:39 Dose: 250 mg Tiotropium [place] (Spiriva) 18 mcg INH RQ24 [facility] Last Admin: 04/21/18 08:31 Dose: 18 mcg - Labs Labs: 04/21/18 07:06 04/21/18 07:06 - Head Exam Head Exam: ATRAUMATIC, NORMOCEPHALIC - ENT Exam ENT Exam: Mucous Membranes Moist - Respiratory Exam Respiratory Exam: Rhonchi, Wheezes - Cardiovascular Exam Cardiovascular Exam: REGULAR RHYTHM - GI/Abdominal Exam GI & Abdominal Exam: Soft Assessment and Plan (1) Chr obstructive pulmonary disease w/ acute lower respiratory infxn Assessment & Plan: continue nebulizer treatment and steroids Mucomyst Antibiotics Status: Acute
[2018-04-21] MEDS: Moxifloxacin IV 400mg/250ml NS 400 MG/250 ML BAG IVPB SCH (17:20)
[2018-04-22] MEDS: Acetylcysteine 20% Inhal Soln (4ml) INH SCH ×4 (01:05→20:00)
[2018-04-22] MEDS: Albuterol-Ipratrop 3 mg / 0.5 (3 ml) UD INH SCH ×5 (05:17→20:00)
[2018-04-22] MEDS: MethylPREDNISolone 40 mg Vial IV SCH ×3 (05:36→19:17)
[2018-04-22 06:37] LABS: BASO # 0.1 K/uL (0.0-0.2); BASO % 0.5 % (0.0-2.0); LYMPH # 0.9 K/uL (1.0-4.3); LYMPH % 5.7 % (20.0-40.0); MEAN CELL VOLUME 90.8 fL (80.0-94.0); MEAN CORPUSCULAR HEMOGLOBIN 30.8 pg (27.0-31.0); MEAN PLATELET VOLUME 9.4 fL (7.2-11.7); MONO # 0.9 K/uL (0.0-0.8); MONO % 5.8 % (0.0-10.0); PLATELET COUNT 209 K/uL (130-400); RBC 4.55 Mil/uL (4.40-5.90); RED CELL DISTRIBUTION WIDTH 13.9 % (11.5-14.5); WHITE BLOOD COUNT 15.9 K/uL (4.8-10.8)
[2018-04-22 06:48] LABS: ALB/GLOB RATIO 1.6 (1.0-2.1); ALBUMIN 4.1 g/dL (3.5-5.0); ALT/SGPT 27 U/L (21-72); AST/SGOT 20 U/L (17-59); BLOOD UREA NITROGEN 27 mg/dL (9-20); CALCIUM 9.1 mg/dl (8.6-10.4); GFR NON-AFRICAN AMERICAN > 60
[2018-04-22] MEDS: Tiotropium 18 mcg Cap For Inhalation INH SCH (08:05)
[2018-04-22] MEDS: Fluticasone-Vilanterol 100/25mcg Diskus INH SCH (08:05)
[2018-04-22 08:10] LABS: LYMPHOCYTE 3 % (20-40); MONOCYTE 6 % (0-10); NEUTROPHIL 91 % (50-75); PLATELET ESTIMATE NORMAL (NORMAL); TOTAL CELLS COUNTED 100
[2018-04-22] MEDS: Saccharomyces Boulardi 250 mg Cap PO SCH ×2 (11:07→16:59)
[2018-04-22] MEDS: guaiFENesin 600 mg ER Tab PO SCH ×2 (11:11→16:59)
--- NOTE | 2018-04-22 12:43 | CP.PCM.PN ---
<Hema Santiago - Last Filed: 04/22/18 12:59> Subjective - Date & Time of Evaluation Date of Evaluation: 04/22/18 Time of Evaluation: 07:20 - Subjective Subjective: Patient is seen and examined at bedside. Patient reports his breathing has improved. Patient still complains of phlegm that is "stuck" in his throat. Patient reports the nebulizer treatment seems to help him. Patient continues to cough out yellowish colored phlegm but reports no blood in sputum. Patient is out of bed and sit in chair in the afternoons. Patient is eating well, denies nausea or vomiting. Patient denies fever, chills, chest pain, abdominal pain, diarrhea, constipation, dysuria or leg swelling. Objective - Vital Signs/Intake and Output Vital Signs (last 24 hours): Temp Pulse Resp BP Pulse Ox 97.7 F 89 21 167/93 H 99 04/22/18 08:08 04/22/18 08:08 04/22/18 08:08 04/22/18 08:08 04/22/18 08:08 - Medications Medications: Current Medications Acetylcysteine (Acetylcysteine 20%) 4 ml INH RQ6 [facility] Last Admin: 04/22/18 08:05 Dose: 4 ml Albuterol Sulfate (Albuterol 0.083% Inhal Tasneem (2.5 Mg/3 Ml) Ud) 2.5 mg INH RQ2 PRN PRN Reason: Shortness of Breath Albuterol/Ipratropium (Duoneb 3 Mg/0.5 Mg (3 Ml) Ud) 3 ml INH RQ4 [facility] Last Admin: 04/22/18 08:05 Dose: 3 ml Amlodipine Besylate (Norvasc) 10 mg PO DAILY [facility] Last Admin: 04/22/18 11:07 Dose: 10 mg Docusate Sodium (Colace) 100 mg PO BID [facility] Last Admin: 04/22/18 11:07 Dose: 100 mg Fluticasone/Vilanterol (Breo Ellipta 100-25 Mcg Inh) 1 puff INH RQ24 [facility] Last Admin: 04/22/18 08:05 Dose: 1 puff Guaifenesin (Mucinex La) 600 mg PO BID [facility] Last Admin: 04/22/18 11:11 Dose: 600 mg Heparin Sodium (Porcine) (Heparin) 5,000 units SC Q8 [facility] Last Admin: 04/22/18 05:35 Dose: 5,000 units Moxifloxacin HCl (Avelox Iv 400mg/250ml Ns) 400 mg in 250 mls @ 167 mls/hr IVPB Q24H [facility]; Protocol Last Admin: 04/21/18 17:20 Dose: 167 mls/hr Loratadine (Claritin) 10 mg PO DAILY [facility] Last Admin: 04/22/18 11:07 Dose: 10 mg Methylprednisolone (Solu-Medrol) 40 mg IV Q8H [facility] Last Admin: 04/22/18 05:36 Dose: 40 mg Nicotine (Nicoderm Cq) 1 patch TD DAILY [facility] Last Admin: 04/22/18 11:45 Dose: Not Given Pantoprazole Sodium (Protonix Inj) 40 mg IVP DAILY [facility] Last Admin: 04/22/18 11:08 Dose: 40 mg Saccharomyces Boulardii (Florastor) 250 mg PO BID [facility] Last Admin: 04/22/18 11:07 Dose: 250 mg Tiotropium [place] (Spiriva) 18 mcg INH RQ24 [facility] Last Admin: 04/22/18 08:05 Dose: 18 mcg - Labs Labs: 04/22/18 06:15 04/22/18 06:15 - Constitutional Appears: No Acute Distress - Head Exam Head Exam: ATRAUMATIC, NORMAL INSPECTION, NORMOCEPHALIC - Eye Exam Eye Exam: EOMI, Normal appearance - ENT Exam ENT Exam: Mucous Membranes Moist, Normal Exam - Neck Exam Neck Exam: Full ROM, Normal Inspection. absent: Lymphadenopathy - Respiratory Exam Respiratory Exam: Wheezes. absent: Accessory Muscle Use, Chest Wall Tenderness, Rales, Rhonchi, Respiratory Distress Additional comments: Bilateral expiratory wheezing on all lung lobes/segments. - Cardiovascular Exam Cardiovascular Exam: Tachycardia, REGULAR RHYTHM, +S1, +S2. absent: Diastolic murmur, Murmur - GI/Abdominal Exam GI & Abdominal Exam: Soft, Normal Bowel Sounds. absent: Bruit, Distended, Firm, Guarding, Tenderness, Rebound - Extremities Exam Extremities Exam: Full ROM, Normal Inspection. absent: Calf Tenderness, Joint Swelling, Pedal Edema, Tenderness - Back Exam Back Exam: Full ROM, NORMAL INSPECTION. absent: paraspinal tenderness, vertebral tenderness - Neurological Exam Neurological Exam: Alert, Awake, Oriented x3 - Psychiatric Exam Psychiatric exam: Normal Affect, Normal Mood - Skin Skin Exam: Dry, Intact, Normal Color, Warm <Shamika Rodrigez V - Last Filed: 04/22/18 21:45> Objective - Vital Signs/Intake and Output Vital Signs (last 24 hours): Temp Pulse Resp BP Pulse Ox 98.1 F 89 22 142/88 97 04/22/18 15:57 04/22/18 18:00 04/22/18 18:00 04/22/18 15:57 04/22/18 15:57 Intake and Output: 04/22/18 04/23/18 18:59 06:59 Intake Total 240 Balance 240 - Medications Medications: Current Medications Acetylcysteine (Acetylcysteine 20%) 4 ml INH RQ6 [facility] Last Admin: 04/22/18 20:00 Dose: 4 ml Albuterol Sulfate (Albuterol 0.083% Inhal Tasneem (2.5 Mg/3 Ml) Ud) 2.5 mg INH RQ2 PRN PRN Reason: Shortness of Breath Albuterol/Ipratropium (Duoneb 3 Mg/0.5 Mg (3 Ml) Ud) 3 ml INH RQ4 [facility] Last Admin: 04/22/18 20:00 Dose: 3 ml Amlodipine Besylate (Norvasc) 10 mg PO DAILY [facility] Last Admin: 04/22/18 11:07 Dose: 10 mg Docusate Sodium (Colace) 100 mg PO BID [facility] Last Admin: 04/22/18 16:59 Dose: 100 mg Fluticasone/Vilanterol (Breo Ellipta 100-25 Mcg Inh) 1 puff INH RQ24 [facility] Last Admin: 04/22/18 08:05 Dose: 1 puff Guaifenesin (Mucinex La) 600 mg PO BID [facility] Last Admin: 04/22/18 16:59 Dose: 600 mg Heparin Sodium (Porcine) (Heparin) 5,000 units SC Q8 [facility] Last Admin: 04/22/18 21:09 Dose: Not Given Moxifloxacin HCl (Avelox Iv 400mg/250ml Ns) 400 mg in 250 mls @ 167 mls/hr IVPB Q24H [facility]; Protocol Last Admin: 04/22/18 16:57 Dose: 167 mls/hr Influenza Virus Vaccine (Fluzone Quad [id number]) 60 mcg IM .ONCE ONE Stop: 04/24/18 10:01 Loratadine (Claritin) 10 mg PO DAILY [facility] Last Admin: 04/22/18 11:07 Dose: 10 mg Methylprednisolone (Solu-Medrol) 40 mg IV Q8H [facility] Last Admin: 04/22/18 19:17 Dose: 40 mg Nicotine (Nicoderm Cq) 1 patch TD DAILY [facility] Last Admin: 04/22/18 11:45 Dose: Not Given Pantoprazole Sodium (Protonix Inj) 40 mg IVP DAILY [facility] Last Admin: 04/22/18 11:08 Dose: 40 mg Saccharomyces Boulardii (Florastor) 250 mg PO BID [facility] Last Admin: 04/22/18 16:59 Dose: 250 mg Tiotropium [place] (Spiriva) 18 mcg INH RQ24 [facility] Last Admin: 04/22/18 08:05 Dose: 18 mcg - Labs Labs: 04/22/18 06:15 04/22/18 06:15 Attending/Attestation - Attestation I have personally seen and examined this patient.: Yes I have fully participated in the care of the patient.: Yes I have reviewed all pertinent clinical information, including history, physical exam and plan: Yes Notes (Text): Patient seen, examined, and case discussed with medical educator. Patient reports breathing is better, however, he continues to have difficulty expectorating productive phlegm. Patient has continuing expiratory wheezing. Patient provided noninvasive osteopathic manipulative therapy at bedside to relieve muscoskeletal restrictions around the lung cage to optimize his breathing and allow for him to cough up the productive sputum better. Patient's steroid taper down Solumedrol 40mg IV Q8H. Patient is on Duoneb Q4 and Mucomyst Q4 to dry out secretions. Patient remains on Breo Elliptica. Patient to continue IV Abx to cover for Mycoplasma pneumoniae IgM. Patient will need monitoring one more night to relieve his work of breathing and improve bronchial sounds. Assessment/Plan (1) COPD exacerbation Mycoplasma Pneumoniae Assessment/plan * Pulmonary (Dr. Finch) [employer]-->help appreciated * Abdominal Obstructive Series (04/19/18): unremarkable radiographs of chest and abdomen. No evidence of mechanical bowel obstruction. * Duonebs 3ml RQ 4hours * Mucomyst Q4H hours * Solumedrol 40mg IV Q8H * Protonix 40mg IV q daily * Avelox 400mg IV q daily (active since 04/19/18) * Mucinex 600mg PO BID * Loratadine 10mg PO daily * Spriva 18mcg inhaled daily * Breo-Ellipta 100-25mcg inhaled RQ24H (2) Pleuritic Chest Pain Assessment/plan * likely secondary to COPD exacerbation * cardiac risk factor: hypertension, male, former smoker * monitor on telemetry * SHADIA X3 negative * probnp within normal * d/c telemetry (3) Prior history of Umbilical hernia Assessment & Plan: * reducible (4) Constipation Assessment & Plan: * Start colace 100mg PO BID (5) GERD (gastroesophageal reflux disease) History of Gastritis Small hiatus Hernia Prior History of H pylori (2015) Assessment & Plan: * Protonix 40mg IV daily * Note: patient is a former smoker, and not been on PPi (6) Hypertension Assessment & Plan: * History of noncompliance * Norvasc 10mg Po daily * Monitor vital signs * Patient is on IV steroids which may contribute (7) Former Tobacco Abuse Assessment & Plan: * Nicoderm 1 patch daily (8) Prophylactic measure Assessment & Plan: * Protonix 40mg IVP daily for GI ppx * Heparin 5000 units subq 8 hours for DVT ppx * Colace 100mg PO bid * Florastor 250mg PO BID
[2018-04-22 15:58] VITALS: TEMP 98.1
[2018-04-22] MEDS: Moxifloxacin IV 400mg/250ml NS 400 MG/250 ML BAG IVPB SCH (16:57)
[2018-04-23] MEDS: Albuterol-Ipratrop 3 mg / 0.5 (3 ml) UD INH SCH ×4 (00:41→13:16)
[2018-04-23] MEDS: Acetylcysteine 20% Inhal Soln (4ml) INH SCH ×4 (00:41→13:16)
[2018-04-23 01:06] VITALS: RESP 20
[2018-04-23] MEDS: MethylPREDNISolone 40 mg Vial IV SCH ×2 (01:35→09:53)
[2018-04-23] MEDS: Fluticasone-Vilanterol 100/25mcg Diskus INH SCH (07:46)
[2018-04-23] MEDS: Tiotropium 18 mcg Cap For Inhalation INH SCH (07:47)
[2018-04-23 08:10] VITALS: BP 163/93; PULSE 84; O2SAT 97
[2018-04-23 08:47] LABS: BASO % 0.3 % (0.0-2.0); LYMPH # 0.5 K/uL (1.0-4.3); LYMPH % 4.1 % (20.0-40.0); MEAN CORPUSCULAR HEMOGLOBIN 30.6 pg (27.0-31.0); MEAN CORPUSCULAR HGB CONC 33.6 g/dL (33.0-37.0); MEAN PLATELET VOLUME 9.5 fL (7.2-11.7); MONO # 0.4 K/uL (0.0-0.8); MONO % 3.3 % (0.0-10.0); NEUT # 10.4 K/uL (1.8-7.0); NEUT % 92.3 % (50.0-75.0); PLATELET COUNT 212 K/uL (130-400); RBC 4.59 Mil/uL (4.40-5.90); WHITE BLOOD COUNT 11.3 K/uL (4.8-10.8)
[2018-04-23 08:58] LABS: ALB/GLOB RATIO 1.5 (1.0-2.1); ALBUMIN 3.8 g/dL (3.5-5.0); ALT/SGPT 24 U/L (21-72); AST/SGOT 21 U/L (17-59); BLOOD UREA NITROGEN 24 mg/dL (9-20); GFR NON-AFRICAN AMERICAN > 60
[2018-04-23] MEDS: Saccharomyces Boulardi 250 mg Cap PO SCH (09:53)
[2018-04-23] MEDS: guaiFENesin 600 mg ER Tab PO SCH (09:53)
[2018-04-23 10:16] LABS: LYMPHOCYTE 5 % (20-40); MONOCYTE 3 % (0-10); NEUTROPHIL 92 % (50-75); PLATELET ESTIMATE NORMAL (NORMAL); TOTAL CELLS COUNTED 100
--- NOTE | 2018-04-23 15:00 | CARD ---
APPROVED REPORT Date of service: 04/20/2018 EKG Measurement Heart [id number] <Conclusion> Normal sinus rhythm Nonspecific T wave abnormality Abnormal ECG
--- NOTE | 2018-04-23 15:00 | CARD ---
APPROVED REPORT Date of service: 04/20/2018 EKG Measurement Heart [id number] <Conclusion> Sinus tachycardia Nonspecific T wave abnormality Abnormal ECG
--- NOTE | 2018-04-23 21:47 | CP.PCM.DIS ---
<Anurag Candelario - Last Filed: 04/23/18 21:39> Provider - Provider Date of Admission: 04/22/18 16:42 Attending physician: Shamika Rodrigez DO Primary care physician: [facility] - Dr. Goldsmith Consults: Pulmonology - Dr. Finch Time Spent in preparation of Discharge (in minutes): 45 Diagnosis - Discharge Diagnosis (1) Chr obstructive pulmonary disease w/ acute lower respiratory infxn Status: Acute Hospital Course - Lab Results Lab Results: Most Recent Lab Values WBC 11.3 K/uL (4.8-10.8) H 04/23/18 08:33 RBC 4.59 Mil/uL (4.40-5.90) 04/23/18 08:33 Hgb 14.0 g/dL (12.0-18.0) 04/23/18 08:33 Hct 41.8 % (35.0-51.0) 04/23/18 08:33 MCV 91.0 fL (80.0-94.0) 04/23/18 08:33 MCH 30.6 pg (27.0-31.0) 04/23/18 08:33 MCHC 33.6 g/dL (33.0-37.0) 04/23/18 08:33 RDW 14.0 % (11.5-14.5) 04/23/18 08:33 Plt Count 212 K/uL (130-400) 04/23/18 08:33 MPV 9.5 fL (7.2-11.7) 04/23/18 08:33 Neut % (Auto) 92.3 % (50.0-75.0) H 04/23/18 08:33 Lymph % (Auto) 4.1 % (20.0-40.0) L 04/23/18 08:33 [place] % (Auto) 3.3 % (0.0-10.0) 04/23/18 08:33 Eos % (Auto) 0.0 % (0.0-4.0) 04/23/18 08:33 Baso % (Auto) 0.3 % (0.0-2.0) 04/23/18 08:33 Neut # (Auto) 10.4 K/uL (1.8-7.0) H 04/23/18 08:33 Lymph # (Auto) 0.5 K/uL (1.0-4.3) L 04/23/18 08:33 [place] # (Auto) 0.4 K/uL (0.0-0.8) 04/23/18 08:33 Eos # (Auto) 0.0 K/uL (0.0-0.7) 04/23/18 08:33 Baso # (Auto) 0.0 K/uL (0.0-0.2) 04/23/18 08:33 Neutrophils % (Manual) 92 % (50-75) H 04/23/18 08:33 Lymphocytes % (Manual) 5 % (20-40) L 04/23/18 08:33 Monocytes % (Manual) 3 % (0-10) 04/23/18 08:33 Platelet Estimate Normal (NORMAL) 04/23/18 08:33 RBC Morphology Normal 04/23/18 08:33 Sodium 138 mmol/L (132-148) 04/23/18 08:33 Potassium 4.2 mmol/L (3.6-5.2) 04/23/18 08:33 Chloride 100 mmol/L (98-107) 04/23/18 08:33 Carbon Dioxide 27 mmol/L (22-30) 04/23/18 08:33 Anion Gap 15 (10-20) 04/23/18 08:33 BUN 24 mg/dL (9-20) H 04/23/18 08:33 Creatinine 0.8 mg/dL (0.8-1.5) 04/23/18 08:33 Est GFR ( Amer) > 60 04/23/18 08:33 Est GFR (Non-Af Amer) > 60 04/23/18 08:33 POC Glucose (mg/dL) 180 mg/dL (65-110) H 04/20/18 09:18 Random Glucose 123 mg/dL (75-110) H 04/23/18 08:33 Calcium 9.0 mg/dl (8.6-10.4) 04/23/18 08:33 Phosphorus 4.4 mg/dL (2.5-4.5) 04/23/18 08:33 Magnesium 2.1 mg/dL (1.6-2.3) 04/23/18 08:33 Total Bilirubin 0.6 mg/dL (0.2-1.3) 04/23/18 08:33 AST 21 U/L (17-59) 04/23/18 08:33 ALT 24 U/L (21-72) 04/23/18 08:33 Alkaline Phosphatase 72 U/L (38-126) 04/23/18 08:33 Total Creatine Kinase 197 U/L (55-170) H 04/20/18 00:36 CK-MB (Mass) 1.96 ng/mL (0.0-3.38) 04/20/18 00:36 Troponin I < 0.0120 ng/mL (0.00-0.120) 04/20/18 09:31 NT-Pro-B Natriuret Pep 105 pg/mL (0-900) 04/19/18 12:45 Total Protein 6.3 g/dL (6.3-8.3) 04/23/18 08:33 Albumin 3.8 g/dL (3.5-5.0) 04/23/18 08:33 Globulin 2.5 gm/dL (2.2-3.9) 04/23/18 08:33 Albumin/Globulin Ratio 1.5 (1.0-2.1) 04/23/18 08:33 Urine Color Straw (YELLOW) 04/19/18 14:27 Urine Clarity Clear (Clear) 04/19/18 14:27 Urine pH 7.0 (5.0-8.0) 04/19/18 14:27 Ur Specific Lenore 1.005 (1.003-1.030) 04/19/18 14:27 Urine Protein Negative mg/dL (NEGATIVE) 04/19/18 14:27 Urine Glucose (UA) Normal mg/dL (Normal) 04/19/18 14:27 Urine Ketones Negative mg/dL (NEGATIVE) 04/19/18 14:27 Urine Blood 1+ (NEGATIVE) H 04/19/18 14:27 Urine Nitrate Negative (NEGATIVE) 04/19/18 14:27 Urine Bilirubin Negative (NEGATIVE) 04/19/18 14:27 Urine Urobilinogen Normal mg/dL (0.2-1.0) 04/19/18 14:27 Ur Leukocyte Esterase Neg Nicholas/uL (Negative) 04/19/18 14:27 Urine WBC (Auto) < 1 /hpf (0-5) 04/19/18 14:27 Urine RBC (Auto) 2 /hpf (0-3) 04/19/18 14:27 Urine Opiates Screen Negative (NEGATIVE) 04/19/18 14:27 Urine Methadone Screen Negative (NEGATIVE) 04/19/18 14:27 Ur Barbiturates Screen Negative (NEGATIVE) 04/19/18 14:27 Ur Phencyclidine Scrn Negative (NEGATIVE) 04/19/18 14:27 Ur Amphetamines Screen Negative (NEGATIVE) 04/19/18 14:27 U Benzodiazepines Scrn Negative (NEGATIVE) 04/19/18 14:27 U Oth Cocaine Metabols Negative (NEGATIVE) 04/19/18 14:27 U Cannabinoids Screen Negative (NEGATIVE) 04/19/18 14:27 Alcohol, Quantitative < 10 mg/dl (0-10) 04/19/18 12:45 H.influenzae Type B Ag Negative (NEGATIVE) 04/19/18 Unknown Ur L.pneumophila Ag Negative (NEGATIVE) 04/19/18 Unknown Mycoplasma pneumon IgG 1.77 (<=0.90) H 04/19/18 21:44 Mycoplasma pneumon IgM 216 U/mL (<770) 04/19/18 21:44 N.meningitidis ACY/W135 Negative (NEGATIVE) 04/19/18 Unknown N.meningi B/E.coli K1 Ag Negative (NEGATIVE) 04/19/18 Unknown Group B Strep Antigen Negative (NEGATIVE) 04/19/18 Unknown S. pneumoniae Antigen Negative (NEGATIVE) 04/19/18 Unknown - Hospital Course Hospital Course: Medicine Discharge Summary for Hospitalist Service 62 year old male w/ a PMHx of uncontrolled asthma, HTN, and gastritis who presented to the ED on 04/19/18 with complaints of progressive SOB and cough, productive of yellow sputum, over the past 2 weeks. Patient reported he has had this severity of symptoms before requiring hospital admission as he is non compliant with his medications due to financial constraints. Patient denied any fevers or chills, sick contacts, chest pain, diarrhea or constipation. Patient also reported of increasing abdominal pain over the past 1 month. He reported left sided post prandial pain abdominal pain associated with NBNB emesis consisting of food, approximately 1x day. Patient also reported midline abdominal pain/burning from umbilicus to epigastrum, pain is worse post prandial, and pt reports is consistent w/ his previous diagnosis of gastritis. Pt was admitted for COPD exacerbation secondary to extensive smoking hx and non- compliance with medications. Work-up on labs demonstrated pt was positive for Mycoplasma IgM, and pt was treated with Avalox. Pt's COPD medications were titrated during admission with steroids, mucomyst, mucinex, loratadine, spiriva, and Breo-Ellipta. Chest pain on admission was likely 2/2 to COPD exacerbation, SHADIA x3 were negative. Pt's hypertension was monitored and titrated as appropriate and pt was also given protonix for his GERD, gastritis, and hx hiatal hernia. Pt was discharged to home in stable condition on 04/23/18, and was instructed to follow-up with his PCP within 1 week of discharge for referral to manager mutual fund for management of his COPD. Pt was given voucher for reduced cost of medications on discharge due to pt stating he was unable to fruit or nut picker his medications and take them in the past. Pt was also instructed to take Avalox to complete 7 days of antibiotic therapy for Mycoplasma PNA. Discharge Exam - Head Exam Head Exam: ATRAUMATIC, NORMAL INSPECTION, NORMOCEPHALIC - Eye Exam Eye Exam: EOMI, Normal appearance, PERRL - ENT Exam ENT Exam: Mucous Membranes Moist - Respiratory Exam Respiratory Exam: NORMAL BREATHING PATTERN Additional comments: Minimal wheezing on exam in all lung warner - Cardiovascular Exam Cardiovascular Exam: REGULAR RHYTHM, +S1, +S2. absent: Gallop, Rubs, Systolic Murmur - GI/Abdominal Exam GI & Abdominal Exam: Normal Bowel Sounds, Soft, Unremarkable. absent: Tenderness - Extremities Exam Extremities exam: full ROM, normal capillary refill, normal inspection, pedal pulses present - Neurological Exam Neurological exam: Alert, CN II-XII Intact, Normal Gait, Oriented x3, Reflexes Normal - Skin Skin Exam: Dry, Intact, Normal Color, Warm Discharge Plan - Discharge Medications Prescriptions: Albuterol Sulfate [Proair Hfa] 0.09 mg IH PRN PRN #1 inh PRN Reason: Shortness Of Breath amLODIPine [Norvasc] 10 mg PO DAILY #30 tab Famotidine [Pepcid] 20 mg PO BID #60 tab Fluticasone/Vilanterol 100/25 [Breo Ellipta 100-25 MCG INH] 1 puff INH RQ24 #1 puff guaiFENesin [Mucinex LA] 600 mg PO BID #30 tab Methylprednisolone [Medrol Dose Pack (21 tabs)] See Taper PO DAILY #21 mg Moxifloxacin [Avelox] 600 mg PO BID #4 tab Tiotropium [Spiriva] 18 mcg INH RQ24 #30 cap - Follow Up Plan Condition: STABLE Disposition: HOME/ ROUTINE Instructions: Asthma, Adult (DC), Acid Reflux (Gastroesophageal Reflux Disease), Adult (DC), Exacerbation of COPD (DC) Additional Instructions: Patient medically stable for discharge. Please follow-up with your primary care physician (Dr. Goldsmith, [facility]) within 1 week of discharge. Please take antibiotics as prescribed for the next 2 days. Please take Medrol dose pack as prescribed and follow instructions for total of 21 days of therapy. Please note changes in medications for your COPD treatment. Please fruit or nut picker medications at pharmacy. Please quit smoking and avoid alcohol use. Should symptoms recur or worsen, please call your primary care physician or report to your nearest emergency department. Referrals: Jenae Goldsmith MD [Staff Provider] - <Shamika Rodrigez V - Last Filed: 04/24/18 17:01> Provider - Provider Date of Admission: 04/22/18 16:42 Attending physician: Shamika Rodrigez DO Diagnosis - Discharge Diagnosis (1) COPD exacerbation Status: Acute Comment: Stable for discharge. Patient provided voucher to offset cost of medications includin) Albuterol HFA 1 puff q4H PRN SOB. 2) Breo Elltipa use as directed. 3) Medrol dose pack. 4) Pepcid 20mg PO BID (1 month/1 refill) as GI ppx. 5) Mucinex 600mg PO BID. Tobacco cessation which patient reports he does not do was provided (2) Mycoplasma pneumonia Status: Acute Comment: Serology IgM positive. Patient given Avelox since start of admission. Patient completed 5 days in patient. Patient discharge on Avelox 400mg 1 tab once a day for 2 more days to complete treament. (3) Hypertension Status: Chronic Comment: Patient given prescription for Norvasc for blood pressure management. Patient will need repeat blood pressure when he follows up in the clinic Hospital Course - Lab Results Lab Results: Most Recent Lab Values WBC 11.3 K/uL (4.8-10.8) H 04/23/18 08:33 RBC 4.59 Mil/uL (4.40-5.90) 04/23/18 08:33 Hgb 14.0 g/dL (12.0-18.0) 04/23/18 08:33 Hct 41.8 % (35.0-51.0) 04/23/18 08:33 MCV 91.0 fL (80.0-94.0) 04/23/18 08:33 MCH 30.6 pg (27.0-31.0) 04/23/18 08:33 MCHC 33.6 g/dL (33.0-37.0) 04/23/18 08:33 RDW 14.0 % (11.5-14.5) 04/23/18 08:33 Plt Count 212 K/uL (130-400) 04/23/18 08:33 MPV 9.5 fL (7.2-11.7) 04/23/18 08:33 Neut % (Auto) 92.3 % (50.0-75.0) H 04/23/18 08:33 Lymph % (Auto) 4.1 % (20.0-40.0) L 04/23/18 08:33 [place] % (Auto) 3.3 % (0.0-10.0) 04/23/18 08:33 Eos % (Auto) 0.0 % (0.0-4.0) 04/23/18 08:33 Baso % (Auto) 0.3 % (0.0-2.0) 04/23/18 08:33 Neut # (Auto) 10.4 K/uL (1.8-7.0) H 04/23/18 08:33 Lymph # (Auto) 0.5 K/uL (1.0-4.3) L 04/23/18 08:33 [place] # (Auto) 0.4 K/uL (0.0-0.8) 04/23/18 08:33 Eos # (Auto) 0.0 K/uL (0.0-0.7) 04/23/18 08:33 Baso # (Auto) 0.0 K/uL (0.0-0.2) 04/23/18 08:33 Neutrophils % (Manual) 92 % (50-75) H 04/23/18 08:33 Lymphocytes % (Manual) 5 % (20-40) L 04/23/18 08:33 Monocytes % (Manual) 3 % (0-10) 04/23/18 08:33 Platelet Estimate Normal (NORMAL) 04/23/18 08:33 RBC Morphology Normal 04/23/18 08:33 Sodium 138 mmol/L (132-148) 04/23/18 08:33 Potassium 4.2 mmol/L (3.6-5.2) 04/23/18 08:33 Chloride 100 mmol/L (98-107) 04/23/18 08:33 Carbon Dioxide 27 mmol/L (22-30) 04/23/18 08:33 Anion Gap 15 (10-20) 04/23/18 08:33 BUN 24 mg/dL (9-20) H 04/23/18 08:33 Creatinine 0.8 mg/dL (0.8-1.5) 04/23/18 08:33 Est GFR ( Amer) > 60 04/23/18 08:33 Est GFR (Non-Af Amer) > 60 04/23/18 08:33 POC Glucose (mg/dL) 180 mg/dL (65-110) H 04/20/18 09:18 Random Glucose 123 mg/dL (75-110) H 04/23/18 08:33 Calcium 9.0 mg/dl (8.6-10.4) 04/23/18 08:33 Phosphorus 4.4 mg/dL (2.5-4.5) 04/23/18 08:33 Magnesium 2.1 mg/dL (1.6-2.3) 04/23/18 08:33 Total Bilirubin 0.6 mg/dL (0.2-1.3) 04/23/18 08:33 AST 21 U/L (17-59) 04/23/18 08:33 ALT 24 U/L (21-72) 04/23/18 08:33 Alkaline Phosphatase 72 U/L (38-126) 04/23/18 08:33 Total Creatine Kinase 197 U/L (55-170) H 04/20/18 00:36 CK-MB (Mass) 1.96 ng/mL (0.0-3.38) 04/20/18 00:36 Troponin I < 0.0120 ng/mL (0.00-0.120) 04/20/18 09:31 NT-Pro-B Natriuret Pep 105 pg/mL (0-900) 04/19/18 12:45 Total Protein 6.3 g/dL (6.3-8.3) 04/23/18 08:33 Albumin 3.8 g/dL (3.5-5.0) 04/23/18 08:33 Globulin 2.5 gm/dL (2.2-3.9) 04/23/18 08:33 Albumin/Globulin Ratio 1.5 (1.0-2.1) 04/23/18 08:33 Urine Color Straw (YELLOW) 04/19/18 14:27 Urine Clarity Clear (Clear) 04/19/18 14:27 Urine pH 7.0 (5.0-8.0) 04/19/18 14:27 Ur Specific [place] 1.005 (1.003-1.030) 04/19/18 14:27 Urine Protein Negative mg/dL (NEGATIVE) 04/19/18 14:27 Urine Glucose (UA) Normal mg/dL (Normal) 04/19/18 14:27 Urine Ketones Negative mg/dL (NEGATIVE) 04/19/18 14:27 Urine Blood 1+ (NEGATIVE) H 04/19/18 14:27 Urine Nitrate Negative (NEGATIVE) 04/19/18 14:27 Urine Bilirubin Negative (NEGATIVE) 04/19/18 14:27 Urine Urobilinogen Normal mg/dL (0.2-1.0) 04/19/18 14:27 Ur Leukocyte Esterase Neg Nicholas/uL (Negative) 04/19/18 14:27 Urine WBC (Auto) < 1 /hpf (0-5) 04/19/18 14:27 Urine RBC (Auto) 2 /hpf (0-3) 04/19/18 14:27 Urine Opiates Screen Negative (NEGATIVE) 04/19/18 14:27 Urine Methadone Screen Negative (NEGATIVE) 04/19/18 14:27 Ur Barbiturates Screen Negative (NEGATIVE) 04/19/18 14:27 Ur Phencyclidine Scrn Negative (NEGATIVE) 04/19/18 14:27 Ur Amphetamines Screen Negative (NEGATIVE) 04/19/18 14:27 U Benzodiazepines Scrn Negative (NEGATIVE) 04/19/18 14:27 U Oth Cocaine Metabols Negative (NEGATIVE) 04/19/18 14:27 U Cannabinoids Screen Negative (NEGATIVE) 04/19/18 14:27 Alcohol, Quantitative < 10 mg/dl (0-10) 04/19/18 12:45 H.influenzae Type B Ag Negative (NEGATIVE) 04/19/18 Unknown Ur L.pneumophila Ag Negative (NEGATIVE) 04/19/18 Unknown Mycoplasma pneumon IgG 1.77 (<=0.90) H 04/19/18 21:44 Mycoplasma pneumon IgM 216 U/mL (<770) 04/19/18 21:44 N.meningitidis ACY/W135 Negative (NEGATIVE) 04/19/18 Unknown N.meningi B/E.coli K1 Ag Negative (NEGATIVE) 04/19/18 Unknown Group B Strep Antigen Negative (NEGATIVE) 04/19/18 Unknown S. pneumoniae Antigen Negative (NEGATIVE) 04/19/18 Unknown Attending/Attestation - Attestation I have personally seen and examined this patient.: Yes I have fully participated in the care of the patient.: Yes I have reviewed all pertinent clinical information, including history, physical exam and plan: Yes Notes (Text): This is a late computer entry for 04/23/2018. Patient seen, examined, case discussed with medical device sales consultant. Patient reports he is feeling better and that he is able to breathe better and cough up secretions better. On lung exam patient does have improved lung sounds. We did emphasize with patient that is important to be compliant on medications. Discussed with pulmonary recommended in addition to nebulizers Medrol Dosepak on discharge. Discharge instructions include: Patient recommended to follow-up with [facility] upon discharge. Patient provided voucher to help discount medications upon discharge. Medications upon discharge include: * Albuterol HFA 1 puff inhaled every 4 hours as needed 1 inhaler dispense * Breo Elliptica * Medrol Dosepak * Pepcid 20 mg by mouth twice a day 1 month supply with 1 refill * Avelox 400 mg once a day 2 more tabs and then stop * Mucinex 600 mg by mouth twice a day which is available [id number] * Norvasc 10 mg once a day Patient recommended to continue cessation of smoking. This is a summary of patient's hospitalization. Please see EMR for full detail record. Discharge diagnoses: (1) COPD exacerbation resolved Mycoplasma Pneumoniae able Assessment/plan * Pulmonary (Dr. Finch) radio control crane operator-->help appreciated * Abdominal Obstructive Series (04/19/18): unremarkable radiographs of chest and abdomen. No evidence of mechanical bowel obstruction. During hospitalization patient received the following: * Duonebs 3ml RQ 4hours switched to albuterol HFA 1 puff every 4 when necessary as needed * Mucomyst Q4H hours * Solumedrol 40mg IV Q8H discharged on Medrol Dosepak * Protonix 40mg IV q daily * Avelox 400mg IV q daily (active since 04/19/18) to complete on April 25 * Mucinex 600mg PO BID * Loratadine 10mg PO daily * Spriva 18mcg inhaled daily * Breo-Ellipta 100-25mcg inhaled RQ24H (2) Pleuritic Chest Pain resolved Assessment/plan * likely secondary to COPD exacerbation * cardiac risk factor: hypertension, male, former smoker * monitor on telemetry * SHADIA X3 negative * probnp within normal * d/c telemetry (3) Prior history of Umbilical hernia chronic Assessment & Plan: * reducible (4) Constipation resolved Assessment & Plan: * Start colace 100mg PO BID (5) GERD (gastroesophageal reflux disease) chronic History of Gastritis chronic Small hiatus Hernia Prior History of H pylori (2016) Assessment & Plan: * Protonix 40mg IV daily * Note: patient is a former smoker, and not been on PPi (6) Hypertension chronic Assessment & Plan: * History of noncompliance * Norvasc 10mg Po daily * Monitor vital signs * Patient is on IV steroids which may contribute (7) Former Tobacco Abuse Assessment & Plan: * Nicoderm 1 patch daily (8) Prophylactic measure Assessment & Plan: * Protonix 40mg IVP daily for GI ppx * Heparin 5000 units subq 8 hours for DVT ppx * Colace 100mg PO bid * Florastor 250mg PO BID
[2018-04-24] MEDS ORDERED: Influenza Vaccine 60 MCG/0.5 ML SYR (3 yr & up) IM ONE (10:00)
== END 2018-04-23 14:46 | disposition home or self-care (01) | DRG 541 ==
LOC: C.ER 09:28 → C.9E 13:41 → C.5S 15:51 → C.9E 16:42 → OBSVTOIN 04-22 16:42
PROVIDERS: ADMIT Hospitalist; ATTEND Hospitalist
DX: J44.0 Chronic obstructive pulmonary disease with (acute) lower respiratory infection (principal); J15.7 Pneumonia due to Mycoplasma pneumoniae; J45.902 Unspecified asthma with status asthmaticus; J44.1 Chronic obstructive pulmonary disease with (acute) exacerbation; R07.81 Pleurodynia; I10 Essential (primary) hypertension; K21.9 Gastro-esophageal reflux disease without esophagitis; K29.70 Gastritis, unspecified, without bleeding; K42.9 Umbilical hernia without obstruction or gangrene; K44.9 Diaphragmatic hernia without obstruction or gangrene; K59.00 Constipation, unspecified; Z79.899 Other long term (current) drug therapy; Z80.3 Family history of malignant neoplasm of breast; Z86.19 Personal history of other infectious and parasitic diseases; Z87.891 Personal history of nicotine dependence; Z91.14 Patient's other noncompliance with medication regimen

== ENCOUNTER 2018-06-07 11:29 | Emergency (ER) | payer OTHER ==
--- NOTE | 2018-06-07 13:18 | C.PDOC ---
History Of Present Illness Patient with a PMHx of asthma reports 1 week history of cough which is associated with wheezing and shortness of breath. Patient reports that he ran out of his albuterol at home. Denies fever, rash, hemoptysis, numbness, weakness, chest pain. Time Seen by Provider: 06/07/18 12:40 Chief Complaint (Nursing): Shortness Of Breath History Per: Patient History/Exam Limitations: no limitations Onset/Duration Of Symptoms: Days Current Symptoms Are (Timing): Still Present Past Medical History Reviewed: Historical Data, Nursing Documentation, Vital Signs Vital Signs: Last Vital Signs Temp 98.3 F 06/07/18 11:36 Pulse 89 06/07/18 11:36 Resp 28 H 06/07/18 11:36 BP 172/118 H 06/07/18 11:36 Pulse Ox 96 06/07/18 11:36 - Medical History PMH: Asthma, COPD (ASTHMA), Gastritis, HTN Denies: Chronic Kidney Disease Surgical History: Endoscopy - [facility] Procedures EXCISION OF SMALL INTESTINE, ENDO, DIAGN (06/17/16) Family History: States: Unknown Family Hx - Social History Hx Tobacco Use: No Hx Alcohol Use: Yes Hx Substance Use: No - Immunization History Hx Tetanus Toxoid Vaccination: No Hx Influenza Vaccination: No Hx Pneumococcal Vaccination: No Review Of Systems Except As Marked, All Systems Reviewed And Found Negative. Constitutional: Negative for: Fever, Chills Cardiovascular: Negative for: Chest Pain Respiratory: Positive for: Cough, Shortness of Breath, Wheezing Gastrointestinal: Negative for: Nausea, Vomiting Neurological: Negative for: Weakness, Numbness Physical Exam - Physical Exam Appears: Non-toxic, No Acute Distress Skin: Warm, Dry, No Rash Head: Atraumatic, Normacephalic Eye(s): bilateral: Normal Inspection, PERRL, EOMI Ear(s): Bilateral: Normal Oral Mucosa: Moist Throat: Normal, No Erythema, No Exudate Neck: Normal ROM, Supple Chest: Symmetrical, No Deformity, No Tenderness Cardiovascular: Rhythm Regular, No Murmur Respiratory: No Rales, No Rhonchi, Wheezing (moderate bilateral expiratory wheezing) Gastrointestinal/Abdominal: Soft, No Tenderness, No Distention Extremity: Normal ROM, No Tenderness, No Swelling Extremity: Bilateral: Atraumatic, Normal Color And Temperature, Normal ROM Neurological/Psych: Oriented x3, Normal Speech Gait: Steady ED Course And Treatment O2 Sat by Pulse Oximetry: 96 (RA) Pulse Ox Interpretation: Normal - Other Rad CXR X-Ray: Read By Radiologist Interpretation: Accession No. : [id number]. Patient Name / ID : MARCELO GARNER / [id number]. Exam Date : 06/07/2018 13:28:51 ( Approved ). Study Comment : Sex / Age : M / 62Y. Creator : Armando Ceron MD. Dictator : Armando Ceron MD. Waste Minimization Technician : Casing Sewer : Armando Ceron MD. Approver2 : Report Date : 06/07/2018 13:53:05. My Comment : . Date of service: 06/07/2018. HISTORY: cough, fever. COMPARISON: Comparison made with prior study 04/21/2018. FINDINGS: LUNGS: Mild left basilar atelectasis and or scarring. PLEURA: No significant pleural effusion identified, no pneumothorax apparent. CARDIOVASCULAR: Minor aortic atherosclerotic calcification present. Normal cardiac size. No pulmonary vascular congestion. OSSEOUS STRUCTURES: No significant abnormalities. VISUALIZED UPPER ABDOMEN: Normal. OTHER FINDINGS: None. IMPRESSION: Basilar atelectasis and/or scarring Medical Decision Making Medical Decision Making: Plan: --Chest x-ray --Solu-medrol 80 mg IM --Duoneb nebulizer x1 --Peak flow pre/post neb --Reassess On re-exam, the patient reports improvement of symptoms. Lungs are CTA, heart is RRR, abdomen is soft, non-tender and the patient is tolerating PO well. Ambulatory in the ED with steady gait. Follow up with the medical doctor within 1-2 days without fail. Return if worsened. Disposition - Disposition Referrals: at [facility] [Outside] Disposition: HOME/ ROUTINE Disposition Time: 14:40 Condition: IMPROVED Additional Instructions: Follow up with the medical doctor within 1-2 days without fail. Return if worsened. Prescriptions: Albuterol 0.5% [Albuterol 0.5% Inhal Tasneem (2.5 mg/0.5 ml) UD] 0.5 ml IH Q6 PRN #20 neb PRN Reason: Wheezing Albuterol HFA [Ventolin HFA 90 mcg/actuation (8 g)] 1 puff IH Q6 #100 puff predniSONE [Prednisone] 20 mg PO BID #10 tab Instructions: Asthma in Adults Forms: [facility] (Romansh) Print Language: ESTONIAN - Clinical Impression Clinical Impression: Asthma exacerbation, Bronchitis - PA / JOURNALISM TEACHER / Resident Statement MD/DO has reviewed & agrees with the documentation as recorded. - Scribe Statement The provider has reviewed the documentation as recorded by the Scribe (Shonna Rosario) All medical record entries made by the Scribe were at my direction and personally dictated by me. I have reviewed the chart and agree that the record accurately reflects my personal performance of the history, physical exam, medical decision making, and the department course for this patient. I have also personally directed, reviewed, and agree with the discharge instructions and disposition.
[2018-06-07] MEDS ORDERED: Albuterol-Ipratrop 3 mg / 0.5 (3 ml) UD ONE (13:21)
[2018-06-07] MEDS: Albuterol-Ipratrop 3 mg / 0.5 (3 ml) UD IH SCH ×3 (13:30→14:00)
[2018-06-07 13:39] VITALS: RESP 18
--- NOTE | 2018-06-07 13:56 | RAD ---
Date of service: 06/07/2018 HISTORY: cough, fever COMPARISON: Comparison made with prior study 04/21/2018. FINDINGS: LUNGS: Mild left basilar atelectasis and or scarring PLEURA: No significant pleural effusion identified, no pneumothorax apparent. CARDIOVASCULAR: Minor aortic atherosclerotic calcification present. Normal cardiac size. No pulmonary vascular congestion. OSSEOUS STRUCTURES: No significant abnormalities. VISUALIZED UPPER ABDOMEN: Normal. OTHER FINDINGS: None. IMPRESSION: Basilar atelectasis and/or scarring
[2018-06-07] MEDS ORDERED: MethylPREDNISolone 40 mg Vial IM STA (14:29)
[2018-06-07] MEDS ORDERED: MethylPREDNISolone 40 mg Vial ONE (14:35)
[2018-06-07 15:04] VITALS: BP 160/79; PULSE 78; TEMP 98
[2018-06-07 15:35] VITALS: O2SAT 96
== END 2018-06-07 15:03 | disposition home or self-care (01) ==
LOC: C.ER 11:29
DX: J45.901 Unspecified asthma with (acute) exacerbation (principal); I10 Essential (primary) hypertension
CPT/HCPCS: 71045; 96372; 99284; J2920

== ENCOUNTER 2018-06-16 21:56 | Observation (INO) | payer SELFPAY ==
--- NOTE | 2018-06-16 22:18 | C.PDOC ---
History Of Present Illness 62 y/o male with a PMHx of HTN and asthma presents via ambulance for complaints of shortness of breath worsening since this morning. Associated with a mild cough. Patient reports using his inhaler at home without relief. Admits to prior hospitalizations for asthma, but no intubations. Otherwise patient denies any fever, chills, night sweats, nausea, vomiting, diarrhea, abd pain, leg pain/swelling, weakness, or dizziness. He received solu-medrol and duoneb in the field prior to ED evaluation. Patient notes current symptoms are similar to previous asthma exacerbation. no home o2. Time Seen by Provider: 06/16/18 22:27 Chief Complaint (Nursing): Respiratory Distress History Per: Patient History/Exam Limitations: no limitations Onset/Duration Of Symptoms: Days Current Symptoms Are (Timing): Still Present Initiating Event: Upper Respiratory Illness Quality: Tightness Past Medical History Reviewed: Historical Data, Nursing Documentation, Vital Signs Vital Signs: Last Vital Signs Temp 99.4 F 06/16/18 22:03 Pulse 100 H 06/16/18 22:03 Resp 20 06/16/18 22:03 BP 163/104 H 06/16/18 22:03 Pulse Ox 97 06/16/18 22:03 - Medical History PMH: Asthma, COPD (ASTHMA), Gastritis, HTN Denies: Chronic Kidney Disease Surgical History: Endoscopy - [facility] Procedures EXCISION OF SMALL INTESTINE, ENDO, DIAGN (06/17/16) Family History: States: Unknown Family Hx - Social History Hx Tobacco Use: No Hx Alcohol Use: Yes Hx Substance Use: No - Immunization History Hx Tetanus Toxoid Vaccination: No Hx Influenza Vaccination: No Hx Pneumococcal Vaccination: No Review Of Systems Constitutional: Negative for: Fever, Chills, Sweats Eyes: Negative for: Vision Change Cardiovascular: Negative for: Chest Pain, Palpitations Respiratory: Positive for: Cough, Shortness of Breath, Wheezing. Negative for: SOB with Excertion Gastrointestinal: Negative for: Nausea, Vomiting, Abdominal Pain, Diarrhea Neurological: Negative for: Weakness, Numbness, Headache, Dizziness Physical Exam - Physical Exam Appears: Non-toxic, No Acute Distress, Other (Speaking in complete sentences) Skin: Warm, Dry Head: Normacephalic Eye(s): bilateral: Normal Inspection, PERRL, EOMI Oral Mucosa: Moist Neck: Trachea Midline, Supple, Other (No meningeal signs- negative kernig's and brudzinskis) Chest: Symmetrical Cardiovascular: Rhythm Regular, Other (no rub) Respiratory: No Accessory Muscle Use, No Rales, No Rhonchi, Wheezing (bilateral, mild), Other (No respiratory distress) Gastrointestinal/Abdominal: Soft, No Tenderness, No Distention Back: Normal Inspection, No CVA Tenderness Extremity: Bilateral: No Pedal Edema, Normal Color And Temperature Pulses: Left Dorsalis Pedis: Normal, Right Dorsalis Pedis: Normal Neurological/Psych: Oriented x3, Normal Speech, Normal Cranial Nerves Gait: Steady ED Course And Treatment - Laboratory Results Result Diagrams: 06/16/18 22:43 06/16/18 22:43 O2 Sat by Pulse Oximetry: 97 (on RA) Pulse Ox Interpretation: Normal Medical Decision Making Medical Decision Makin62 y/o M with PMHx of asthma p/w cough and SOB worsened today, no relief with inhaler, + prior hospitalization for asthma but no hx intubation. No chest pain. Plan: Labs EKG Chest x-ray Duoneb nebulizer x2 2252 EK, NSR, No STemi 2256 speaking full sentences w/ out distress mild bibasilar wheezes ordered Mag 1 gram: will likely require obs for continued wheezing pending XR, labs pt otherwise in NAD 2330 labs largely unremakrable xray unremarkable continued mild wheezes- pt speaking in full sentences however and in NAD consulted Dr. Troy ()- to admit to his service pt agreeable Disposition - Disposition Disposition Time: 23:34 Condition: GOOD Forms: [facility] (Slovenian) - Clinical Impression Clinical Impression: Exacerbation of asthma - Scribe Statement The provider has reviewed the documentation as recorded by the Scribe (Shonna Rosario) Provider Attestation: All medical record entries made by the Scribe were at my direction and personally dictated by me. I have reviewed the chart and agree that the record accurately reflects my personal performance of the history, physical exam, medical decision making, and the department course for this patient. I have also personally directed, reviewed, and agree with the discharge instructions and disposition.
[2018-06-16] MEDS ORDERED: Albuterol-Ipratrop 3 mg / 0.5 (3 ml) UD INH STA (22:25)
[2018-06-16] MEDS ORDERED: Albuterol-Ipratrop 3 mg / 0.5 (3 ml) UD ONE (22:29)
[2018-06-16 22:46] LABS: BASO # 0.1 K/uL (0.0-0.2); BASO % 0.9 % (0.0-2.0); EOS # 1.1 K/uL (0.0-0.7); EOS % 16.6 % (0.0-4.0); HEMOGLOBIN 14.3 g/dL (12.0-18.0); LYMPH # 1.2 K/uL (1.0-4.3); LYMPH % 17.1 % (20.0-40.0); MEAN CELL VOLUME 91.1 fL (80.0-94.0); MEAN CORPUSCULAR HEMOGLOBIN 31.1 pg (27.0-31.0); MEAN CORPUSCULAR HGB CONC 34.2 g/dL (33.0-37.0); MEAN PLATELET VOLUME 8.5 fL (7.2-11.7); MONO # 0.7 K/uL (0.0-0.8); MONO % 10.6 % (0.0-10.0); NEUT # 3.7 K/uL (1.8-7.0); NEUT % 54.8 % (50.0-75.0); NRBC % 0.1 % (0.0-2.0); RBC 4.61 Mil/uL (4.40-5.90); RED CELL DISTRIBUTION WIDTH 14.2 % (11.5-14.5); WHITE BLOOD COUNT 6.7 K/uL (4.8-10.8)
[2018-06-16] MEDS ORDERED: Magnesium Sulfate 1 gm in D5W 1 GM/100 ML BAG IVPB ONE ×2 (22:52→23:04)
[2018-06-16 23:01] LABS: ALB/GLOB RATIO 1.8 (1.0-2.1); ALT/SGPT 26 U/L (21-72); AST/SGOT 29 U/L (17-59); BLOOD UREA NITROGEN 25 mg/dL (9-20); CALCIUM 8.1 mg/dl (8.6-10.4); GFR NON-AFRICAN AMERICAN > 60
--- NOTE | 2018-06-16 23:42 | CP.PCM.HP ---
<Marion Garcia - Last Filed: 06/17/18 00:47> History of Present Illness - History of Present Illness History of Present Illness: cc: "shortness of breath" Mr. Burden is a 62 year old male PMH uncontrolled asthma, hypertension, gastritis admitted for shortness of breath despite Duonebs and Solumedrol x1 day. Patient was last admitted in March of this year for the same complaint. Patient is noncompliant with medications due to financial constraints and a friend told him repeatedly using the albuterol pump would give him high blood pressure. He has been feeling increasingly short of breath for the last week, and has been hesitant to use his rescue inhaler. Today, he was acutely short of breath, and the albuterol pump did not make him feel better. He has never been intubated nor has home O2. Today's symptoms are similar to his previous episodes of asthma exacerbation. Admits mild cough, sometimes with clear/white sputum. Denies fever, chills, night sweats, nausea, vomiting, diarrhea, abdominal pain, leg pain/swelling, weakness, or dizziness. PMHx: Asthma, HTN, gastritis PSHx: Endoscopy to eval gastritis Meds: Proair, Norvasc, Pepcid, Breo-Ellipta Allergies: NKDA FamHx: Mom , breast cancer SocHx: Former EtOH abuse, quit 2006; former tobacco use, 17pack years, denies drug use Present on Admission - Present on Admission Any Indicators Present on Admission: No Review of Systems - Constitutional Constitutional: Fatigue, Weakness. absent: Chills, Fever - EENT Eyes: absent: Blurred Vision, Diplopia Ears: Dizziness. absent: Disequilibrium Nose/Mouth/Throat: absent: Dysphagia, Odynophagia, Throat Swelling, Tongue Swelling - Cardiovascular Cardiovascular: Chest Pain with Activity, Dyspnea, Dyspnea on Exertion. absent: Pain Radiating to Arm/Neck/Jaw, Lightheadedness, Palpitations, Syncope - Respiratory Respiratory: Cough, Dyspnea, Dyspnea on Exertion, Wheezing. absent: Hemoptysis, Stridor - Gastrointestinal Gastrointestinal: Dyspepsia. absent: Constipation, Diarrhea, Dysphagia, Nausea, Odynophagia, Vomiting - Genitourinary Genitourinary: absent: Change in Urinary Stream, Difficulty Urinating, Urinary Frequency, Urinary Urgency - Musculoskeletal Musculoskeletal: absent: Numbness, Tingling - Integumentary Integumentary: absent: Lesions, Rash, Skin Ulcer, Swelling, Unusual Bruising - Neurological Neurological: Dizziness. absent: Numbness, Tingling - Psychiatric Psychiatric: absent: Change in Appetite, Hallucinations - Endocrine Endocrine: Fatigue. absent: Cold Intolorance, Heat Intolorance, Polydipsia, Polyphagia - Hematologic/Lymphatic Hematologic: absent: Easy Bleeding, Easy Bruising Past Patient History - Infectious Disease Hx of Infectious Diseases: None - Past Medical History & Family History Past Medical History?: Yes - Past Social History Smoking Status: Former Smoker Alcohol: None Drugs: Denies - CARDIAC Hx Hypertension: Yes - PULMONARY Hx Asthma: Yes Hx Chronic Obstructive Pulmonary Disease (COPD): Yes (ASTHMA) - NEUROLOGICAL Hx Neurological Disorder: No - HEENT Hx HEENT Problems: No - RENAL Hx Chronic Kidney Disease: No - ENDOCRINE/METABOLIC Hx Endocrine Disorders: No - HEMATOLOGICAL/ONCOLOGICAL Hx Blood Disorders: No - INTEGUMENTARY Hx Dermatological Problems: No - MUSCULOSKELETAL/RHEUMATOLOGICAL Hx Falls: Yes - GASTROINTESTINAL Hx Gastritis: Yes - GENITOURINARY/GYNECOLOGICAL Hx Genitourinary Disorders: No - PSYCHIATRIC Hx Substance Use: No - SURGICAL HISTORY Hx Surgeries: No - ANESTHESIA Hx Anesthesia: Yes Hx Anesthesia Reactions: No Hx Malignant Hyperthermia: No Meds Allergies/Adverse Reactions: Allergies Allergy/AdvReac Type Severity Reaction Status Date / Time No Known Allergies Allergy Verified 09/02/17 23:51 Physical Exam - Constitutional Appears: Well, No Acute Distress - Head Exam Head Exam: ATRAUMATIC, NORMOCEPHALIC - Eye Exam Eye Exam: EOMI, PERRL Pupil Exam: NORMAL ACCOMODATION - ENT Exam ENT Exam: Mucous Membranes Moist - Respiratory Exam Respiratory Exam: Decreased Breath Sounds, Wheezes (R>L diffuse expiratory wheezes), NORMAL BREATHING PATTERN. absent: Accessory Muscle Use, Rales, Rhonchi - Cardiovascular Exam Cardiovascular Exam: REGULAR RHYTHM, +S1, +S2. absent: Systolic Murmur - GI/Abdominal Exam GI & Abdominal Exam: Normal Bowel Sounds, Soft. absent: Tenderness Additional comments: umbilical hernia, fully reducible - Back Exam Back exam: absent: CVA tenderness (L), CVA tenderness (R) - Neurological Exam Neurological exam: Alert, CN II-XII Intact, Oriented x3, Reflexes Normal - Psychiatric Exam Psychiatric exam: Normal Affect, Normal Mood - Skin Skin Exam: Dry, Normal Color, Warm Results - Vital Signs Recent Vital Signs: Last Vital Signs Temp 99.4 F 06/16/18 22:03 Pulse 100 H 06/16/18 22:03 Resp 12 06/16/18 22:34 BP 163/104 H 06/16/18 22:03 Pulse Ox 97 06/16/18 23:34 - Labs Result Diagrams: 06/16/18 22:43 06/16/18 22:43 Labs: Laboratory Results - last 24 hr 06/16/18 06/16/18 22:43 22:43 WBC 6.7 RBC 4.61 Hgb 14.3 Hct 42.0 MCV 91.1 MCH 31.1 H MCHC 34.2 RDW 14.2 Plt Count 212 MPV 8.5 Neut % (Auto) 54.8 Lymph % (Auto) 17.1 L Reeves % (Auto) 10.6 H Eos % (Auto) 16.6 H Baso % (Auto) 0.9 Neut # (Auto) 3.7 Lymph # (Auto) 1.2 Reeves # (Auto) 0.7 Eos # (Auto) 1.1 H Baso # (Auto) 0.1 Sodium 137 Potassium 3.7 Chloride 100 Carbon Dioxide 27 Anion Gap 14 BUN 25 H Creatinine 1.0 Est GFR ( Amer) > 60 Est GFR (Non-Af Amer) > 60 Random Glucose 116 H Calcium 8.1 L Total Bilirubin 0.6 AST 29 ALT 26 Alkaline Phosphatase 60 Total Protein 6.2 L Albumin 4.0 Globulin 2.2 Albumin/Globulin Ratio 1.8 Assessment & Plan - Assessment and Plan (Free Text) Assessment: 62yo M PMH uncontrolled asthma, HTN, gastritis admitted for acute asthma exacerbation Plan: Asthma Exacerbation - CXR (06/16): pending read - given Duoneb and Solumedrol en route - given Duoneb and Mg Sulfate in ED - Solumedrol 40mg IV q6 - Duonebs q4 calvin - Albuterol q2 prn - Breo Ellipta 1 puff daily - O2 via NC 2L Hypertension - Norvasc 10mg po daily PPx - DVT: Heparin 5000u SC q8, SCDs - GI: Protonix 40mg po daily - Diet: HHD 2g Na d/w Dr. Sydni Garcia PGY-1 - Date & Time Date: 06/16/18 Time: 23:45 <Xavier Troy - Last Filed: 06/17/18 06:02> Results - Vital Signs Recent Vital Signs: Last Vital Signs Temp 98 F 06/17/18 04:29 Pulse 112 H 06/17/18 04:29 Resp 18 06/17/18 05:10 BP 156/102 H 06/17/18 04:29 Pulse Ox 98 06/17/18 04:29 - Labs Result Diagrams: 06/17/18 04:12 06/17/18 04:12 Labs: Laboratory Results - last 24 hr 06/16/18 06/16/18 06/17/18 22:43 22:43 04:12 WBC 6.7 5.8 RBC 4.61 4.79 Hgb 14.3 14.6 Hct 42.0 44.3 MCV 91.1 92.4 MCH 31.1 H 30.5 MCHC 34.2 33.0 RDW 14.2 14.0 Plt Count 212 204 MPV 8.5 9.7 Neut % (Auto) 54.8 94.8 H Lymph % (Auto) 17.1 L 4.4 L Reeves % (Auto) 10.6 H 0.5 Eos % (Auto) 16.6 H 0.1 Baso % (Auto) 0.9 0.2 Neut # (Auto) 3.7 5.5 Lymph # (Auto) 1.2 0.3 L Reeves # (Auto) 0.7 0.0 Eos # (Auto) 1.1 H 0.0 Baso # (Auto) 0.1 0.0 Sodium 137 Potassium 3.7 Chloride 100 Carbon Dioxide 27 Anion Gap 14 BUN 25 H Creatinine 1.0 Est GFR ( Amer) > 60 Est GFR (Non-Af Amer) > 60 Random Glucose 116 H Calcium 8.1 L Phosphorus Magnesium Total Bilirubin 0.6 AST 29 ALT 26 Alkaline Phosphatase 60 Total Protein 6.2 L Albumin 4.0 Globulin 2.2 Albumin/Globulin Ratio 1.8 06/17/18 04:12 WBC RBC Hgb Hct MCV MCH MCHC RDW Plt Count MPV Neut % (Auto) Lymph % (Auto) Reeves % (Auto) Eos % (Auto) Baso % (Auto) Neut # (Auto) Lymph # (Auto) Reeves # (Auto) Eos # (Auto) Baso # (Auto) Sodium 136 Potassium 4.2 Chloride 98 Carbon Dioxide 25 Anion Gap 17 BUN 26 H Creatinine 1.0 Est GFR ( Amer) > 60 Est GFR (Non-Af Amer) > 60 Random Glucose 345 H Calcium 8.2 L Phosphorus 2.5 Magnesium 2.1 Total Bilirubin 0.5 AST 33 ALT 30 Alkaline Phosphatase 56 Total Protein 6.7 Albumin 4.1 Globulin 2.6 Albumin/Globulin Ratio 1.6 Assessment & Plan - Date & Time Date: 06/17/18 (I have seen and examined the patient. I agree with the findings and plan of care as documented by Dr. Garcia. Patient with asthma exacerbation. Wheezing persisted despite ER treatment course. Continue nebs, oxygen, solumedrol, and home meds. Continue home meds for history of hypertension. Monitor for acute changes.) Time: 06:01 Attending/Attestation - Attestation I have personally seen and examined this patient.: Yes I have fully participated in the care of the patient.: Yes I have reviewed all pertinent clinical information: Yes
[2018-06-17] MEDS ORDERED: Albuterol HFA 90 mcg/actuation (8 g) INH PRN (00:32)
[2018-06-17] MEDS: Albuterol-Ipratrop 3 mg / 0.5 (3 ml) UD INH SCH ×4 (03:57→19:15)
[2018-06-17] MEDS ORDERED: Albuterol-Ipratrop 3 mg / 0.5 (3 ml) UD ONE (04:01)
[2018-06-17 04:41] LABS: ALB/GLOB RATIO 1.6 (1.0-2.1); ALBUMIN 4.1 g/dL (3.5-5.0); ALT/SGPT 30 U/L (21-72); AST/SGOT 33 U/L (17-59); BLOOD UREA NITROGEN 26 mg/dL (9-20); CALCIUM 8.2 mg/dl (8.6-10.4); GFR NON-AFRICAN AMERICAN > 60
[2018-06-17 04:53] LABS: BASO % 0.2 % (0.0-2.0); EOS % 0.1 % (0.0-4.0); HEMOGLOBIN 14.6 g/dL (12.0-18.0); LYMPH # 0.3 K/uL (1.0-4.3); LYMPH % 4.4 % (20.0-40.0); MEAN CELL VOLUME 92.4 fL (80.0-94.0); MEAN CORPUSCULAR HEMOGLOBIN 30.5 pg (27.0-31.0); MEAN PLATELET VOLUME 9.7 fL (7.2-11.7); MONO % 0.5 % (0.0-10.0); NEUT # 5.5 K/uL (1.8-7.0); NEUT % 94.8 % (50.0-75.0); PLATELET COUNT 204 K/uL (130-400); RBC 4.79 Mil/uL (4.40-5.90); WHITE BLOOD COUNT 5.8 K/uL (4.8-10.8)
[2018-06-17] MEDS ORDERED: MethylPREDNISolone 40 mg Vial ONE (06:11)
[2018-06-17] MEDS: MethylPREDNISolone 40 mg Vial IVP SCH ×3 (06:14→17:47)
--- NOTE | 2018-06-17 07:23 | CP.PCM.PN ---
<Sakshi Gonzales - Last Filed: 06/17/18 19:02> Subjective - Date & Time of Evaluation Date of Evaluation: 06/17/18 Time of Evaluation: 07:50 - Subjective Subjective: PGY-1 Sakshi Gonzales D.O. Medicine progress note for Dr. Rodrigez's service: Patient was seen and examined this morning. he states his breathing is much better on nasal cannula. he reports noncompliance with his meds. He denies smoking- last cigarette 17 yrs ago. Objective - Vital Signs/Intake and Output Vital Signs (last 24 hours): Temp Pulse Resp BP Pulse Ox 97.8 F 103 H 19 147/98 H 96 06/17/18 06:54 06/17/18 06:54 06/17/18 07:05 06/17/18 06:54 06/17/18 07:05 - Medications Medications: Current Medications Albuterol (Ventolin Hfa 90 Mcg/Actuation (8 G)) 1 puff INH Q2 PRN PRN Reason: Shortness of Breath Albuterol/Ipratropium (Duoneb 3 Mg/0.5 Mg (3 Ml) Ud) 3 ml INH RQ4 [facility] Last Admin: 06/17/18 03:57 Dose: 3 ml Amlodipine Besylate (Norvasc) 10 mg PO DAILY [facility] Famotidine (Pepcid) 40 mg PO DAILY [facility] Fluticasone/Vilanterol (Breo Ellipta 100-25 Mcg Inh) 1 puff INH RQD [facility] Heparin Sodium (Porcine) (Heparin) 5,000 units SC Q8 [facility] Last Admin: 06/17/18 06:14 Dose: 5,000 units Methylprednisolone (Solu-Medrol) 40 mg IVP Q6 [facility] Last Admin: 06/17/18 06:14 Dose: 40 mg - Labs Labs: 06/17/18 04:12 06/17/18 04:12 - Constitutional Appears: Non-toxic, No Acute Distress - Head Exam Head Exam: ATRAUMATIC, NORMAL INSPECTION - Eye Exam Eye Exam: EOMI, Normal appearance, PERRL - ENT Exam ENT Exam: Mucous Membranes Moist - Neck Exam Neck Exam: Normal Inspection - Respiratory Exam Respiratory Exam: Decreased Breath Sounds, Wheezes, NORMAL BREATHING PATTERN. absent: Accessory Muscle Use, Respiratory Distress Additional comments: on 2L NC - Cardiovascular Exam Cardiovascular Exam: Tachycardia, REGULAR RHYTHM - GI/Abdominal Exam GI & Abdominal Exam: Soft, Normal Bowel Sounds. absent: Tenderness - Rectal Exam Rectal Exam: Deferred - Extremities Exam Extremities Exam: Full ROM, Normal Inspection. absent: Pedal Edema - Neurological Exam Neurological Exam: Alert, Awake, CN II-XII Intact, Oriented x3 Neuro motor strength exam: Left Upper Extremity: 5, Right Upper Extremity: 5, Left Lower Extremity: 5, Right Lower Extremity: 5 - Psychiatric Exam Psychiatric exam: Normal Affect, Normal Mood - Skin Skin Exam: Dry, Intact, Normal Color, Warm Assessment and Plan - Assessment and Plan (Free Text) Assessment: Patient is a 62 yo male with a history of asthma and HTN who presented with acute asthma exacerbation. Patient has been noncompliant with his meds, including rescue inhaler. Patient quit smoking 17 yrs ago. Received steroid en route to ED. Now comfortable and saturating well on NC. Plan: Asthma- acute exacerbation - CXR: Poor inspiration with low lung volumes, crowded bronchovascular markings and mild bibasilar atelectasis left greater than right. Scalloping right hemidiaphragm again noted. - Maintain spO2 >92%- supplemental O2 PRN - Duoneb Q6H - Albuterol Q2H PRN - Tessalon perles 100 mg PO TID - Breo Ellipta daily - PT/OT Nausea, improving - Zofran 4 mg IV Q6H PRN Hypertension - Monitor vitals Q4H - Cardizem 5 mg IV x1 for elevated HR and BP - Norvasc 10mg po daily Elevated glucose - A1c in AM - Hypoglycemic protocol - Accuchecks ACHS with ISS Ppx VTE: Heparin 5000u SC q8, SCDs GI: PTX 40 mg PO daily Code status- full code Case was discussed with attending, Dr. Rodrigez. <Shamika Rodrigez V - Last Filed: 06/18/18 10:35> Objective - Vital Signs/Intake and Output Vital Signs (last 24 hours): Temp Pulse Resp BP Pulse Ox 98.6 F 99 H 18 149/88 99 06/18/18 07:00 06/18/18 07:00 06/18/18 07:00 06/18/18 07:00 06/18/18 07:00 Intake and Output: 06/18/18 06/18/18 06:59 18:59 Intake Total 440 Output Total 275 Balance 165 - Medications Medications: Current Medications Acetaminophen (Tylenol 325mg Tab) 650 mg PO Q6 PRN PRN Reason: Fever >100.4 F Acetylcysteine (Acetylcysteine 20%) 4 ml INH Q6H [facility] Albuterol (Ventolin Hfa 90 Mcg/Actuation (8 G)) 1 puff INH Q2 PRN PRN Reason: Shortness of Breath Albuterol/Ipratropium (Duoneb 3 Mg/0.5 Mg (3 Ml) Ud) 3 ml INH Q6H [facility] Amlodipine Besylate (Norvasc) 10 mg PO DAILY [facility] Last Admin: 06/18/18 09:42 Dose: 10 mg Benzonatate (Tessalon Perles) 100 mg PO TID [facility] Last Admin: 06/18/18 09:42 Dose: 100 mg Dextrose (Dextrose 50% Inj) 0 ml IV STAT PRN; Protocol PRN Reason: Hypoglycemia Protocol Dextrose (Glutose 15) 0 gm PO ONCE PRN; Protocol PRN Reason: Hypoglycemia Protocol Docusate Sodium (Colace) 100 mg PO BID [facility] Fluticasone/Vilanterol (Breo Ellipta 100-25 Mcg Inh) 1 puff INH RQD [facility] Last Admin: 06/17/18 08:46 Dose: 1 puff Glucagon (Glucagen Diagnostic Kit) 0 mg IM STAT PRN; Protocol PRN Reason: Hypoglycemia Protocol Guaifenesin (Mucinex La) 600 mg PO BID [facility] Heparin Sodium (Porcine) (Heparin) 5,000 units SC Q8 [facility] Last Admin: 06/18/18 06:01 Dose: 5,000 units Dextrose (Dextrose 5% In Water 1000 Ml) 1,000 mls @ 0 mls/hr IV .Q0M PRN; Protocol PRN Reason: Hypoglycemia Protocol Influenza Virus Vaccine (Fluzone Quad [id number]) 60 mcg IM .ONCE ONE Stop: 06/18/18 12:01 Insulin Aspart (Novolog) 0 unit SC ACHS [facility]; Protocol Last Admin: 06/18/18 08:45 Dose: Not Given Lisinopril (Zestril) 5 mg PO DAILY [facility] Methylprednisolone (Solu-Medrol) 40 mg IVP Q8H [facility] Stop: 06/19/18 06:00 Methylprednisolone (Solu-Medrol) 40 mg IVP Q12H [facility] Stop: 06/20/18 18:01 Ondansetron HCl (Zofran Inj) 4 mg IVP Q6H PRN PRN Reason: Nausea/Vomiting Last Admin: 06/17/18 08:03 Dose: 4 mg Pantoprazole Sodium (Protonix Ec Tab) 40 mg PO DAILY [facility] Last Admin: 06/18/18 09:42 Dose: 40 mg Pneumococcal Polyvalent Vaccine (Pneumovax 23 Vaccine) 0.5 ml IM .ONCE ONE Stop: 06/18/18 12:01 - Labs Labs: 06/18/18 07:09 06/18/18 07:09 Attending/Attestation - Attestation I have personally seen and examined this patient.: Yes I have fully participated in the care of the patient.: Yes I have reviewed all pertinent clinical information, including history, physical exam and plan: Yes Notes (Text): This is late computer entry for 06/17/18. Patient seen, examined, and case discussed with day-time resident. Patient seen in the Emergency Room awaiting bed upstairs. Patient's breathing is better with the nebulizer treatment but he has poor airentry on my exam. We have added Breo-Elliptia (Advair not available on formulary), Tesslon perles as supportive care, awaiting serologies since patient recently treated for Mycoplasma last admission. Patient had nausea secondary to constant cough, we have added PRN. Patient's sugar elevated likely secondary to steroid. Assessment/Plan 1) Asthma- acute exacerbation Assessment/Plan * Patient has to use his short-acting nebulizer, multiple times with no relief. * CXR: Poor inspiration with low lung volumes, crowded bronchovascular markings and mild bibasilar atelectasis left greater than right. Scalloping right hemidiaphragm again noted. * Maintain spO2 >92%- supplemental O2 PRN * Duoneb Q6H * Albuterol Q2H PRN * Tessalon perles 100 mg PO TID * Breo Ellipta daily * PT/OT 2) Nausea Assessment/Plan * Zofran 4 mg IV Q6H PRN 3) Uncontrolled Hypertension Assessment/Plan * Monitor vitals Q4H * Cardizem 5 mg IV x1 for elevated HR and BP * Norvasc 10mg po daily 4) Elevated glucose Assessment/Plan * A1c in AM * Hypoglycemic protocol * Accuchecks ACHS with ISS 5) History of Noncompliance 6) Ppx * VTE: Heparin 5000u SC q8, SCDs * GI: PTX 40 mg PO daily
[2018-06-17 08:18] LABS: LYMPHOCYTE 4 % (20-40); NEUTROPHIL 96 % (50-75); PLATELET ESTIMATE NORMAL (NORMAL); TOTAL CELLS COUNTED 100
[2018-06-17] MEDS: Fluticasone-Vilanterol 100/25mcg Diskus INH SCH (08:46)
--- NOTE | 2018-06-17 09:44 | RAD ---
Date of service: 06/16/2018 HISTORY: sob COMPARISON: No prior. TECHNIQUE: Chest PA and lateral FINDINGS: LUNGS: Poor inspiration with low lung volumes, crowded bronchovascular markings and mild bibasilar atelectasis left greater than right. Scalloping right hemidiaphragm again noted. PLEURA: No significant pleural effusion identified. No pneumothorax apparent. CARDIOVASCULAR: Mild aortic atherosclerotic calcification present. Heart size upper limits of normal.. No pulmonary vascular congestion. OSSEOUS STRUCTURES: No significant abnormalities. VISUALIZED UPPER ABDOMEN: Normal. OTHER FINDINGS: None. IMPRESSION: Poor inspiration with low lung volumes, crowded bronchovascular markings and mild bibasilar atelectasis left greater than right. Scalloping right hemidiaphragm again noted.
[2018-06-17] MEDS ORDERED: Dextrose 50% SYRINGE Inj (50 ml) IV PRN (09:49)
[2018-06-17] MEDS ORDERED: Glucagon Recombinant 1 mg Inj IM PRN (09:49)
[2018-06-17] MEDS: (Novolog) Insulin Aspart, Recombinant 100 u/ml 10 ml vial SC SCH ×3 (11:58→22:18)
[2018-06-17] MEDS ORDERED: Pneumococcal 23-Valent Vaccine IM ONE ×2 (13:36→13:37)
[2018-06-17] MEDS ORDERED: Influenza Vaccine 60 MCG/0.5 ML SYR (3 yr & up) IM ONE (13:37)
[2018-06-17 22:09] LABS: MYCOPLASMA PNEUMONIAE IGM NEGATIVE (NEGATIVE)
[2018-06-17 22:49] LABS: LEGIONELLA AG URINE NEGATIVE (NEGATIVE)
[2018-06-18] MEDS: MethylPREDNISolone 40 mg Vial IVP SCH ×4 (00:38→21:22)
[2018-06-18] MEDS: Albuterol-Ipratrop 3 mg / 0.5 (3 ml) UD INH SCH ×5 (01:25→19:46)
[2018-06-18 07:19] LABS: BASO % 0.1 % (0.0-2.0); HEMOGLOBIN 13.5 g/dL (12.0-18.0); LYMPH # 0.7 K/uL (1.0-4.3); LYMPH % 4.7 % (20.0-40.0); MEAN CELL VOLUME 91.3 fL (80.0-94.0); MEAN CORPUSCULAR HEMOGLOBIN 30.6 pg (27.0-31.0); MEAN CORPUSCULAR HGB CONC 33.5 g/dL (33.0-37.0); MEAN PLATELET VOLUME 8.8 fL (7.2-11.7); MONO # 0.3 K/uL (0.0-0.8); MONO % 2.4 % (0.0-10.0); NEUT # 13.5 K/uL (1.8-7.0); NEUT % 92.8 % (50.0-75.0); NRBC % 0.2 % (0.0-2.0); PLATELET COUNT 221 K/uL (130-400); RBC 4.42 Mil/uL (4.40-5.90)
[2018-06-18 07:39] LABS: WHITE BLOOD COUNT 14.5 K/uL (4.8-10.8)
[2018-06-18] MEDS: Fluticasone-Vilanterol 100/25mcg Diskus INH SCH (07:45)
[2018-06-18 08:34] LABS: ALB/GLOB RATIO 1.5 (1.0-2.1); ALBUMIN 3.9 g/dL (3.5-5.0); ALT/SGPT 31 U/L (21-72); AST/SGOT 28 U/L (17-59); BLOOD UREA NITROGEN 25 mg/dL (9-20); CALCIUM 8.9 mg/dl (8.6-10.4); GFR NON-AFRICAN AMERICAN > 60
[2018-06-18] MEDS: (Novolog) Insulin Aspart, Recombinant 100 u/ml 10 ml vial SC SCH ×4 (08:45→21:23)
[2018-06-18] MEDS: Pantoprazole 40 mg EC Tab PO SCH (09:42)
--- NOTE | 2018-06-18 10:30 | CP.PCM.PN ---
<RogerEffielarry E - Last Filed: 06/18/18 16:06> Subjective - Date & Time of Evaluation Date of Evaluation: 06/18/18 Time of Evaluation: 10:00 - Subjective Subjective: Medicine progress note (Dr. Rodrigez's Service) Patient was seen and examined at bedside. Patient still admits to cough, chest discomfort secondary to cough and mild shortness of breath. Patient denies any palpitations, dizziness, nausea, vomiting, abdominal pain, headache. Objective - Vital Signs/Intake and Output Vital Signs (last 24 hours): Temp Pulse Resp BP Pulse Ox 98.6 F 99 H 18 149/88 99 06/18/18 07:00 06/18/18 07:00 06/18/18 07:00 06/18/18 07:00 06/18/18 07:00 Intake and Output: 06/18/18 06/18/18 06:59 18:59 Intake Total 440 Output Total 275 Balance 165 - Medications Medications: Current Medications Acetaminophen (Tylenol 325mg Tab) 650 mg PO Q6 PRN PRN Reason: Fever >100.4 F Albuterol (Ventolin Hfa 90 Mcg/Actuation (8 G)) 1 puff INH Q2 PRN PRN Reason: Shortness of Breath Albuterol/Ipratropium (Duoneb 3 Mg/0.5 Mg (3 Ml) Ud) 3 ml INH Q6H [facility] Amlodipine Besylate (Norvasc) 10 mg PO DAILY [facility] Last Admin: 06/18/18 09:42 Dose: 10 mg Benzonatate (Tessalon Perles) 100 mg PO TID [facility] Last Admin: 06/18/18 09:42 Dose: 100 mg Dextrose (Dextrose 50% Inj) 0 ml IV STAT PRN; Protocol PRN Reason: Hypoglycemia Protocol Dextrose (Glutose 15) 0 gm PO ONCE PRN; Protocol PRN Reason: Hypoglycemia Protocol Docusate Sodium (Colace) 100 mg PO BID [facility] Fluticasone/Vilanterol (Breo Ellipta 100-25 Mcg Inh) 1 puff INH RQD [facility] Last Admin: 06/17/18 08:46 Dose: 1 puff Glucagon (Glucagen Diagnostic Kit) 0 mg IM STAT PRN; Protocol PRN Reason: Hypoglycemia Protocol Guaifenesin (Mucinex La) 600 mg PO BID [facility] Heparin Sodium (Porcine) (Heparin) 5,000 units SC Q8 [facility] Last Admin: 06/18/18 06:01 Dose: 5,000 units Dextrose (Dextrose 5% In Water 1000 Ml) 1,000 mls @ 0 mls/hr IV .Q0M PRN; Protocol PRN Reason: Hypoglycemia Protocol Influenza Virus Vaccine (Fluzone Quad [id number]) 60 mcg IM .ONCE ONE Stop: 06/18/18 12:01 Insulin Aspart (Novolog) 0 unit SC ACHS [facility]; Protocol Last Admin: 06/18/18 08:45 Dose: Not Given Lisinopril (Zestril) 5 mg PO DAILY [facility] Methylprednisolone (Solu-Medrol) 40 mg IVP Q8H [facility] Stop: 06/19/18 06:00 Methylprednisolone (Solu-Medrol) 40 mg IVP Q12H [facility] Stop: 06/20/18 18:01 Ondansetron HCl (Zofran Inj) 4 mg IVP Q6H PRN PRN Reason: Nausea/Vomiting Last Admin: 06/17/18 08:03 Dose: 4 mg Pantoprazole Sodium (Protonix Ec Tab) 40 mg PO DAILY [facility] Last Admin: 06/18/18 09:42 Dose: 40 mg Pneumococcal Polyvalent Vaccine (Pneumovax 23 Vaccine) 0.5 ml IM .ONCE ONE Stop: 06/18/18 12:01 - Labs Labs: 06/18/18 07:09 06/18/18 07:09 - Constitutional Appears: No Acute Distress - Head Exam Head Exam: ATRAUMATIC, NORMAL INSPECTION - Eye Exam Eye Exam: EOMI - ENT Exam ENT Exam: Mucous Membranes Moist - Respiratory Exam Respiratory Exam: Decreased Breath Sounds, NORMAL BREATHING PATTERN Additional comments: Significant decrease breath sounds in b/l lower bases Diffuse mild expiratory wheezing upper lung bases - Cardiovascular Exam Cardiovascular Exam: Tachycardia, REGULAR RHYTHM, +S1, +S2 - GI/Abdominal Exam GI & Abdominal Exam: Soft, Normal Bowel Sounds. absent: Distended, Firm, Guarding, Rigid - Extremities Exam Extremities Exam: absent: Calf Tenderness, Pedal Edema - Neurological Exam Neurological Exam: Alert, Awake, Oriented x3 - Psychiatric Exam Psychiatric exam: Normal Affect - Skin Skin Exam: Normal Color Assessment and Plan (1) Exacerbation of asthma Assessment & Plan: Chest x-ray (06/16/18): Poor inspiration with low lung volumes, crowded bronchovascular markings and mild bibasilar atelectasis left greater than right. Scalloping right hemidiaphragm again noted. F/u chest x-ray(06/18/18): Medication/Management: * Albuterol HFA 1 puff INH Q2 PRN * Duonebs 3ml INH Q6H with acetylcysteine INH * Mucinex 600mg PO BID * Methylprednisone 40mg IV Q8H (06/18/18) and Methylpred nisone 40mg IV Q12H (06/19/18) * Breo-ellipta 100-25 MCG INH QD * Tessalon perles 100 mg PO TID * Maintain spO2 >92%- supplemental O2 PRN Status: Acute (2) Uncontrolled hypertension Assessment & Plan: Norvasc 10mg PO QD Lisinopril 5mg PO QD ( Added 06/18/18) Monitor vitals Q4H Status: Acute (3) Cough Assessment & Plan: Mucinex 600mg PO BID Tessalon perles 100 mg PO TID Urine Legionella, Mycoplasma and Group A beta Strep Ag: Negative Status: Acute (4) Blood glucose elevated Assessment & Plan: HgbA1C: 5.9 Accuchecks ISS-low dose Hypoglycemia protocol Status: Acute (5) Constipation, acute Assessment & Plan: Colace 100mg PO BID Status: Acute (6) GERD (gastroesophageal reflux disease) Assessment & Plan: Protonix 40mg PO daily Status: Chronic (7) Prophylactic measure Assessment & Plan: DVT: Heparin 5000u SC Q8, SCDs GI: Protonix 40mg PO daily All plans and management discussed with Dr. Rodrigez Status: Acute <Shamika Rodrigez V - Last Filed: 06/18/18 16:25> Objective - Vital Signs/Intake and Output Vital Signs (last 24 hours): Temp Pulse Resp BP Pulse Ox 98.6 F 99 H 18 149/88 99 06/18/18 07:00 06/18/18 07:00 06/18/18 07:00 06/18/18 07:00 06/18/18 07:00 Intake and Output: 06/18/18 06/18/18 06:59 18:59 Intake Total 440 Output Total 275 Balance 165 - Medications Medications: Current Medications Acetaminophen (Tylenol 325mg Tab) 650 mg PO Q6 PRN PRN Reason: Fever >100.4 F Acetylcysteine (Acetylcysteine 20%) 4 ml INH Q6H [facility] Last Admin: 06/18/18 13:41 Dose: Not Given Albuterol (Ventolin Hfa 90 Mcg/Actuation (8 G)) 1 puff INH Q2 PRN PRN Reason: Shortness of Breath Albuterol/Ipratropium (Duoneb 3 Mg/0.5 Mg (3 Ml) Ud) 3 ml INH RQ6 [facility] Last Admin: 06/18/18 13:41 Dose: 3 ml Amlodipine Besylate (Norvasc) 10 mg PO DAILY [facility] Last Admin: 06/18/18 09:42 Dose: 10 mg Benzonatate (Tessalon Perles) 100 mg PO TID [facility] Last Admin: 06/18/18 14:49 Dose: 100 mg Dextrose (Dextrose 50% Inj) 0 ml IV STAT PRN; Protocol PRN Reason: Hypoglycemia Protocol Dextrose (Glutose 15) 0 gm PO ONCE PRN; Protocol PRN Reason: Hypoglycemia Protocol Docusate Sodium (Colace) 100 mg PO BID [facility] Last Admin: 06/18/18 11:29 Dose: 100 mg Fluticasone/Vilanterol (Breo Ellipta 100-25 Mcg Inh) 1 puff INH RQD [facility] Last Admin: 06/18/18 07:45 Dose: Not Given Glucagon (Glucagen Diagnostic Kit) 0 mg IM STAT PRN; Protocol PRN Reason: Hypoglycemia Protocol Guaifenesin (Mucinex La) 600 mg PO BID [facility] Last Admin: 06/18/18 11:30 Dose: 600 mg Heparin Sodium (Porcine) (Heparin) 5,000 units SC Q8 [facility] Last Admin: 06/18/18 14:44 Dose: 5,000 units Dextrose (Dextrose 5% In Water 1000 Ml) 1,000 mls @ 0 mls/hr IV .Q0M PRN; Protocol PRN Reason: Hypoglycemia Protocol Insulin Aspart (Novolog) 0 unit SC ACHS [facility]; Protocol Last Admin: 06/18/18 12:23 Dose: Not Given Lisinopril (Zestril) 5 mg PO DAILY [facility] Last Admin: 06/18/18 11:30 Dose: 5 mg Methylprednisolone (Solu-Medrol) 40 mg IVP Q8H [facility] Stop: 06/19/18 06:00 Last Admin: 06/18/18 14:43 Dose: 40 mg Methylprednisolone (Solu-Medrol) 40 mg IVP Q12H [facility] Stop: 06/20/18 18:01 Ondansetron HCl (Zofran Inj) 4 mg IVP Q6H PRN PRN Reason: Nausea/Vomiting Last Admin: 06/17/18 08:03 Dose: 4 mg Pantoprazole Sodium (Protonix Ec Tab) 40 mg PO DAILY [facility] Last Admin: 06/18/18 09:42 Dose: 40 mg - Labs Labs: 06/18/18 07:09 06/18/18 07:09 Attending/Attestation - Attestation I have personally seen and examined this patient.: Yes I have fully participated in the care of the patient.: Yes I have reviewed all pertinent clinical information, including history, physical exam and plan: Yes Notes (Text): Patient seen, examined and case discussed with day-time resident. Patient seen at bedside this morning. Lung exam improved. Taper steroid today. Will repeat chest xray PA and Lateral. Serologies are negative. Add supportive care for the cough. Tesslon pearles and mucinex. D/c telemetry Blood pressure uncontrolled add Lisinopril today. Assessment/Plan 1) Asthma- acute exacerbation Assessment/Plan * Patient has to use his short-acting nebulizer, multiple times with no relief. * CXR: Poor inspiration with low lung volumes, crowded bronchovascular markings and mild bibasilar atelectasis left greater than right. Scalloping right h emidiaphragm again noted. * Maintain spO2 >92%- supplemental O2 PRN * Duoneb Q6H * Albuterol Q2H PRN * Tessalon perles 100 mg PO TID * Breo Ellipta daily * PT/OT * Taper steroids 2) Nausea-->controlled Assessment/Plan * Zofran 4 mg IV Q6H PRN 3) Uncontrolled Hypertension Assessment/Plan * Monitor vitals Q4H * Cardizem 5 mg IV x1 for elevated HR and BP * Norvasc 10mg po daily * Add Lisinopril 5mg PO daily 4) Impaired glucose tolerance Assessment/Plan * Hypoglycemic protocol * Accuchecks ACHS with ISS 5) History of Noncompliance 6) Ppx * VTE: Heparin 5000u SC q8, SCDs * GI: PTX 40 mg PO daily Disposition: Improving, will benefit from IV steroid therapy. Plan for discharge tomorrow. patient will need to pay offset cost of his medications via voucher and recommended to follow-up in the clinic.
[2018-06-18 10:37] LABS: BANDS 3 % (0-2); LYMPHOCYTE 4 % (20-40); TOTAL CELLS COUNTED 100
[2018-06-18 10:38] LABS: MONOCYTE 2 % (0-10); NEUTROPHIL 91 % (50-75); PLATELET ESTIMATE NORMAL (NORMAL)
[2018-06-18 10:39] LABS: TOXIC GRANULATION PRESENT
[2018-06-18] MEDS: guaiFENesin 600 mg ER Tab PO SCH ×2 (11:30→18:33)
[2018-06-18] MEDS ORDERED: Pneumococcal 23-Valent Vaccine IM ONE (12:00)
[2018-06-18] MEDS ORDERED: Influenza Vaccine 60 MCG/0.5 ML SYR (3 yr & up) IM ONE (12:00)
[2018-06-18] MEDS: Acetylcysteine 20% Inhal Soln (4ml) INH SCH ×2 (13:41→19:46)
--- NOTE | 2018-06-18 14:16 | CARD ---
APPROVED REPORT Date of service: 06/16/2018 EKG Measurement Heart [id number] <Conclusion> Normal sinus rhythm Minimal voltage criteria for LVH, may be normal variant Borderline ECG
[2018-06-18 17:17] VITALS: RESP 20
[2018-06-19 00:51] VITALS: TEMP 98.1
[2018-06-19] MEDS: Albuterol-Ipratrop 3 mg / 0.5 (3 ml) UD INH SCH ×2 (01:25→08:23)
[2018-06-19] MEDS: MethylPREDNISolone 40 mg Vial IVP SCH (06:17)
[2018-06-19 08:03] LABS: BASO % 0.1 % (0.0-2.0); HEMOGLOBIN 13.4 g/dL (12.0-18.0); LYMPH # 0.6 K/uL (1.0-4.3); LYMPH % 3.5 % (20.0-40.0); MEAN CELL VOLUME 90.9 fL (80.0-94.0); MEAN CORPUSCULAR HEMOGLOBIN 30.2 pg (27.0-31.0); MEAN CORPUSCULAR HGB CONC 33.2 g/dL (33.0-37.0); MEAN PLATELET VOLUME 8.8 fL (7.2-11.7); MONO # 0.3 K/uL (0.0-0.8); MONO % 2.1 % (0.0-10.0); NEUT # 15.3 K/uL (1.8-7.0); NEUT % 94.3 % (50.0-75.0); PLATELET COUNT 233 K/uL (130-400); RBC 4.45 Mil/uL (4.40-5.90); RED CELL DISTRIBUTION WIDTH 14.6 % (11.5-14.5); WHITE BLOOD COUNT 16.2 K/uL (4.8-10.8)
[2018-06-19] MEDS: (Novolog) Insulin Aspart, Recombinant 100 u/ml 10 ml vial SC SCH (08:16)
[2018-06-19 08:23] LABS: ALB/GLOB RATIO 1.6 (1.0-2.1); ALBUMIN 3.9 g/dL (3.5-5.0); ALT/SGPT 25 U/L (21-72); AST/SGOT 22 U/L (17-59); BLOOD UREA NITROGEN 28 mg/dL (9-20); CALCIUM 8.8 mg/dl (8.6-10.4); GFR NON-AFRICAN AMERICAN > 60
[2018-06-19] MEDS: Fluticasone-Vilanterol 100/25mcg Diskus INH SCH (08:23)
[2018-06-19] MEDS: Acetylcysteine 20% Inhal Soln (4ml) INH SCH (08:23)
[2018-06-19 08:40] VITALS: BP 160/71; PULSE 79; O2SAT 97
[2018-06-19 10:02] LABS: ANISOCYTOSIS SLIGHT; LYMPHOCYTE 2 % (20-40); MONOCYTE 3 % (0-10); NEUTROPHIL 95 % (50-75); PLATELET ESTIMATE NORMAL (NORMAL); TOTAL CELLS COUNTED 100
[2018-06-19 10:03] LABS: OVALOCYTES SLIGHT
[2018-06-19] MEDS: Pantoprazole 40 mg EC Tab PO SCH (10:42)
[2018-06-19] MEDS: guaiFENesin 600 mg ER Tab PO SCH (10:43)
--- NOTE | 2018-06-19 12:43 | RAD ---
Date of service: 06/19/2018 HISTORY: Dyspnea COMPARISON: 06/16/2018 TECHNIQUE: Chest PA and lateral FINDINGS: LUNGS: No active pulmonary disease. PLEURA: No significant pleural effusion identified. No pneumothorax apparent. CARDIOVASCULAR: No aortic atherosclerotic calcification present. Normal cardiac size. No pulmonary vascular congestion. OSSEOUS STRUCTURES: No significant abnormalities. VISUALIZED UPPER ABDOMEN: Normal. OTHER FINDINGS: None. IMPRESSION: No active disease.
--- NOTE | 2018-06-19 13:25 | CP.PCM.DIS ---
<Amanda Duran E - Last Filed: 06/19/18 14:46> Provider - Provider Date of Admission: 06/16/18 23:29 Attending physician: Shamika Rodrigez DO Time Spent in preparation of Discharge (in minutes): 40 Diagnosis - Discharge Diagnosis (1) Exacerbation of asthma Status: Acute (2) Uncontrolled hypertension Status: Acute (3) Cough Status: Acute (4) Blood glucose elevated Status: Acute (5) Constipation, acute Status: Acute (6) GERD (gastroesophageal reflux disease) Status: Chronic (7) Prophylactic measure Status: Acute Hospital Course - Lab Results Lab Results: Micro Results 06/17/18 19:42 Throat Group A Strep Throat Culture - Final NORMAL SAPROPHYTIC [place]. CULTURE NEGATIVE FOR BETA STREP GROUP A. Most Recent Lab Values WBC 16.2 K/uL (4.8-10.8) H 06/19/18 07:53 RBC 4.45 Mil/uL (4.40-5.90) 06/19/18 07:53 Hgb 13.4 g/dL (12.0-18.0) 06/19/18 07:53 Hct 40.5 % (35.0-51.0) 06/19/18 07:53 MCV 90.9 fL (80.0-94.0) 06/19/18 07:53 MCH 30.2 pg (27.0-31.0) 06/19/18 07:53 MCHC 33.2 g/dL (33.0-37.0) 06/19/18 07:53 RDW 14.6 % (11.5-14.5) H 06/19/18 07:53 Plt Count 233 K/uL (130-400) 06/19/18 07:53 MPV 8.8 fL (7.2-11.7) 06/19/18 07:53 Neut % (Auto) 94.3 % (50.0-75.0) H 06/19/18 07:53 Lymph % (Auto) 3.5 % (20.0-40.0) L 06/19/18 07:53 Citrus % (Auto) 2.1 % (0.0-10.0) 06/19/18 07:53 Eos % (Auto) 0.0 % (0.0-4.0) 06/19/18 07:53 Baso % (Auto) 0.1 % (0.0-2.0) 06/19/18 07:53 Neut # (Auto) 15.3 K/uL (1.8-7.0) H 06/19/18 07:53 Lymph # (Auto) 0.6 K/uL (1.0-4.3) L 06/19/18 07:53 Citrus # (Auto) 0.3 K/uL (0.0-0.8) 06/19/18 07:53 Eos # (Auto) 0.0 K/uL (0.0-0.7) 06/19/18 07:53 Baso # (Auto) 0.0 K/uL (0.0-0.2) 06/19/18 07:53 Neutrophils % (Manual) 95 % (50-75) H 06/19/18 07:53 Band Neutrophils % 3 % (0-2) H 06/18/18 07:09 Lymphocytes % (Manual) 2 % (20-40) L 06/19/18 07:53 Monocytes % (Manual) 3 % (0-10) 06/19/18 07:53 Toxic Granulation Present 06/18/18 07:09 Platelet Estimate Normal (NORMAL) 06/19/18 07:53 RBC Morphology Normal 06/18/18 07:09 Anisocytosis (manual) Slight 06/19/18 07:53 Ovalocytes Slight 06/19/18 07:53 Sodium 137 mmol/L (132-148) 06/19/18 07:53 Potassium 4.3 mmol/L (3.6-5.2) 06/19/18 07:53 Chloride 101 mmol/L (98-107) 06/19/18 07:53 Carbon Dioxide 28 mmol/L (22-30) 06/19/18 07:53 Anion Gap 13 (10-20) 06/19/18 07:53 BUN 28 mg/dL (9-20) H 06/19/18 07:53 Creatinine 0.8 mg/dL (0.8-1.5) 06/19/18 07:53 Est GFR ( Amer) > 60 06/19/18 07:53 Est GFR (Non-Af Amer) > 60 06/19/18 07:53 POC Glucose (mg/dL) 119 mg/dL (65-110) H 06/19/18 06:09 Random Glucose 128 mg/dL (75-110) H 06/19/18 07:53 Hemoglobin A1c 6.0 % (4.2-6.5) 06/18/18 07:09 Calcium 8.8 mg/dl (8.6-10.4) 06/19/18 07:53 Phosphorus 3.4 mg/dL (2.5-4.5) 06/19/18 07:53 Magnesium 2.2 mg/dL (1.6-2.3) 06/19/18 07:53 Total Bilirubin 0.5 mg/dL (0.2-1.3) 06/19/18 07:53 AST 22 U/L (17-59) 06/19/18 07:53 ALT 25 U/L (21-72) 06/19/18 07:53 Alkaline Phosphatase 60 U/L (38-126) 06/19/18 07:53 Total Protein 6.3 g/dL (6.3-8.3) 06/19/18 07:53 Albumin 3.9 g/dL (3.5-5.0) 06/19/18 07:53 Globulin 2.4 gm/dL (2.2-3.9) 06/19/18 07:53 Albumin/Globulin Ratio 1.6 (1.0-2.1) 06/19/18 07:53 Ur L.pneumophila Ag Negative (NEGATIVE) 06/17/18 19:42 Mycoplasma pneumon IgM Negative (NEGATIVE) 06/17/18 19:42 Grp A Beta Strep Ag Negative (NEGATIVE) 06/17/18 19:42 - Hospital Course Hospital Course: HPI (As per admission): Mr. Burden is a 62 year old male H uncontrolled asthma, hypertension, gastritis admitted for shortness of breath despite Duonebs and Solumedrol x1 day. Patient was last admitted in March of this year for the same complaint. Patient is noncompliant with medications due to financial constraints and a friend told him repeatedly using the albuterol pump would give him high blood pressure. He has been feeling increasingly short of breath for the last week, and has been hesitant to use his rescue inhaler. Today, he was acutely short of breath, and the albuterol pump did not make him feel better. He has never been intubated nor has home O2. Today's symptoms are similar to his previous episodes of asthma exacerbation. Admits mild cough, sometimes with clear/white sputum. Denies fever, chills, night sweats, nausea, vomiting, diarrhea, abdominal pain, leg pain/swelling, weakness, or dizziness. Hospital Course: Patient was admitted for asthma exacerbation and was started on appropriate medications. Patient started to improve significantly from initial clinic prese ntation on admission over the course of admission. Patient remained stable over the course of admission with no acute issues. Patient was discharged on Day 3 of admission with appropriate instructions and prescriptions Pertinent image/Labs: Chest x-ray (06/16/18): Poor inspiration with low lung volumes, crowded bronchovascular markings and mild bibasilar atelectasis left greater than right. Scalloping right hemidiaphragm again noted. Repeat Chest X-ray (06/19/18): No active disease. Urine Legionella, Mycoplasma and Group A beta Strep Ag: Negative Blood culture: Negative after 5 days This is a brief summary of event. For a complete course, please refer to the EMR Discharge Exam - Head Exam Head Exam: ATRAUMATIC, NORMAL INSPECTION - Eye Exam Eye Exam: EOMI, Normal appearance - Respiratory Exam Respiratory Exam: NORMAL BREATHING PATTERN Additional comments: Mild diffuse expiratory wheezing - Cardiovascular Exam Cardiovascular Exam: REGULAR RHYTHM, +S1, +S2 - GI/Abdominal Exam GI & Abdominal Exam: Normal Bowel Sounds, Soft. absent: Distended, Firm, Guar ding, Tenderness - Extremities Exam Extremities exam: normal inspection - Neurological Exam Neurological exam: Normal Gait, Oriented x3 - Psychiatric Exam Psychiatric exam: Normal Affect - Skin Skin Exam: Normal Color Discharge Plan - Discharge Medications Prescriptions: RX: Albuterol HFA [Ventolin HFA 90 mcg/actuation (8 g)] 1 puff IH Q4 PRN #1 inhaler PRN Reason: Shortness Of Breath RX: amLODIPine [Norvasc] 10 mg PO DAILY 30 Days #30 tab RX: Benzonatate [Tessalon Perles] 100 mg PO TID #15 sgl Famotidine [Pepcid] 20 mg PO BID 30 Days #60 tab RX: Fluticasone Propionate [Flovent Diskus] 50 mcg IH BID #1 inhaler RX: guaiFENesin [Mucinex LA] 600 mg PO BID #1 bottle RX: Lisinopril [Zestril] 5 mg PO DAILY 30 Days #30 tab predniSONE [Prednisone] 40 mg PO DAILY 5 Days #5 tab - Follow Up Plan Condition: GOOD Disposition: HOME/ ROUTINE Instructions: Asthma, Adult (DC), Hyperglycemia, Adult (DC), Hypertension (DC), Hypertension (GEN) Additional Instructions: Please discharge patient home Please continue with following medications: - Norvasc 10mg PO daily - Lisinopril 5mg PO daily - Albuterol HFA 1 Puff INH Q4H PRN as needed for shortness of breath - Prednisone 40mg PO daily for 5 days - Mucinex 600mg PO BID for cough - Pepcid 20mg PO BID (twice per day) - Fluticasone Propionate 1 puff INK twice per day - Tessalon perles 100mg PO TID for cough, 15 tablets dispense Please follow up at the [facility] in 1 week for blood pressure check and to continue to establish care, Please take your asthma medications as instructed and blood pressure medications Please take care <Shamika Rodrigez V - Last Filed: 06/20/18 13:29> Provider - Provider Date of Admission: 06/16/18 23:29 Attending physician: Shamika Rodrigez, Hospital Course - Lab Results Lab Results: Micro Results 06/17/18 19:42 Throat Group A Strep Throat Culture - Final NORMAL SAPROPHYTIC [place]. CULTURE NEGATIVE FOR BETA STREP GROUP A. Most Recent Lab Values WBC 16.2 K/uL (4.8-10.8) H 06/19/18 07:53 RBC 4.45 Mil/uL (4.40-5.90) 06/19/18 07:53 Hgb 13.4 g/dL (12.0-18.0) 06/19/18 07:53 Hct 40.5 % (35.0-51.0) 06/19/18 07:53 MCV 90.9 fL (80.0-94.0) 06/19/18 07:53 MCH 30.2 pg (27.0-31.0) 06/19/18 07:53 MCHC 33.2 g/dL (33.0-37.0) 06/19/18 07:53 RDW 14.6 % (11.5-14.5) H 06/19/18 07:53 Plt Count 233 K/uL (130-400) 06/19/18 07:53 MPV 8.8 fL (7.2-11.7) 06/19/18 07:53 Neut % (Auto) 94.3 % (50.0-75.0) H 06/19/18 07:53 Lymph % (Auto) 3.5 % (20.0-40.0) L 06/19/18 07:53 Citrus % (Auto) 2.1 % (0.0-10.0) 06/19/18 07:53 Eos % (Auto) 0.0 % (0.0-4.0) 06/19/18 07:53 Baso % (Auto) 0.1 % (0.0-2.0) 06/19/18 07:53 Neut # (Auto) 15.3 K/uL (1.8-7.0) H 06/19/18 07:53 Lymph # (Auto) 0.6 K/uL (1.0-4.3) L 06/19/18 07:53 Citrus # (Auto) 0.3 K/uL (0.0-0.8) 06/19/18 07:53 Eos # (Auto) 0.0 K/uL (0.0-0.7) 06/19/18 07:53 Baso # (Auto) 0.0 K/uL (0.0-0.2) 06/19/18 07:53 Neutrophils % (Manual) 95 % (50-75) H 06/19/18 07:53 Band Neutrophils % 3 % (0-2) H 06/18/18 07:09 Lymphocytes % (Manual) 2 % (20-40) L 06/19/18 07:53 Monocytes % (Manual) 3 % (0-10) 06/19/18 07:53 Toxic Granulation Present 06/18/18 07:09 Platelet Estimate Normal (NORMAL) 06/19/18 07:53 RBC Morphology Normal 06/18/18 07:09 Anisocytosis (manual) Slight 06/19/18 07:53 Ovalocytes Slight 06/19/18 07:53 Sodium 137 mmol/L (132-148) 06/19/18 07:53 Potassium 4.3 mmol/L (3.6-5.2) 06/19/18 07:53 Chloride 101 mmol/L (98-107) 06/19/18 07:53 Carbon Dioxide 28 mmol/L (22-30) 06/19/18 07:53 Anion Gap 13 (10-20) 06/19/18 07:53 BUN 28 mg/dL (9-20) H 06/19/18 07:53 Creatinine 0.8 mg/dL (0.8-1.5) 06/19/18 07:53 Est GFR ( Amer) > 60 06/19/18 07:53 Est GFR (Non-Af Amer) > 60 06/19/18 07:53 POC Glucose (mg/dL) 145 mg/dL (65-110) H 06/19/18 11:16 Random Glucose 128 mg/dL (75-110) H 06/19/18 07:53 Hemoglobin A1c 6.0 % (4.2-6.5) 06/18/18 07:09 Calcium 8.8 mg/dl (8.6-10.4) 06/19/18 07:53 Phosphorus 3.4 mg/dL (2.5-4.5) 06/19/18 07:53 Magnesium 2.2 mg/dL (1.6-2.3) 06/19/18 07:53 Total Bilirubin 0.5 mg/dL (0.2-1.3) 06/19/18 07:53 AST 22 U/L (17-59) 06/19/18 07:53 ALT 25 U/L (21-72) 06/19/18 07:53 Alkaline Phosphatase 60 U/L (38-126) 06/19/18 07:53 Total Protein 6.3 g/dL (6.3-8.3) 06/19/18 07:53 Albumin 3.9 g/dL (3.5-5.0) 06/19/18 07:53 Globulin 2.4 gm/dL (2.2-3.9) 06/19/18 07:53 Albumin/Globulin Ratio 1.6 (1.0-2.1) 06/19/18 07:53 Ur L.pneumophila Ag Negative (NEGATIVE) 06/17/18 19:42 Mycoplasma pneumon IgM Negative (NEGATIVE) 06/17/18 19:42 Grp A Beta Strep Ag Negative (NEGATIVE) 06/17/18 19:42 Attending/Attestation - Attestation I have personally seen and examined this patient.: Yes I have fully participated in the care of the patient.: Yes I have reviewed all pertinent clinical information, including history, physical exam and plan: Yes Notes (Text): This is late computer entry for 06/19/18. Patient seen, examined and case discussed with day-time resident. Patient seen at bedside this morning. Lung exam improved. Continue to taper steroid. Patient completed Chest xray PA and Lateral no acute findings. Patient is medically stable for discharge. Medications upon discharge: 1) Albuterol HFA 1 puff Q4H PRN shortness of breathe 2) Flovent 1 puff Q12 (in exchange for Breo due to cost) 3) Prednisone 40mg once day for 5 days to start tomorrow 4) Lisinopril 5mg PO daily 5) Norvasc 10mg PO daily 6) Pepcid 20mg PO BID 7) Mucinex 600mg PO BID Patient recommended to follow-up in the [facility] in one week for blood pressure check. This is a summary of patient's hospitalization. Please refer to EMR for full detail of record. Discharge Diagnoses: 1) Asthma exacerbation (Controlled) Upper Respiratory Infection Assessment/Plan * Albuterol HFA 1 puff Q4H PRN shortness of breathe * Flovent 1 puff Q12 (in exchange for Breo due to cost) * Prednisone 40mg once day for 5 days to start tomorrow * Pepcid 20mg PO BID as GI ppx * Mucinex 600mg PO BID 2) Nausea-->controlled Assessment/Plan * Zofran 4 mg IV Q6H PRN 3) Uncontrolled Hypertension Assessment/Plan * Lisinopril 5mg PO daily * Norvasc 10mg PO daily 4) Impaired glucose tolerance Assessment/Plan 5) History of Noncompliance
[2018-06-19] MEDS ORDERED: MethylPREDNISolone 40 mg Vial IVP SCH (18:00)
== END 2018-06-19 14:00 | disposition home or self-care (01) ==
LOC: C.ER 21:56 → C.9E 23:29 → C.6T 06-17 11:59
PROVIDERS: ADMIT Hospitalist; ATTEND Hospitalist
DX: J45.901 Unspecified asthma with (acute) exacerbation (principal); I10 Essential (primary) hypertension; K59.00 Constipation, unspecified; K21.9 Gastro-esophageal reflux disease without esophagitis; Z87.891 Personal history of nicotine dependence; Z91.19 Patient's noncompliance with other medical treatment and regimen; J44.9 Chronic obstructive pulmonary disease, unspecified
CPT/HCPCS: 36415; 71046; 80053; 82948; 83036; 83735; 84100; 85025; 86738; 87070; 87430; 87449; 93005; 94640; 96372; 96374; 96375; 96376; 97110; 97116; 97162; 99285; C9113; G0378; G8978; G8979; J1644; J2405; J2920; J3475

== ENCOUNTER 2018-07-25 06:21 | Inpatient (IN) | payer OTHER ==
[2018-07-25] MEDS ORDERED: Magnesium Sulfate 1 gm in D5W 2 GM/200 ML BAG IVPB ONE (06:28)
[2018-07-25] MEDS ORDERED: Albuterol-Ipratrop 3 mg / 0.5 (3 ml) UD ONE (06:33)
[2018-07-25] MEDS ORDERED: Magnesium Sulfate 1 gm in D5W 1 GM/100 ML BAG IV ONE ×2 (06:38→06:39)
--- NOTE | 2018-07-25 06:44 | C.PDOC ---
History Of Present Illness Patient BIBA for evaluation of SOB, wheezing that started earlier today, associated with nonproductive cough for approx 1 week. He admits to pleuritic chest pain as well. Patient denies fever, palpitations, abdominal pain, nausea/ vomiting. Given IV solumedrol and nebulizer treatments (albuterol x 2, duoineb x1) in the field. PMHx of uncontrolled HTN, asthma, gastritis. Time Seen by Provider: 07/25/18 06:26 Chief Complaint (Nursing): Respiratory Distress History Per: Patient, EMS History/Exam Limitations: clinical condition Onset/Duration Of Symptoms: Hrs Current Symptoms Are (Timing): Still Present Severity: Moderate Past Medical History Reviewed: Historical Data, Nursing Documentation, Vital Signs Vital Signs: Last Vital Signs Temp 99.8 F H 07/25/18 06:23 Pulse 101 H 07/25/18 06:23 Resp 24 07/25/18 06:23 BP 192/116 H 07/25/18 06:23 Pulse Ox 100 07/25/18 06:23 - Medical History PMH: Asthma, Gastritis, HTN Surgical History: Endoscopy - [facility] Procedures EXCISION OF SMALL INTESTINE, ENDO, DIAGN (06/17/16) Family History: States: No Known Family Hx - Social History Hx Tobacco Use: No Hx Alcohol Use: Yes (stopped 12 years ago) Hx Substance Use: No - Immunization History Hx Tetanus Toxoid Vaccination: No Hx Influenza Vaccination: No Hx Pneumococcal Vaccination: No Review Of Systems Constitutional: Negative for: Fever, Chills Cardiovascular: Positive for: Chest Pain (pleuritic ). Negative for: Palpitations Respiratory: Positive for: Cough, Shortness of Breath, Wheezing Gastrointestinal: Negative for: Nausea, Vomiting, Abdominal Pain Skin: Negative for: Rash Physical Exam - Physical Exam Appears: Non-toxic, In Acute Distress (in moderate respiratory distress), Other ((+) audible wheezing) Skin: Warm, Dry Oral Mucosa: Moist Cardiovascular: Rhythm Regular (tachycardic ) Respiratory: Accessory Muscle Use (moderate), No Rales, No Rhonchi, Plerual Rub (diffuse expiratory wheezing B/L ) Gastrointestinal/Abdominal: Normal Exam, Bowel Sounds, Soft, No Tenderness Extremity: Normal ROM, No Pedal Edema, No Calf Tenderness Pulses: Left Dorsalis Pedis: Normal, Right Dorsalis Pedis: Normal Neurological/Psych: Oriented x3 ED Course And Treatment - Laboratory Results Result Diagrams: 07/25/18 06:43 ECG: Interpreted By Me, Viewed By Me (NSR 100 bpm, normal axis, no acute ST/T wave changes) ECG Interpretation: Normal O2 Sat by Pulse Oximetry: 100 (RA) Pulse Ox Interpretation: Normal Progress Note: Blood work, EKG, CXR ordered and reviewed. Patient given magnesium sulfate 2G, terbutaline 0.5mg SC, albuterol neb treatments. Patient admits to being noncompliant with HTN meds, prior visit reviewed - discharged with Norvasc and Lisinopril. Will reassess BP after magnesium sulfate. Critical Care Time - Critical Care Note Total Time (in mins): 35 Documented critical care: time excludes all time spent performing seperately billable procedures. Disposition - Disposition Disposition Time: 07:00 Condition: FAIR Forms: [facility] (Togolese) - Clinical Impression Clinical Impression: Asthma, Dyspnea Physician Patient Turnover Patient Signed Over To: Jonas Isabel Handoff Comments: pending labs, reassessment
[2018-07-25] MEDS ORDERED: Albuterol 0.083% Inhal Sol (2.5 mg/3 mL) UD IH STA ×2 (06:45→06:58)
[2018-07-25 06:51] LABS: BASO # 0.1 K/uL (0.0-0.2); EOS # 1.6 K/uL (0.0-0.7); EOS % 16.3 % (0.0-4.0); HEMOGLOBIN 15.4 g/dL (12.0-18.0); LYMPH # 2.6 K/uL (1.0-4.3); LYMPH % 26.8 % (20.0-40.0); MEAN CELL VOLUME 93.5 fL (80.0-94.0); MEAN CORPUSCULAR HEMOGLOBIN 30.5 pg (27.0-31.0); MEAN CORPUSCULAR HGB CONC 32.7 g/dL (33.0-37.0); MEAN PLATELET VOLUME 9.1 fL (7.2-11.7); MONO # 1.2 K/uL (0.0-0.8); MONO % 12.7 % (0.0-10.0); NEUT # 4.1 K/uL (1.8-7.0); NEUT % 43.2 % (50.0-75.0); RBC 5.03 Mil/uL (4.40-5.90); RED CELL DISTRIBUTION WIDTH 13.8 % (11.5-14.5); WHITE BLOOD COUNT 9.6 K/uL (4.8-10.8)
[2018-07-25 06:59] LABS: PROTHROMBIN TIME 11.4 SECONDS (9.7-12.2)
[2018-07-25 07:01] LABS: ALB/GLOB RATIO 1.7 (1.0-2.1); ALBUMIN 4.5 g/dL (3.5-5.0); ALT/SGPT 24 U/L (21-72); AST/SGOT 31 U/L (17-59); BLOOD UREA NITROGEN 21 mg/dL (9-20); CALCIUM 8.5 mg/dl (8.6-10.4); GFR NON-AFRICAN AMERICAN > 60
[2018-07-25 07:13] LABS: B-TYPE NATRIURETIC PEPTIDE 100 pg/mL (0-900)
--- NOTE | 2018-07-25 08:22 | CP.PCM.HP ---
<StacyRoger - Last Filed: 07/25/18 09:48> History of Present Illness - History of Present Illness History of Present Illness: PGY-[address] Gilbert [employer]er #[id number] Patient is a 63 year old male with past medical history of uncontrolled HTN, asthma, gastritis, medication noncompliance presenting to the ED for worsening shortness of breath and wheezing that began earlier this morning, with associated productive cough and subjective fevers for the past week. Per patient, phlegm production is mostly thick white, sometimes yellow. Patient also endorses pleuritic chest pain. Of note, patient was last admitted in May for similar symptoms, says he did not fill out any medications prescribed to him on discharge because he could not afford them. He states he has an inhaler at home that he uses "many many times" a day. No home O2 use or history of intubation. No fevers/chills, headaches, dizziness, palpitations, abdominal pain, nausea/vomiting/diarrhea/constipation, dysuria, or changes in stool. In the ED, patient was given IV solumedrol, nebs (albuterol x2, duonebs x1) as well as Mg sulfate 2g x1 and terbutaline 0.5 mg SC x1. PMHx: Asthma, HTN, gastritis PSHx: endoscopy to eval gastritis Allergies: NKDA Home Medications: Proair, Norvasc, Pepcid, Breo-Ellipta Family Hx: Mom , breast cancer Social Hx: Former alcohol abuse, quit 2006; former tobacco use, 17 pack years, denies drug use PMD: none Present on Admission - Present on Admission Any Indicators Present on Admission: No Review of Systems - Review of Systems All systems: reviewed and no additional remarkable complaints except Review of Systems: as per HPI - Constitutional Constitutional: absent: Chills, Fever - EENT Eyes: absent: Change in Vision - Cardiovascular Cardiovascular: Dyspnea. absent: Chest Pain, Lightheadedness, Palpitations - Respiratory Respiratory: Dyspnea, Wheezing, Pain on Inspiration - Gastrointestinal Gastrointestinal: absent: Abdominal Pain, Constipation, Diarrhea, Nausea, V omiting - Genitourinary Genitourinary: absent: Dysuria - Musculoskeletal Musculoskeletal: As Per HPI - Neurological Neurological: As Per HPI. absent: Dizziness, Headaches - Psychiatric Psychiatric: As Per HPI - Endocrine Endocrine: As Per HPI Past Patient History - Infectious Disease Hx of Infectious Diseases: None - Past Medical History & Family History Past Medical History?: Yes - Past Social History Smoking Status: Former Smoker - CARDIAC Hx Hypertension: Yes - PULMONARY Hx Asthma: Yes - NEUROLOGICAL Hx Neurological Disorder: No - HEENT Hx HEENT Problems: No - RENAL Hx Chronic Kidney Disease: No - ENDOCRINE/METABOLIC Hx Endocrine Disorders: No - HEMATOLOGICAL/ONCOLOGICAL Hx Blood Disorders: No - INTEGUMENTARY Hx Dermatological Problems: No - MUSCULOSKELETAL/RHEUMATOLOGICAL Hx Musculoskeletal Disorders: No Hx Falls: Yes - GASTROINTESTINAL Hx Gastritis: Yes - GENITOURINARY/GYNECOLOGICAL Hx Genitourinary Disorders: No - PSYCHIATRIC Hx Substance Use: No - SURGICAL HISTORY Hx Surgeries: No - ANESTHESIA Hx Anesthesia: Yes Hx Anesthesia Reactions: No Hx Malignant Hyperthermia: No Meds Allergies/Adverse Reactions: Allergies Allergy/AdvReac Type Severity Reaction Status Date / Time No Known Allergies Allergy Verified 09/02/17 23:51 Physical Exam - Constitutional Appears: Non-toxic - Head Exam Head Exam: ATRAUMATIC, NORMAL INSPECTION, NORMOCEPHALIC - Eye Exam Eye Exam: EOMI, Normal appearance, PERRL Pupil Exam: NORMAL ACCOMODATION - ENT Exam ENT Exam: Normal Exam - Neck Exam Neck exam: Positive for: Full Rom, Normal Inspection - Respiratory Exam Respiratory Exam: Decreased Breath Sounds, Wheezes, Respiratory Distress, NORMAL BREATHING PATTERN. absent: Rales, Rhonchi, Stridor - Cardiovascular Exam Cardiovascular Exam: Tachycardia, +S1, +S2 - GI/Abdominal Exam GI & Abdominal Exam: Normal Bowel Sounds, Soft. absent: Distended, Firm, Guarding, Rebound, Rigid, Tenderness - Extremities Exam Extremities exam: Positive for: full ROM, normal capillary refill, normal inspection, pedal pulses present. Negative for: calf tenderness, pedal edema - Back Exam Back exam: NORMAL INSPECTION - Neurological Exam Neurological exam: Alert, Oriented x3 - Psychiatric Exam Psychiatric exam: Normal Affect, Normal Mood - Skin Skin Exam: Dry, Intact, Normal Color, Warm Results - Vital Signs Recent Vital Signs: Last Vital Signs Temp 99.8 F H 07/25/18 06:23 Pulse 107 H 07/25/18 07:15 Resp 20 07/25/18 07:15 BP 164/97 H 07/25/18 07:15 Pulse Ox 100 07/25/18 07:15 - Labs Result Diagrams: 07/25/18 06:43 07/25/18 06:43 Labs: Laboratory Results - last 24 hr 07/25/18 07/25/18 07/25/18 06:43 06:43 06:43 WBC 9.6 RBC 5.03 Hgb 15.4 D Hct 47.0 MCV 93.5 D MCH 30.5 MCHC 32.7 L RDW 13.8 Plt Count 216 MPV 9.1 Neut % (Auto) 43.2 L Lymph % (Auto) 26.8 Garland % (Auto) 12.7 H Eos % (Auto) 16.3 H Baso % (Auto) 1.0 Neut # (Auto) 4.1 Lymph # (Auto) 2.6 Garland # (Auto) 1.2 H Eos # (Auto) 1.6 H Baso # (Auto) 0.1 PT 11.4 INR 1.0 APTT 32 Sodium 139 Potassium 4.3 Chloride 103 Carbon Dioxide 25 Anion Gap 14 BUN 21 H Creatinine 0.8 Est GFR ( Amer) > 60 Est GFR (Non-Af Amer) > 60 Random Glucose 109 Calcium 8.5 L Total Bilirubin 0.6 AST 31 ALT 24 Alkaline Phosphatase 74 Total Creatine Kinase 135 CK-MB (Mass) 1.70 Troponin I 0.0150 NT-Pro-B Natriuret Pep 100 Total Protein 7.2 Albumin 4.5 Globulin 2.6 Albumin/Globulin Ratio 1.7 Assessment & Plan - Assessment and Plan (Free Text) Assessment: 63 year old M with PMHx of uncontrolled HTN, asthma, gastritis, medication noncompliance presenting with worsening shortness of breath and wheezing with associated dry cough x 1 week, 2/2 asthma exacerbation Plan: Asthma Exacerbation -CXR (07/25): no active disease noted, awaiting final read -EKG (07/25): NSR at 100 bpm -s/p solumedrol 120 mg IV x1, albuterol x 2, Mg sulfate, terbutaline in ED -duonebs q4h L[facility] -albuterol q2H prn -solumedrol 40 mg IV q8h LISE -rocephin, azithromycin -O2 via NC 2L prn HTN -Norvasc 10 mg PO daily -Lisinopril 5 mg PO daily Gastritis -Protonix 40 mg PO daily PPx, Diet, Disposition -DVT ppx: Heparin 5000u SC q8, SCDs -GI ppx: Protonix 40mg po daily -Diet: HHD 2g Na Case discussed with Dr. Gilbert <Chiki Gilbert - Last Filed: 07/27/18 15:31> Results - Vital Signs Recent Vital Signs: Last Vital Signs Temp 98.1 F 07/27/18 08:20 Pulse 101 H 07/27/18 08:20 Resp 20 07/27/18 08:20 BP 160/62 H 07/27/18 10:53 Pulse Ox 99 07/27/18 08:20 - Labs Result Diagrams: 07/27/18 07:02 07/27/18 07:02 Labs: Laboratory Results - last 24 hr 07/26/18 07/26/18 07/27/18 17:07 21:43 06:45 WBC RBC Hgb Hct MCV MCH MCHC RDW Plt Count MPV Neut % (Auto) Lymph % (Auto) Garland % (Auto) Eos % (Auto) Baso % (Auto) Neut # (Auto) Lymph # (Auto) Garland # (Auto) Eos # (Auto) Baso # (Auto) Neutrophils % (Manual) Lymphocytes % (Manual) Monocytes % (Manual) Platelet Estimate RBC Morphology Sodium Potassium Chloride Carbon Dioxide Anion Gap BUN Creatinine Est GFR ( Amer) Est GFR (Non-Af Amer) POC Glucose (mg/dL) 180 H 128 H 126 H Random Glucose Calcium Phosphorus Magnesium Total Bilirubin AST ALT Alkaline Phosphatase Total Protein Albumin Globulin Albumin/Globulin Ratio 07/27/18 07/27/18 07/27/18 07:02 07:02 11:33 WBC 13.7 H RBC 4.22 L Hgb 13.0 Hct 39.2 MCV 92.8 MCH 30.8 MCHC 33.2 RDW 13.9 Plt Count 185 MPV 9.1 Neut % (Auto) 90.7 H Lymph % (Auto) 4.8 L Garland % (Auto) 4.2 Eos % (Auto) 0.0 Baso % (Auto) 0.3 Neut # (Auto) 12.4 H Lymph # (Auto) 0.7 L Garland # (Auto) 0.6 Eos # (Auto) 0.0 Baso # (Auto) 0.0 Neutrophils % (Manual) 94 H Lymphocytes % (Manual) 2 L Monocytes % (Manual) 4 Platelet Estimate Normal RBC Morphology Normal Sodium 134 Potassium 4.1 Chloride 100 Carbon Dioxide 27 Anion Gap 12 BUN 32 H Creatinine 0.9 Est GFR ( Amer) > 60 Est GFR (Non-Af Amer) > 60 POC Glucose (mg/dL) 109 Random Glucose 129 H Calcium 8.8 Phosphorus 3.1 Magnesium 2.2 Total Bilirubin 0.4 AST 24 ALT 24 Alkaline Phosphatase 66 Total Protein 6.3 Albumin 4.0 Globulin 2.3 Albumin/Globulin Ratio 1.8 Attending/Attestation - Attestation I have personally seen and examined this patient.: Yes I have fully participated in the care of the patient.: Yes I have reviewed all pertinent clinical information: Yes Notes (Text): Seen and examined by me. Patient has severe wheezing. History of Asthma. No history of intubation,no recent hospitalization noncompliance with medication. start on steroid,duoneb ,Zithromax and ceftriaxone.s/p Magnesium Continue his blood pressure meds admit to tele Assessment and the plan discussed with the resident and I agree with the documentation
[2018-07-25] MEDS ORDERED: Albuterol HFA 90 mcg/actuation (8 g) INH PRN ×2 (08:36→09:53)
[2018-07-25] MEDS: Pantoprazole 40 mg EC Tab PO SCH (09:53)
[2018-07-25] MEDS: Albuterol-Ipratrop 3 mg / 0.5 (3 ml) UD INH SCH ×4 (11:47→23:37)
[2018-07-25] MEDS ORDERED: MethylPREDNISolone 40 mg Vial IVP SCH (12:00)
--- NOTE | 2018-07-25 12:48 | RAD ---
HISTORY: SOB COMPARISON: Chest x-ray performed 06/19/18 TECHNIQUE: Chest, one view. FINDINGS: Examination limited by habitus and hypoinflation. LUNGS: No focal consolidation. Please note that chest x-ray has limited sensitivity for the detection of pulmonary masses. PLEURA: No significant pleural effusion identified. No definite pneumothorax . CARDIOVASCULAR: Heart size appears within normal limits. No significant atherosclerotic calcification present. OSSEOUS STRUCTURES: No acute osseous abnormality identified. VISUALIZED UPPER ABDOMEN: Unremarkable. OTHER FINDINGS: None. IMPRESSION: Hypoinflation. No focal consolidation identified.
[2018-07-25] MEDS ORDERED: MethylPREDNISolone 40 mg Vial ONE (13:27)
[2018-07-25] MEDS: MethylPREDNISolone 40 mg Vial IVP SCH ×2 (14:03→22:12)
[2018-07-25 14:25] VITALS: RESP 20
[2018-07-26] MEDS: Albuterol-Ipratrop 3 mg / 0.5 (3 ml) UD INH SCH ×5 (03:11→21:50)
[2018-07-26] MEDS: MethylPREDNISolone 40 mg Vial IVP SCH ×3 (06:24→22:10)
[2018-07-26 07:01] LABS: HEMOGLOBIN 14.1 g/dL (12.0-18.0); LYMPH # 0.6 K/uL (1.0-4.3); LYMPH % 5.9 % (20.0-40.0); MEAN CELL VOLUME 92.9 fL (80.0-94.0); MEAN CORPUSCULAR HEMOGLOBIN 31.5 pg (27.0-31.0); MEAN CORPUSCULAR HGB CONC 33.9 g/dL (33.0-37.0); MEAN PLATELET VOLUME 9.3 fL (7.2-11.7); MONO # 0.4 K/uL (0.0-0.8); MONO % 3.5 % (0.0-10.0); NEUT # 9.1 K/uL (1.8-7.0); NEUT % 90.6 % (50.0-75.0); PLATELET COUNT 219 K/uL (130-400); RBC 4.47 Mil/uL (4.40-5.90); RED CELL DISTRIBUTION WIDTH 14.3 % (11.5-14.5)
[2018-07-26 07:43] LABS: ALB/GLOB RATIO 1.8 (1.0-2.1); ALBUMIN 4.5 g/dL (3.5-5.0); ALT/SGPT 24 U/L (21-72); AST/SGOT 25 U/L (17-59); BLOOD UREA NITROGEN 26 mg/dL (9-20); CALCIUM 8.9 mg/dl (8.6-10.4); GFR NON-AFRICAN AMERICAN > 60
[2018-07-26] MEDS ORDERED: Magnesium Sulfate 1 gm in D5W 1 GM/100 ML BAG IVPB ONE (08:09)
[2018-07-26 08:45] LABS: BANDS 1 % (0-2); LYMPHOCYTE 4 % (20-40); MONOCYTE 3 % (0-10); NEUTROPHIL 92 % (50-75); TOTAL CELLS COUNTED 100
[2018-07-26 08:46] LABS: ANISOCYTOSIS SLIGHT; PLATELET ESTIMATE NORMAL (NORMAL); TOXIC GRANULATION PRESENT
[2018-07-26 08:49] LABS: LARGE PLATELETS PRESENT
[2018-07-26 08:50] LABS: POLYCHROMIC SLIGHT
[2018-07-26] MEDS: Pantoprazole 40 mg EC Tab PO SCH (09:01)
[2018-07-26] MEDS: Albuterol HFA 90 mcg/actuation (8 g) INH SCH ×2 (09:26→11:25)
--- NOTE | 2018-07-26 12:20 | CP.PCM.PN ---
<Hema Santiago - Last Filed: 07/26/18 21:15> Subjective - Date & Time of Evaluation Date of Evaluation: 07/26/18 Time of Evaluation: 08:00 - Subjective Subjective: PGY-[address] Gilbert Patient is seen and examined by bedside. As per nurse and night resident, patient had shortness of breath, wheezing, O2 sat at 88%, patient received ventolin and one dose of lasix. during encounter this am, patient continued to complained of wheezing, however patient refused duoneb treatments this morning as he stated doesnt like the bitter smell of the treatment. Patient was standing during encounter and was talking in full sentences. Patient admit to feeling of acid reflux coming up from his stomach, which says it makes his wheezing worst. Patient denies fever, chills, chest pain, n/v/d/c. Objective - Vital Signs/Intake and Output Vital Signs (last 24 hours): Temp Pulse Resp BP Pulse Ox 97.9 F 126 H 20 152/82 H 93 L 07/26/18 07:00 07/26/18 07:45 07/26/18 07:00 07/26/18 07:00 07/26/18 07:00 Intake and Output: 07/26/18 07/26/18 06:59 18:59 Intake Total 120 Output Total 500 Balance -380 - Medications Medications: Current Medications Acetaminophen (Tylenol 325mg Tab) 650 mg PO Q6 PRN PRN Reason: Fever >100.4 F Albuterol (Ventolin Hfa 90 Mcg/Actuation (8 G)) 1 puff INH RQ4 [facility] Last Admin: 07/26/18 11:25 Dose: 1 puff Albuterol/Ipratropium (Duoneb 3 Mg/0.5 Mg (3 Ml) Ud) 3 ml INH RQ4 [facility] Last Admin: 07/26/18 11:25 Dose: 3 ml Amlodipine Besylate (Norvasc) 10 mg PO DAILY [facility] Last Admin: 07/26/18 09:02 Dose: 10 mg Azithromycin (Zithromax) 500 mg PO DAILY [facility]; Protocol Last Admin: 07/26/18 09:55 Dose: 500 mg Benzonatate (Tessalon Perles) 100 mg PO TID [facility] Last Admin: 07/26/18 09:01 Dose: 100 mg Heparin Sodium (Porcine) (Heparin) 5,000 units SC Q8 [facility] Last Admin: 07/26/18 06:24 Dose: 5,000 units Ceftriaxone Sodium 1 gm/ (Sodium Chloride) 100 mls @ 100 mls/hr IVPB DAILY [facility]; Protocol Last Admin: 07/26/18 09:55 Dose: 100 mls/hr Influenza Virus Vaccine (Fluzone Quad [id number]) 60 mcg IM .ONCE ONE Stop: 07/27/18 14:01 Lisinopril (Zestril) 5 mg PO DAILY [facility] Last Admin: 07/26/18 09:01 Dose: 5 mg Methylprednisolone (Solu-Medrol) 40 mg IVP Q8 [facility] Last Admin: 07/26/18 06:24 Dose: 40 mg Pantoprazole Sodium (Protonix Ec Tab) 40 mg PO DAILY [facility] Last Admin: 07/26/18 09:01 Dose: 40 mg - Labs Labs: 07/26/18 06:46 07/26/18 06:46 PT 11.4 SECONDS (9.7-12.2) 07/25/18 06:43 INR 1.0 07/25/18 06:43 APTT 32 SECONDS (21-34) 07/25/18 06:43 - Constitutional Appears: Non-toxic - Head Exam Head Exam: ATRAUMATIC, NORMOCEPHALIC - Eye Exam Eye Exam: EOMI, Normal appearance - ENT Exam ENT Exam: Mucous Membranes Moist, Normal Exam - Neck Exam Neck Exam: Full ROM - Respiratory Exam Respiratory Exam: Decreased Breath Sounds, NORMAL BREATHING PATTERN. absent: Accessory Muscle Use, Respiratory Distress - Cardiovascular Exam Cardiovascular Exam: REGULAR RHYTHM, +S1, +S2 - GI/Abdominal Exam GI & Abdominal Exam: Soft, Normal Bowel Sounds. absent: Tenderness - Extremities Exam Extremities Exam: Full ROM - Back Exam Back Exam: NORMAL INSPECTION - Neurological Exam Neurological Exam: Alert, Awake, Normal Gait, Oriented x3 - Psychiatric Exam Psychiatric exam: Normal Affect, Normal Mood - Skin Skin Exam: Intact, Normal Color, Warm Assessment and Plan - Assessment and Plan (Free Text) Plan: Asthma Exacerbation -CXR (07/25): no active disease noted, awaiting final read -EKG (07/25): NSR at 100 bpm -s/p solumedrol 120 mg IV x1, albuterol x 2, Mg sulfate, terbutaline in ED -continue duonebs q4h [facility] - encouraged to be compliant with treatment -continue albuterol q2H prn -cont solumedrol 40 mg IV q8h [facility] - cont rocephin, azithromycin -O2 via NC 2L prn - encourage when SOB HTN -Norvasc 10 mg PO daily -Lisinopril 5 mg PO daily Gastritis -Protonix 40 mg PO daily PPx, Diet, Disposition -DVT ppx: Heparin 5000u SC q8, SCDs -GI ppx: Protonix 40mg po daily -Diet: HHD 2g Na Plan discussed with Dr Ofelia Santiago, PGY-1 <Chiki Gilbert - Last Filed: 07/27/18 15:37> Objective - Vital Signs/Intake and Output Vital Signs (last 24 hours): Temp Pulse Resp BP Pulse Ox 98.1 F 101 H 20 160/62 H 99 07/27/18 08:20 07/27/18 08:20 07/27/18 08:20 07/27/18 10:53 07/27/18 08:20 - Medications Medications: Current Medications Acetaminophen (Tylenol 325mg Tab) 650 mg PO Q6 PRN PRN Reason: Fever >100.4 F Acetylcysteine (Acetylcysteine 20%) 4 ml INH RQ4 [facility] Last Admin: 07/27/18 11:04 Dose: 4 ml Albuterol (Ventolin Hfa 90 Mcg/Actuation (8 G)) 1 puff INH RQ4 [facility] Last Admin: 07/27/18 11:51 Dose: Not Given Albuterol/Ipratropium (Duoneb 3 Mg/0.5 Mg (3 Ml) Ud) 3 ml INH RQ4 [facility] Last Admin: 07/27/18 11:17 Dose: 3 ml Amlodipine Besylate (Norvasc) 10 mg PO DAILY [facility] Last Admin: 07/27/18 10:51 Dose: 10 mg Benzonatate (Tessalon Perles) 100 mg PO TID [facility] Last Admin: 07/27/18 14:13 Dose: 100 mg Guaifenesin (Mucinex La) 600 mg PO BID [facility] Last Admin: 07/27/18 10:51 Dose: 600 mg Heparin Sodium (Porcine) (Heparin) 5,000 units SC Q8 [facility] Last Admin: 07/27/18 15:29 Dose: Not Given Lisinopril (Zestril) 5 mg PO DAILY [facility] Last Admin: 07/27/18 10:51 Dose: 5 mg Methylprednisolone (Solu-Medrol) 40 mg IVP Q8 [facility] Last Admin: 07/27/18 14:13 Dose: 40 mg Pantoprazole Sodium (Protonix Ec Tab) 40 mg PO DAILY [facility] Last Admin: 07/27/18 10:51 Dose: 40 mg - Labs Labs: 07/27/18 07:02 07/27/18 07:02 PT 11.4 SECONDS (9.7-12.2) 07/25/18 06:43 INR 1.0 07/25/18 06:43 APTT 32 SECONDS (21-34) 07/25/18 06:43 Attending/Attestation - Attestation I have personally seen and examined this patient.: Yes I have fully participated in the care of the patient.: Yes I have reviewed all pertinent clinical information, including history, physical exam and plan: Yes Notes (Text): Patient was short of breath last night. Improved with neb treatment and lasix on examination this morning he was doing better,mild wheezing continue current treatment solumedrol,zithromax,ceftriaxone and duoneb we will follow in the morning Assessment and the plan discussed with the resident and I agree with the documentation
[2018-07-27] MEDS: Albuterol HFA 90 mcg/actuation (8 g) INH SCH ×4 (00:33→11:51)
[2018-07-27] MEDS: Albuterol-Ipratrop 3 mg / 0.5 (3 ml) UD INH SCH ×4 (00:33→11:17)
[2018-07-27] MEDS: MethylPREDNISolone 40 mg Vial IVP SCH ×2 (05:33→14:13)
[2018-07-27 07:06] LABS: BASO % 0.3 % (0.0-2.0); LYMPH # 0.7 K/uL (1.0-4.3); LYMPH % 4.8 % (20.0-40.0); MEAN CELL VOLUME 92.8 fL (80.0-94.0); MEAN CORPUSCULAR HEMOGLOBIN 30.8 pg (27.0-31.0); MEAN CORPUSCULAR HGB CONC 33.2 g/dL (33.0-37.0); MEAN PLATELET VOLUME 9.1 fL (7.2-11.7); MONO # 0.6 K/uL (0.0-0.8); MONO % 4.2 % (0.0-10.0); NEUT # 12.4 K/uL (1.8-7.0); NEUT % 90.7 % (50.0-75.0); PLATELET COUNT 185 K/uL (130-400); RBC 4.22 Mil/uL (4.40-5.90); RED CELL DISTRIBUTION WIDTH 13.9 % (11.5-14.5); WHITE BLOOD COUNT 13.7 K/uL (4.8-10.8)
[2018-07-27 07:30] LABS: ALB/GLOB RATIO 1.8 (1.0-2.1); ALT/SGPT 24 U/L (21-72); AST/SGOT 24 U/L (17-59); BLOOD UREA NITROGEN 32 mg/dL (9-20); CALCIUM 8.8 mg/dl (8.6-10.4); GFR NON-AFRICAN AMERICAN > 60
[2018-07-27 08:05] VITALS: PULSE 101
[2018-07-27 08:22] VITALS: TEMP 98.1; O2SAT 99
[2018-07-27 09:16] LABS: LYMPHOCYTE 2 % (20-40); MONOCYTE 4 % (0-10); NEUTROPHIL 94 % (50-75); PLATELET ESTIMATE NORMAL (NORMAL); TOTAL CELLS COUNTED 100
[2018-07-27] MEDS ORDERED: guaiFENesin 600 mg ER Tab PO SCH (10:00)
[2018-07-27] MEDS: Pantoprazole 40 mg EC Tab PO SCH (10:51)
[2018-07-27 11:15] VITALS: BP 160/62
[2018-07-27] MEDS ORDERED: Acetylcysteine 20% Inhal Soln (4ml) INH SCH (12:00)
[2018-07-27] MEDS ORDERED: Influenza Vaccine 60 MCG/0.5 ML SYR (3 yr & up) IM ONE (14:00)
--- NOTE | 2018-07-27 14:04 | CP.PCM.DIS ---
<ToribiotyTrey - Last Filed: 07/27/18 13:49> Provider - Provider Date of Admission: 07/25/18 07:55 Attending physician: Chiki Gilbert MD Time Spent in preparation of Discharge (in minutes): 70 Hospital Course - Lab Results Lab Results: Most Recent Lab Values WBC 13.7 K/uL (4.8-10.8) H 07/27/18 07:02 RBC 4.22 Mil/uL (4.40-5.90) L 07/27/18 07:02 Hgb 13.0 g/dL (12.0-18.0) 07/27/18 07:02 Hct 39.2 % (35.0-51.0) 07/27/18 07:02 MCV 92.8 fL (80.0-94.0) 07/27/18 07:02 MCH 30.8 pg (27.0-31.0) 07/27/18 07:02 MCHC 33.2 g/dL (33.0-37.0) 07/27/18 07:02 RDW 13.9 % (11.5-14.5) 07/27/18 07:02 Plt Count 185 K/uL (130-400) 07/27/18 07:02 MPV 9.1 fL (7.2-11.7) 07/27/18 07:02 Neut % (Auto) 90.7 % (50.0-75.0) H 07/27/18 07:02 Lymph % (Auto) 4.8 % (20.0-40.0) L 07/27/18 07:02 Mcintosh % (Auto) 4.2 % (0.0-10.0) 07/27/18 07:02 Eos % (Auto) 0.0 % (0.0-4.0) 07/27/18 07:02 Baso % (Auto) 0.3 % (0.0-2.0) 07/27/18 07:02 Neut # (Auto) 12.4 K/uL (1.8-7.0) H 07/27/18 07:02 Lymph # (Auto) 0.7 K/uL (1.0-4.3) L 07/27/18 07:02 Mcintosh # (Auto) 0.6 K/uL (0.0-0.8) 07/27/18 07:02 Eos # (Auto) 0.0 K/uL (0.0-0.7) 07/27/18 07:02 Baso # (Auto) 0.0 K/uL (0.0-0.2) 07/27/18 07:02 Neutrophils % (Manual) 94 % (50-75) H 07/27/18 07:02 Band Neutrophils % 1 % (0-2) 07/26/18 06:46 Lymphocytes % (Manual) 2 % (20-40) L 07/27/18 07:02 Monocytes % (Manual) 4 % (0-10) 07/27/18 07:02 Toxic Granulation Present 07/26/18 06:46 Platelet Estimate Normal (NORMAL) 07/27/18 07:02 Large Platelets Present 07/26/18 06:46 RBC Morphology Normal 07/27/18 07:02 Polychromasia Slight 07/26/18 06:46 Anisocytosis (manual) Slight 07/26/18 06:46 PT 11.4 SECONDS (9.7-12.2) 07/25/18 06:43 INR 1.0 07/25/18 06:43 APTT 32 SECONDS (21-34) 07/25/18 06:43 Sodium 134 mmol/L (132-148) 07/27/18 07:02 Potassium 4.1 mmol/L (3.6-5.2) 07/27/18 07:02 Chloride 100 mmol/L (98-107) 07/27/18 07:02 Carbon Dioxide 27 mmol/L (22-30) 07/27/18 07:02 Anion Gap 12 (10-20) 07/27/18 07:02 BUN 32 mg/dL (9-20) H 07/27/18 07:02 Creatinine 0.9 mg/dL (0.8-1.5) 07/27/18 07:02 Est GFR ( Amer) > 60 07/27/18 07:02 Est GFR (Non-Af Amer) > 60 07/27/18 07:02 POC Glucose (mg/dL) 109 mg/dL (65-110) 07/27/18 11:33 Random Glucose 129 mg/dL (75-110) H 07/27/18 07:02 Hemoglobin A1c 5.7 % (4.2-6.5) 07/25/18 08:54 Calcium 8.8 mg/dl (8.6-10.4) 07/27/18 07:02 Phosphorus 3.1 mg/dL (2.5-4.5) 07/27/18 07:02 Magnesium 2.2 mg/dL (1.6-2.3) 07/27/18 07:02 Total Bilirubin 0.4 mg/dL (0.2-1.3) 07/27/18 07:02 AST 24 U/L (17-59) 07/27/18 07:02 ALT 24 U/L (21-72) 07/27/18 07:02 Alkaline Phosphatase 66 U/L (38-126) 07/27/18 07:02 Total Creatine Kinase 135 U/L (55-170) 07/25/18 06:43 CK-MB (Mass) 1.70 ng/mL (0.0-3.38) 07/25/18 06:43 Troponin I 0.0150 ng/mL (0.00-0.120) 07/25/18 06:43 NT-Pro-B Natriuret Pep 100 pg/mL (0-900) 07/25/18 06:43 Total Protein 6.3 g/dL (6.3-8.3) 07/27/18 07:02 Albumin 4.0 g/dL (3.5-5.0) 07/27/18 07:02 Globulin 2.3 gm/dL (2.2-3.9) 07/27/18 07:02 Albumin/Globulin Ratio 1.8 (1.0-2.1) 07/27/18 07:02 Influenza Typ A,B (EIA) Negative for flu a/b (NEGATIVE) 07/25/18 12:20 - Hospital Course Hospital Course: Upon Admission: Patient is a 63 year old male with past medical history of uncontrolled HTN, asthma, gastritis, medication noncompliance presenting to the ED for worsening shortness of breath and wheezing that began earlier this morning, with associated productive cough and subjective fevers for the past week. Per patient, phlegm production is mostly thick white, sometimes yellow. Patient also endorses pleuritic chest pain. Of note, patient was last admitted in May for similar symptoms, says he did not fill out any medications prescribed to him on discharge because he could not afford them. He states he has an inhaler at home that he uses "many many times" a day. No home O2 use or history of intubation. No fevers/chills, headaches, dizziness, palpitations, abdominal pain, nausea/vomiting/diarrhea/constipation, dysuria, or changes in stool. In the ED, patient was given IV solumedrol, nebs (albuterol x2, duonebs x1) as well as Mg sulfate 2g x1 and terbutaline 0.5 mg SC x1. Pt was admitted for asthma exacerbation. Hospital Course: CXR showed hyperinflation, but no consolidations. Pt was given nebulizer treatment and IV solumedrol. Pt was restarted on his home blood pressure medications. Pt remained afebrile throughout his admission. Pt had leukocytosis, likely secondary to steroids. Pt's breathing improved throughout his stay. Pt had an O2 sat 95% on room air. Pt was walked and saturation decreased to 94%. Pt denied any shortness of breath throughout the walk. Pt was deemed stable for discharge. Upon Discharge: Pt was deemed stable for discharge to home. There was concern that pt would not be able to obtain his ventolin inhaler, albuterol nebulizer, and BP meds due to money and noncompliance. Pt was given address and instructions on how to get to [facility] in [place], as he lives in [place]. The [facility] offered $4 for each BP med and albuterol. Pt was instructed to follow up with the [facility]. Pt understood instructions and agreed. Discharge Exam - Head Exam Head Exam: ATRAUMATIC, NORMOCEPHALIC - Eye Exam Eye Exam: EOMI, Normal appearance, PERRL Pupil Exam: NORMAL ACCOMODATION - Respiratory Exam Respiratory Exam: Wheezes, NORMAL BREATHING PATTERN. absent: Rales, Rhonchi Additional comments: mild expiratory wheezes in R lower lung field - Cardiovascular Exam Cardiovascular Exam: REGULAR RHYTHM, +S1, +S2. absent: Gallop, Rubs, Systolic Murmur - GI/Abdominal Exam GI & Abdominal Exam: Normal Bowel Sounds, Soft. absent: Distended, Tenderness - Extremities Exam Extremities exam: normal inspection - Neurological Exam Neurological exam: Alert, Oriented x3 - Psychiatric Exam Psychiatric exam: Normal Affect, Normal Mood - Skin Skin Exam: Normal Color Discharge Plan - Discharge Medications Prescriptions: RX: Albuterol HFA [Ventolin HFA 90 mcg/actuation (8 g)] 1 puff INH RQ4 #1 inhaler RX: amLODIPine [Norvasc] 10 mg PO DAILY 30 Days #30 tab RX: Benzonatate [Tessalon Perles] 100 mg PO TID #15 sgl RX: guaiFENesin [Mucinex LA] 600 mg PO BID #30 tab RX: Lisinopril [Zestril] 5 mg PO DAILY 30 Days #30 tab Methylprednisolone [Medrol Dose Pack (21 tabs)] 4 mg PO DAILY #21 mg - Follow Up Plan Condition: FAIR Disposition: HOME/ ROUTINE Instructions: Asthma, Adult (DC), COPD Including Emphysema (DC), Albuterol, Amlodipine, Benzonatate, Guaifenesin, Lisinopril, Methylprednisolone Additional Instructions: Please follow up with a primary care physician at the [facility]. Please call [phone] to make an appointment. Please take your medications as prescribed. Please return to the emergency department if symptoms return. Take care and be well. Por favor alexis un seguimiento con un mdico de atencin primaria en la [facility]. Por favor llame al [phone] para hacer yamini rachael. Por favor, tome dami medicamentos segn lo prescrito. Por favor regrese al departamento de emergencias si los sntomas regresan. Cudate y sintete lo. Referrals: [facility] at [facility] [Outside] <Chiki Gilbert - Last Filed: 07/27/18 15:33> Provider - Provider Date of Admission: 07/25/18 07:55 Attending physician: Chiki Gilbert MD Hospital Course - Lab Results Lab Results: Most Recent Lab Values WBC 13.7 K/uL (4.8-10.8) H 07/27/18 07:02 RBC 4.22 Mil/uL (4.40-5.90) L 07/27/18 07:02 Hgb 13.0 g/dL (12.0-18.0) 07/27/18 07:02 Hct 39.2 % (35.0-51.0) 07/27/18 07:02 MCV 92.8 fL (80.0-94.0) 07/27/18 07:02 MCH 30.8 pg (27.0-31.0) 07/27/18 07:02 MCHC 33.2 g/dL (33.0-37.0) 07/27/18 07:02 RDW 13.9 % (11.5-14.5) 07/27/18 07:02 Plt Count 185 K/uL (130-400) 07/27/18 07:02 MPV 9.1 fL (7.2-11.7) 07/27/18 07:02 Neut % (Auto) 90.7 % (50.0-75.0) H 07/27/18 07:02 Lymph % (Auto) 4.8 % (20.0-40.0) L 07/27/18 07:02 Mcintosh % (Auto) 4.2 % (0.0-10.0) 07/27/18 07:02 Eos % (Auto) 0.0 % (0.0-4.0) 07/27/18 07:02 Baso % (Auto) 0.3 % (0.0-2.0) 07/27/18 07:02 Neut # (Auto) 12.4 K/uL (1.8-7.0) H 07/27/18 07:02 Lymph # (Auto) 0.7 K/uL (1.0-4.3) L 07/27/18 07:02 Mcintosh # (Auto) 0.6 K/uL (0.0-0.8) 07/27/18 07:02 Eos # (Auto) 0.0 K/uL (0.0-0.7) 07/27/18 07:02 Baso # (Auto) 0.0 K/uL (0.0-0.2) 07/27/18 07:02 Neutrophils % (Manual) 94 % (50-75) H 07/27/18 07:02 Band Neutrophils % 1 % (0-2) 07/26/18 06:46 Lymphocytes % (Manual) 2 % (20-40) L 07/27/18 07:02 Monocytes % (Manual) 4 % (0-10) 07/27/18 07:02 Toxic Granulation Present 07/26/18 06:46 Platelet Estimate Normal (NORMAL) 07/27/18 07:02 Large Platelets Present 07/26/18 06:46 RBC Morphology Normal 07/27/18 07:02 Polychromasia Slight 07/26/18 06:46 Anisocytosis (manual) Slight 07/26/18 06:46 PT 11.4 SECONDS (9.7-12.2) 07/25/18 06:43 INR 1.0 07/25/18 06:43 APTT 32 SECONDS (21-34) 07/25/18 06:43 Sodium 134 mmol/L (132-148) 07/27/18 07:02 Potassium 4.1 mmol/L (3.6-5.2) 07/27/18 07:02 Chloride 100 mmol/L (98-107) 07/27/18 07:02 Carbon Dioxide 27 mmol/L (22-30) 07/27/18 07:02 Anion Gap 12 (10-20) 07/27/18 07:02 BUN 32 mg/dL (9-20) H 07/27/18 07:02 Creatinine 0.9 mg/dL (0.8-1.5) 07/27/18 07:02 Est GFR ( Amer) > 60 07/27/18 07:02 Est GFR (Non-Af Amer) > 60 07/27/18 07:02 POC Glucose (mg/dL) 109 mg/dL (65-110) 07/27/18 11:33 Random Glucose 129 mg/dL (75-110) H 07/27/18 07:02 Hemoglobin A1c 5.7 % (4.2-6.5) 07/25/18 08:54 Calcium 8.8 mg/dl (8.6-10.4) 07/27/18 07:02 Phosphorus 3.1 mg/dL (2.5-4.5) 07/27/18 07:02 Magnesium 2.2 mg/dL (1.6-2.3) 07/27/18 07:02 Total Bilirubin 0.4 mg/dL (0.2-1.3) 07/27/18 07:02 AST 24 U/L (17-59) 07/27/18 07:02 ALT 24 U/L (21-72) 07/27/18 07:02 Alkaline Phosphatase 66 U/L (38-126) 07/27/18 07:02 Total Creatine Kinase 135 U/L (55-170) 07/25/18 06:43 CK-MB (Mass) 1.70 ng/mL (0.0-3.38) 07/25/18 06:43 Troponin I 0.0150 ng/mL (0.00-0.120) 07/25/18 06:43 NT-Pro-B Natriuret Pep 100 pg/mL (0-900) 07/25/18 06:43 Total Protein 6.3 g/dL (6.3-8.3) 07/27/18 07:02 Albumin 4.0 g/dL (3.5-5.0) 07/27/18 07:02 Globulin 2.3 gm/dL (2.2-3.9) 07/27/18 07:02 Albumin/Globulin Ratio 1.8 (1.0-2.1) 07/27/18 07:02 Influenza Typ A,B (EIA) Negative for flu a/b (NEGATIVE) 07/25/18 12:20 Attending/Attestation - Attestation I have personally seen and examined this patient.: Yes I have fully participated in the care of the patient.: Yes I have reviewed all pertinent clinical information, including history, physical exam and plan: Yes Notes (Text): Seen and examined no cough,not sob,occ wheeze ambulate without hypoxia d/c home on above meds.Discussed about buying meds cheap at [facility]. spoke about compliance to avoid exacerbation
== END 2018-07-27 15:15 | disposition home or self-care (01) | DRG 141 ==
LOC: C.ER 06:21 → C.9E 07:55 → C.6T 14:20
PROVIDERS: ADMIT Family Medicine; ATTEND Internal Medicine
DX: J45.901 Unspecified asthma with (acute) exacerbation (principal); I10 Essential (primary) hypertension; Z87.891 Personal history of nicotine dependence; Z91.14 Patient's other noncompliance with medication regimen; Z91.19 Patient's noncompliance with other medical treatment and regimen; T38.0X5A Adverse effect of glucocorticoids and synthetic analogues, initial encounter; D72.829 Elevated white blood cell count, unspecified

== ENCOUNTER 2018-09-16 23:00 | Emergency (ER) | payer SELFPAY ==
[2018-09-16 23:15] VITALS: O2SAT 99
--- NOTE | 2018-09-16 23:20 | C.PDOC ---
History Of Present Illness Patient presents with about 1 weeks of worthening cough, shortness of breath, wheezing and some chest discomfort only with cough, non productive. speaking in 4-5 word sentences. No f/c/n/v. Toleratingpo Time Seen by Provider: 09/16/18 23:20 Chief Complaint (Nursing): Chest Pain History Per: Patient History/Exam Limitations: no limitations Onset/Duration Of Symptoms: Days Current Symptoms Are (Timing): Still Present Severity: Moderate Pain Scale Rating Of: 4 Recent travel outside of the [place] States: No Additional History Per: Family Past Medical History Reviewed: Historical Data, Nursing Documentation, Vital Signs Vital Signs: Last Vital Signs Temp 98.4 F 09/16/18 23:12 Pulse 110 H 09/16/18 23:12 Resp 24 09/16/18 23:12 BP 203/120 H 09/16/18 23:12 Pulse Ox 99 09/16/18 23:12 - Medical History PMH: Asthma, COPD (ASTHMA), Gastritis, HTN Denies: Chronic Kidney Disease Surgical History: Endoscopy - [facility] Procedures EXCISION OF SMALL INTESTINE, ENDO, DIAGN (06/17/16) Family History: States: No Known Family Hx - Social History Hx Tobacco Use: No Hx Alcohol Use: No Hx Substance Use: No - Immunization History Hx Tetanus Toxoid Vaccination: No Hx Influenza Vaccination: No Hx Pneumococcal Vaccination: No Review Of Systems Constitutional: Negative for: Fever, Chills Eyes: Negative for: Redness ENT: Negative for: Throat Pain Cardiovascular: Negative for: Chest Pain Respiratory: Positive for: Cough, Wheezing Gastrointestinal: Negative for: Nausea, Vomiting, Abdominal Pain Genitourinary: Negative for: Dysuria Musculoskeletal: Negative for: Back Pain Skin: Negative for: Rash Neurological: Negative for: Weakness Psych: Negative for: Anxiety Physical Exam - Physical Exam Appears: Non-toxic Skin: Warm, Dry Head: Normacephalic Eye(s): bilateral: Normal Inspection Oral Mucosa: Moist Neck: Supple Chest: Symmetrical Cardiovascular: Rhythm Regular Respiratory: Decreased Breath Sounds, No Rales, Rhonchi, Wheezing Gastrointestinal/Abdominal: Soft, No Tenderness, No Distention Back: No CVA Tenderness Extremity: Normal ROM Extremity: Bilateral: Atraumatic Neurological/Psych: Oriented x3 Gait: Steady ED Course And Treatment - Laboratory Results Result Diagrams: 09/16/18 23:47 09/16/18 23:47 ECG: Interpreted By Me, Viewed By Me ECG Rhythm: Sinus Rhythm (107), Nonspecific Changes O2 Sat by Pulse Oximetry: 99 Pulse Ox Interpretation: Normal - Radiology CXR: Interpreted by Me, Viewed By Me CXR Interpretation: No: Infiltrates, Fracture, Pnemothorax Progress Note: pt speaking in complete sentences. no wheezing. Wants to go home Reevaluation Time: 01:08 Reassessment Condition: Improved Disposition Counseled Patient/Family Regarding: Studies Performed, Diagnosis, Need For Followup, Rx Given - Disposition Referrals: [facility] [Outside] Disposition: HOME/ ROUTINE Disposition Time: 23:20 Condition: FAIR Additional Instructions: Por favor regrese si los sntomas recurren. Prescriptions: Albuterol HFA [Ventolin HFA 90 mcg/actuation (8 g)] 2 puff IH [id number] PRN #1 puff PRN Reason: Wheezing Albuterol/Ipratropium [Duoneb 3 MG/3 Ml-0.5 MG/3 Ml 3 Ml] 1 ea IH QID PRN #50 neb PRN Reason: Wheezing Azithromycin [Zithromax Tri-Maycol] 500 mg PO DAILY #3 tab Prednisone [Deltasone] 20 mg PO DAILY #5 tablet Instructions: Asthma, Adult (DC) Forms: [email or web address] (Serbian) Print Language: FRENCH - Clinical Impression Clinical Impression: Asthma exacerbation
[2018-09-16] MEDS ORDERED: Albuterol-Ipratrop 3 mg / 0.5 (3 ml) UD ONE (23:24)
[2018-09-16] MEDS: Albuterol-Ipratrop 3 mg / 0.5 (3 ml) UD IH SCH (23:27)
[2018-09-16 23:50] LABS: BASO # 0.1 K/uL (0.0-0.2); BASO % 0.9 % (0.0-2.0); EOS # 1.4 K/uL (0.0-0.7); EOS % 15.7 % (0.0-4.0); LYMPH # 2.1 K/uL (1.0-4.3); LYMPH % 22.4 % (20.0-40.0); MEAN CELL VOLUME 92.7 fL (80.0-94.0); MEAN CORPUSCULAR HEMOGLOBIN 31.1 pg (27.0-31.0); MEAN CORPUSCULAR HGB CONC 33.6 g/dL (33.0-37.0); MEAN PLATELET VOLUME 9.3 fL (7.2-11.7); MONO # 0.8 K/uL (0.0-0.8); MONO % 8.4 % (0.0-10.0); NEUT # 4.8 K/uL (1.8-7.0); NEUT % 52.6 % (50.0-75.0); RBC 4.84 Mil/uL (4.40-5.90); RED CELL DISTRIBUTION WIDTH 13.1 % (11.5-14.5); WHITE BLOOD COUNT 9.2 K/uL (4.8-10.8)
[2018-09-16 23:59] LABS: HEMOGLOBIN 15.1 g/dL (12.0-18.0)
[2018-09-17] MEDS: Albuterol-Ipratrop 3 mg / 0.5 (3 ml) UD IH SCH
[2018-09-17 00:03] LABS: INR 1.1; PROTHROMBIN TIME 11.7 SECONDS (9.7-12.2)
[2018-09-17 00:06] LABS: ALB/GLOB RATIO 1.7 (1.0-2.1); ALBUMIN 4.3 g/dL (3.5-5.0); ALT/SGPT 20 U/L (21-72); AST/SGOT 33 U/L (17-59); BLOOD UREA NITROGEN 18 mg/dL (9-20); CALCIUM 9.2 mg/dl (8.6-10.4); GFR NON-AFRICAN AMERICAN > 60
[2018-09-17 00:17] LABS: B-TYPE NATRIURETIC PEPTIDE 52.3 pg/mL (0-900)
[2018-09-17 00:26] LABS: ABG ALLEN TEST YES; ARTERIAL BLOOD GAS HCO3 25.8 mmol/L (21-28); ARTERIAL BLOOD GAS O2 SAT 98.7 % (95-98); ARTERIAL BLOOD GAS PCO2 37 mm/Hg (35-45); ARTERIAL BLOOD GAS PH 7.44 (7.35-7.45); ARTERIAL BLOOD GAS PO2 96 mm/Hg (80-100); ARTERIAL BLOOD GAS TCO2 26.2 mmol/L (22-28)
[2018-09-17 00:32] VITALS: BP 165/102; PULSE 78; RESP 17; TEMP 98
--- NOTE | 2018-09-17 15:38 | RAD ---
Date of service: 09/17/2018 PROCEDURE: CHEST RADIOGRAPH, 1 VIEW HISTORY: SOB COMPARISON: 07/25/2018 FINDINGS: LUNGS: Clear. PLEURA: No pneumothorax or pleural fluid seen. CARDIOVASCULAR: No aortic atherosclerotic calcification present. Normal. OSSEOUS STRUCTURES: No significant abnormalities. VISUALIZED UPPER ABDOMEN: Normal. OTHER FINDINGS: None. IMPRESSION: No active disease.
== END 2018-09-17 02:34 | disposition home or self-care (01) ==
LOC: C.ER 23:00
DX: J45.901 Unspecified asthma with (acute) exacerbation (principal); I10 Essential (primary) hypertension; Z87.891 Personal history of nicotine dependence
CPT/HCPCS: 71045; 80053; 82803; 83880; 84484; 85025; 85610; 85730; 87040; 87804; 96374; 99285; J2930